=== PATIENT | male | born 1935 | race Caucasian/White ===

== ENCOUNTER → 2016-12-13 | Outpatient (CLI) | payer OTHER, MEDICARE ==
[2016-12-13 16:33] LABS: BASO % 0.6 %; BASO ABS # 0.05 K/uL (0-0.2); COMPLETE YES; EOS % 3.1 %; HEMATOCRIT 41.2 % (42-52); IG% 1.2 %; LYMPH % 23.9 %; LYMPH ABS # 1.85 K/uL (1.2-3.4); MEAN CELL VOLUME 96.3 fL (80-100); MEAN CORPUSCULAR HEMOGLOBIN 33.2 pg (25-34); MEAN CORPUSCULAR HGB CONC 34.5 g/dl (32-36); MONO % 8.7 %; NEUT % 62.5 %; PLATELET COUNT 245 K/uL (130-400); RED BLOOD COUNT 4.28 M/uL (4.7-6.1); WHITE BLOOD COUNT 7.74 K/uL (4.8-10.8)
[2016-12-13 16:46] LABS: ALT/SGPT 31 U/L (12-78); AST/SGOT 19 U/L (15-37); BLOOD UREA NITROGEN 24 mg/dl (7-18); BUN/CREATININE RATIO 14.1 (10-20); CALCIUM 9.1 mg/dl (8.5-10.1); CARBON DIOXIDE 36 mmol/L (21-32); CHLORIDE 101 mmol/L (98-107); GLUCOSE 129 mg/dl (70-99); POTASSIUM 4.8 mmol/L (3.5-5.1); SODIUM 140 mmol/L (136-145)
[2016-12-13 16:56] LABS: ALKALINE PHOSPHATASE 55 U/L (45-117); CHOLESTEROL 168 mg/dl (0-200); CHOLESTEROL/HDL RATIO 5.1; HDL CHOLESTEROL 33 mg/dl; LDL CHOLESTEROL CALCULATED 102 mg/dl; TRIGLYCERIDES 167 mg/dl (0-150); VERY LOW DENSITY LIPOPROT CALC 33 mg/dl
[2016-12-13 17:02] LABS: ESTIMATED AVERAGE GLUCOSE 143 mg/dl; HA1C FLAG Normal (Normal)
== END | disposition home or self-care (01) ==
LOC: C.LABBFT 11:33
PROVIDERS: ATTEND Internal Medicine
DX: J44.0 Chronic obstructive pulmonary disease with (acute) lower respiratory infection (principal); I10 Essential (primary) hypertension; R73.01 Impaired fasting glucose

== ENCOUNTER → 2017-01-28 | Outpatient (CLI) | payer OTHER, MEDICARE ==
--- NOTE | 2017-01-29 14:36 | PULMONARY FUNCTION TEST ---
SPIROMETRY: Very severe obstructive ventilatory disease. No signs of significant reversibility. LUNG VOLUMES: Notable signs of hyperinflation with elevated residual volume. DIFFUSION CAPACITY: Moderately decreased with correction based off alveolar ventilation.
--- NOTE | 2017-01-29 14:42 | PULMONARY FUNCTION TEST ---
This dictation is based off ATS criteria. SPIROMETRY: Very severe obstructive ventilatory disease with no signs of significant reversibility. LUNG VOLUMES: Hyperinflation noted with elevated residual volume. DIFFUSION: Moderately decreased diffusion capacity which corrects to alveolar volume.
== END | disposition home or self-care (01) ==
LOC: C.RC 11:03
PROVIDERS: ATTEND Physician Assistant
DX: J43.9 Emphysema, unspecified (principal); J44.9 Chronic obstructive pulmonary disease, unspecified

== ENCOUNTER → 2017-06-20 | Outpatient (CLI) | payer OTHER, MEDICARE ==
[2017-06-20 17:00] LABS: HEMATOCRIT 39.2 % (42-52); MEAN CELL VOLUME 93.8 fL (80-100); MEAN CORPUSCULAR HEMOGLOBIN 32.3 pg (25-34); MEAN CORPUSCULAR HGB CONC 34.4 g/dl (32-36); MEAN PLATELET VOLUME 10.3 fL (7.4-10.4); PLATELET COUNT 289 K/uL (130-400); RED BLOOD COUNT 4.18 M/uL (4.7-6.1)
[2017-06-20 17:12] LABS: BLOOD UREA NITROGEN 23 mg/dl (7-18); BUN/CREATININE RATIO 13.7 (10-20); CALCIUM 9.1 mg/dl (8.5-10.1); CARBON DIOXIDE 30 mmol/L (21-32); CHLORIDE 101 mmol/L (98-107); GLUCOSE 106 mg/dl (70-99); POTASSIUM 4.1 mmol/L (3.5-5.1); SODIUM 137 mmol/L (136-145)
[2017-06-20 17:19] LABS: ALB/GLOB RATIO 1.1 (0.9-2); ALKALINE PHOSPHATASE 59 U/L (45-117); ALT/SGPT 19 U/L (12-78); AST/SGOT 12 U/L (15-37); CHOLESTEROL 166 mg/dl (0-200); CHOLESTEROL/HDL RATIO 4.9; HDL CHOLESTEROL 34 mg/dl; LDL CHOLESTEROL CALCULATED 111 mg/dl; TRIGLYCERIDES 107 mg/dl (0-150); VERY LOW DENSITY LIPOPROT CALC 21 mg/dl
[2017-06-20 17:55] LABS: RATIO 378.8 mcg/mg (0-30.0)
== END | disposition home or self-care (01) ==
LOC: C.LABBFT 13:49
PROVIDERS: ATTEND Internal Medicine
DX: E11.9 Type 2 diabetes mellitus without complications (principal); J44.9 Chronic obstructive pulmonary disease, unspecified

== ENCOUNTER 2017-12-20 10:06 | Emergency (ER) | payer OTHER, MEDICARE ==
[~2017-12-20] VITALS: Ht 167.6 cm; Wt 89.9 kg
[2017-12-20 10:17] VITALS: TEMP 36.8; Ht 167.6 cm; Wt 89.9 kg
[2017-12-20] MEDS ORDERED: OXYMETAZOLINE HCL 0.05% NA SPR 15 ML BTL ONE (10:26)
[2017-12-20] MEDS ORDERED: OXYMETAZOLINE HCL 0.05% NA SPR 15 ML BTL STA (10:28)
[2017-12-20 11:24] LABS: BASO % 0.5 %; BASO ABS # 0.05 K/uL (0-0.2); EOS % 2.7 %; EOS ABS # 0.28 K/uL (0-0.5); HEMATOCRIT 36.8 % (42-52); HEMOGLOBIN 13.2 g/dL (14.0-18.0); IG# 0.04 K/uL (0.00-0.02); LYMPH % 13.2 %; LYMPH ABS # 1.39 K/uL (1.2-3.4); MEAN CELL VOLUME 94.6 fL (80-100); MEAN CORPUSCULAR HEMOGLOBIN 33.9 pg (25-34); MEAN CORPUSCULAR HGB CONC 35.9 g/dl (32-36); MEAN PLATELET VOLUME 9.7 fL (7.4-10.4); MONO % 6.9 %; MONO ABS # 0.73 K/uL (0.11-0.59); NEUT % 76.3 %; NEUT ABS # 8.04 K/uL (1.4-6.5); PLATELET COUNT 289 K/uL (130-400); RED CELL DISTRIBUTION WIDTH CV 13.4 % (11.5-14.5); RED CELL DISTRIBUTION WIDTH SD 45.9 fL (36.4-46.3); WHITE BLOOD COUNT 10.53 K/uL (4.8-10.8)
[2017-12-20 11:32] LABS: PTT PATIENT 25.4 SECONDS (21.0-31.0)
[2017-12-20 11:42] LABS: CREATININE 1.74 mg/dl (0.60-1.40); POTASSIUM 4.5 mmol/L (3.5-5.1)
--- NOTE | 2017-12-20 12:00 | EMERGENCY ROOM VISIT NOTE ---
ED Visit Note First contact with patient: 10:46 Patient was seen by our PA/METROLOGIST. I was involved in the patient's care and did evaluate the patient myself. I was involved in the care throughout the ER stay. The patient was bleeding from the right side of his nose. The blood could be seen coming from the anterior septum. The patient had a Rhino pack placed without difficulty. This seemed to control the bleeding. Laboratory testing was essentially unremarkable, no change compared to previous values. His blood pressure was nicely controlled. He will be discharged with antibiotics and outpatient follow-up.
[2017-12-20] MEDS ORDERED: AMX500 PO (12:48)
--- NOTE | 2017-12-20 12:48 | EMERGENCY ROOM VISIT NOTE ---
History First contact with patient: 10:46 Chief Complaint: NOSE BLEED (MINOR) Stated Complaint: NOSE BLEED History of Present Illness The patient is a 82 year old male who presents to the Emergency Room via private vehicle accompanied by with complaints of "nosebleed". The patient states that earlier today around 8:30 AM he had a spontaneous right- sided nosebleed. He denies any blood thinners. He denies any trauma or injury. He notes that he cannot get the bleeding to stop therefore prompting his arrival here today. He notes that he does experience nosebleeds frequently but notes that he does utilize 4 L of nasal cannula provided oxygen at night. He denies any pain. He denies any lightheadedness, syncope, or dizziness beyond baseline. Review of Systems A complete 10-point Review of Systems was discussed with the patient, with pertinent positives and negatives listed in the History of Present Illness. All remaining Review of Systems questions can be considered negative unless otherwise specified. Past Medical/Surgical History High blood pressure, pneumonia. Family History Noncontributory. Social History Smoking Status: Never Smoker Patient lives locally with family. Current/Historical Medications Scheduled Amoxicillin (Amoxicillin), 500 MG PO BID Aspirin (Aspirin Ec), 81 MG PO QAM Hydrochlorothiazide (Hctz), 25 MG PO QAM Ipratropium-Albuterol (Duoneb), 1 TREATMENT INH QID Levothyroxine Sodium (Levothyroxine Sodium), 1 TAB PO QAM Lisinopril (Zestril), 20 MG PO QAM Umeclidinium-Vilanterol (Anoro Ellipta 62.5-25 Mcg/INH), 1 PUFF INH QAM Scheduled PRN Albuterol Sulfate (Proair Respiclick), 2 PUFFS INH QID PRN for SOB/Wheezing Physical Exam Vital Signs Date Time Temp Pulse Resp B/P (MAP) Pulse Ox O2 Delivery O2 Flow Rate FiO2 12/20/17 13:19 120 18 97/74 93 Room Air 12/20/17 10:17 36.8 136 20 132/78 93 Room Air Physical Exam VITAL SIGNS - Vital signs and nursing notes were reviewed. Patient is tachycardic, respirating on room air 93% with BP at 132/78. GENERAL -82-year-old male appearing his stated age who is in no acute distress. Communicates well with provider and answers questions appropriately. SKIN - Without rashes. No meningeal petechial rash. There is bleeding from the right nare. HEAD - NC/AT. EYES - PERRL with EOMI bilaterally. Sclera anicteric. No hyphema. EARS - No deformities of external structures noted on gross examination bilaterally. No hemotympanum. NOSE - Midline and without cyanosis. Right-sided epistaxis noted. Examination within the right nare does reveal a pulsatile arterial bleed from the septum about 2 cm into the nare. MOUTH/OROPHARYNX - Without perioral cyanosis. Minimal blood in the posterior pharynx. Medical Decision & Procedures Laboratory Results 12/20/17 11:15 Red Blood Count 3.89, Mean Corpuscular Volume 94.6, Mean Corpuscular Hemoglobin 33.9, Mean Corpuscular Hemoglobin Concent 35.9, Mean Platelet Volume 9.7, Neutrophils (%) (Auto) 76.3, Lymphocytes (%) (Auto) 13.2, Monocytes (%) (Auto) 6.9, Eosinophils (%) (Auto) 2.7, Basophils (%) (Auto) 0.5, Neutrophils # (Auto) 8.04, Lymphocytes # (Auto) 1.39, Monocytes # (Auto) 0.73, Eosinophils # (Auto) 0.28, Basophils # (Auto) 0.05 12/20/17 11:15 Test 12/20/17 11:15 White Blood Count 10.53 K/uL (4.8-10.8) Red Blood Count 3.89 M/uL (4.7-6.1) Hemoglobin 13.2 g/dL (14.0-18.0) Hematocrit 36.8 % (42-52) Mean Corpuscular Volume 94.6 fL (80-100) Mean Corpuscular Hemoglobin 33.9 pg (25-34) Mean Corpuscular Hemoglobin Concent 35.9 g/dl (32-36) Platelet Count 289 K/uL (130-400) Mean Platelet Volume 9.7 fL (7.4-10.4) Neutrophils (%) (Auto) 76.3 % Lymphocytes (%) (Auto) 13.2 % Monocytes (%) (Auto) 6.9 % Eosinophils (%) (Auto) 2.7 % Basophils (%) (Auto) 0.5 % Neutrophils # (Auto) 8.04 K/uL (1.4-6.5) Lymphocytes # (Auto) 1.39 K/uL (1.2-3.4) Monocytes # (Auto) 0.73 K/uL (0.11-0.59) Eosinophils # (Auto) 0.28 K/uL (0-0.5) Basophils # (Auto) 0.05 K/uL (0-0.2) RDW Standard Deviation 45.9 fL (36.4-46.3) RDW Coefficient of Variation 13.4 % (11.5-14.5) Immature Granulocyte % (Auto) 0.4 % Immature Granulocyte # (Auto) 0.04 K/uL (0.00-0.02) Prothrombin Time 10.7 SECONDS (9.0-12.0) Prothromb Time International Ratio 1.0 (0.9-1.1) Activated Partial Thromboplast Time 25.4 SECONDS (21.0-31.0) Partial Thromboplastin Ratio 1.0 Anion Gap 7.0 mmol/L (3-11) Est Creatinine Clear Calc Drug Dose 34.4 ml/min Estimated GFR () 41.4 Estimated GFR (Non- 35.7 BUN/Creatinine Ratio 14.4 (10-20) Calcium Level 9.0 mg/dl (8.5-10.1) Medications Administered Medications (Trade) Dose Ordered Sig/Lora Route Start Time Stop Time Status Last Admin Dose Admin Oxymetazoline HCl (Afrin 0.05% Nasal [place]) 2 sprays NOW STAT NA 12/20/17 10:28 12/20/17 10:30 DC 12/20/17 10:31 2 SPRAYS Medical Decision Patient was seen and evaluated as above in Room D6. He presents to us today with right-sided epistaxis. Review was performed of nursing notes and vital signs. After obtaining a thorough history and physical examination the above work up was performed. He was tachycardic. I did elect to obtain baseline labs to ensure that his hemoglobin was not significantly decreased and coags were normal. I did initially attempt Afrin nasal spray and clamped the anterior nose without. He continued to bleed. I then placed Fibrillar cellulose hemostatic material over this and he continued to bleed. I then advanced a 5.5 cm rapid Rhino into the right nostril. This was after discussing benefit versus risks. He tolerated this well. This was inflated. Care was taken so as to not inflate too much. He continued to bleed. I then discussed the case with the attending physician. He came to bedside. We then inflated this and retracted slightly to provide better coverage overlying the bleeding region. This was with good hemostasis. Patient was observed here for quite some time. No further bleeding. Patient notes some pressure in the nostril therefore I did let out 1mL of air. He notes that it bled a little bit therefore 1 mL was placed back into this. It was checked to ensure necrosis would not develop. He notes that he does not feel lightheaded, and has no symptoms of blood loss. I suspect his initial tachycardia was likely from that of the anxiety/excitement of the event. His re-eval heart rate was slightly up at 120 and blood pressure was found to be lower at 97/74 however he was not symptomatic. I again suspect this is all likely secondary to situation not from blood loss. Given that his hemoglobin here was 13.2, Coags normal and his metabolic panel does reveal does not suggest emergent process I believe he is stable for out patient management. Of further note, Sodium was 130. He is to have this rechecked with the PCP. Chronic kidney disease suspected. He is to return with worsening and in 2-3 days for removal of the rapid rhino and reevaluation. The patient was educated upon management, had questions answered prior to discharge, and was discharged home in good condition. Case was discussed with the attending physician. Blood pressure reviewed and was found to be appropriate. Medication list reviewed. In the evaluation and treatment of this patient the following differential diagnoses were entertained: Anterior epistaxis, posterior epistaxis, acute blood loss, among others. Impression Primary Impression: Anterior epistaxis Additional Impressions: Anemia Hyponatremia Departure Information Dispostion Home / Self-Care Condition GOOD Prescriptions Amoxicillin (Amoxicillin) 500 Mg Cap 500 MG PO BID for 5 Days, #10 TABS Prov: Sandeep Veloz PA-C 12/20/17 Referrals Kt Valerio M.D. (PCP) Brady Aguiar D.O. Patient Instructions ED Hyponatremia, My [facility] Additional Instructions You have been treated in the Emergency Department today for your Nose Bleed ( Epistaxis). Amoxicillin 500 mg every 12 hours for 5 days. Leave the packing in your nose until you return to the Emergency Department to have it removed by a Healthcare Provider. It is dangerous to remove this packing and should NOT be attempted at home. Please return in 2-3 days for removal. Do NOT blow your nose for the next few days. This can result in recurrence of your nosebleed. You should consider using a humidifier to help moisten the air and decrease instances of nosebleeds. You can use [id number] saline nasal sprays to help moisten the nasal mucosa and decrease instances of nosebleeds. As with any trip to the Emergency Department, you should follow-up with your Primary Care Provider from today's visit. Please have your family doctor follow -up with your lab values. Your lab work here revealed your sodium was low. Return to the emergency department if your symptoms persist despite treatment plan outlined above or if the following symptoms occur: uncontrollable nosebleed , dizziness, lightheadedness, pre-syncope, or re-bleed. Problem Qualifiers
[2017-12-20 13:19] VITALS: BP 97/74; PULSE 120; O2SAT 93
[2017-12-22] MEDS ORDERED: UMEC1AER INH (11:00)
[2017-12-22] MEDS ORDERED: ASPI81TA28 PO (11:00)
[2017-12-22] MEDS ORDERED: HYDR25TA4 PO (11:00)
[2017-12-22] MEDS ORDERED: ALBU18002 INH (11:00)
[2017-12-22] MEDS ORDERED: LEVO100T7 PO (11:00)
[2017-12-22] MEDS ORDERED: LISI-725 PO (11:00)
[2017-12-22] MEDS ORDERED: IPRASOL4 INH (11:00)
== END 2017-12-20 13:22 | disposition home or self-care (01) ==
LOC: C.EDB 10:07 → C.EDD 13:22
DX: R04.0 Epistaxis (principal); D64.9 Anemia, unspecified; E87.1 Hypo-osmolality and hyponatremia; I10 Essential (primary) hypertension; Z79.82 Long term (current) use of aspirin

== ENCOUNTER 2017-12-22 15:05 | Emergency (ER) | payer OTHER, MEDICARE ==
[~2017-12-22] VITALS: Ht 167.6 cm; Wt 90.7 kg
[~2017-12-22 15:05] MED LIST: ALBU18002 INH; AMX500 PO; ASPI81TA28 PO; HYDR25TA4 PO; IPRASOL4 INH; LEVO100T7 PO; LISI-725 PO; UMEC1AER INH
[2017-12-22 15:19] VITALS: TEMP 36.8; Ht 167.6 cm; Wt 90.7 kg
--- NOTE | 2017-12-22 15:51 | EMERGENCY ROOM VISIT NOTE ---
History First contact with patient: 15:21 Chief Complaint: NASAL PAIN/INJURY Stated Complaint: NEEDS NOSE PLUG REMOVED History of Present Illness The patient is a 82 year old male who presents to the Emergency Room via private vehicle accompanied by female with complaints of "nose plug with complaints of knees removed". The patient states that he was here 2 days ago and had a rapid Rhino placed in his right nostril. This was secondary to arterial bleed on the right nasal septum. He notes no bleeding since that time. He denies any chest pain, shortness of breath, fevers or chills. He notes that he did let little air out of the apparatus yesterday for comfort reasons. Review of Systems A complete 6-point Review of Systems was discussed with the patient, with pertinent positives and negatives listed in the History of Present Illness. All remaining Review of Systems questions can be considered negative unless otherwise specified. Past Medical/Surgical History Nosebleed. Family History Noncontributory Social History Smoking Status: Never Smoker Patient lives locally with Current/Historical Medications Scheduled Amoxicillin (Amoxicillin), 500 MG PO BID Aspirin (Aspirin Ec), 81 MG PO QAM Hydrochlorothiazide (Hctz), 25 MG PO QAM Levothyroxine Sodium (Levothyroxine Sodium), 100 MCG PO QAM Lisinopril (Zestril), 20 MG PO QAM Umeclidinium-Vilanterol (Anoro Ellipta 62.5-25 Mcg/INH), 1 PUFF INH QAM Scheduled PRN Albuterol Sulfate (Proair Respiclick), 2 PUFFS INH QID PRN for SOB/Wheezing Ipratropium-Albuterol (Duoneb), 1 TREATMENT INH QID PRN for SOB/Wheezing Physical Exam Vital Signs Date Time Temp Pulse Resp B/P (MAP) Pulse Ox O2 Delivery O2 Flow Rate FiO2 12/22/17 16:06 92 20 128/62 94 12/22/17 15:19 36.8 114 20 126/67 92 Room Air Physical Exam VITAL SIGNS - Vital signs and nursing notes were reviewed. Stable. Slightly tachycardic. GENERAL -82-year-old male appearing his stated age who is in no acute distress. Communicates well with provider and answers questions appropriately. SKIN - Without rashes. No meningeal or petechial rash. HEAD - NC/AT. EYES -no hyphema. No subconjunctival hemorrhage. EARS - No deformities of external structures noted on gross examination bilaterally. NOSE -rapid Rhino in place within the right nostril. Post removal inspection reveals septum midline and without cyanosis. No epistaxis or purulent drainage noted. Septum midline without deviation or septal hematoma noted. No necrosis MOUTH/OROPHARYNX - Without perioral cyanosis Medical Decision & Procedures Medical Decision Patient was seen and evaluated as above in room D9. Review was performed of nursing notes and vital signs. After obtaining a thorough history and physical examination the rapid Rhino was removed without difficulty. I personally cared for this patient on a previous visit where the rhino was placed. He has an appointment tomorrow with the ENT doctor, Dr. Patel. There was no bleeding and he was observed here for some time. He was also seen by the attending physician. He was found to be tachycardic however he notes that this is likely secondary to not being on oxygen at this time. He denies any new chest pain or shortness of breath. He notes nothing different from baseline. He was educated to not blow the nose, or bend over or increased nasal pressure. The patient was educated upon management, had questions answered prior to discharge , and was discharged home in good condition. I attest that I have personally reviewed the patient medication list. I attest that I have reviewed the patient's blood pressure and it was found to be normal. Impression Primary Impression: Encounter for removal of nasal packing Departure Information Dispostion Home / Self-Care Condition GOOD Referrals Kt Valerio M.D. (PCP) Patient Instructions My [facility] Additional Instructions You were seen in the emergency department for removal of your rapid Rhino. Please keep your appointment with Dr. Patel tomorrow. Please contact the company that supplies her oxygen and discuss with them either humidified possibilities, or different mask possibilities. Please do not blow your nose. Please do not bend over to tie shoes or anything like that as it can increase the pressure in your nose and cause a bleeding to occur. Please return with any new/concerning symptoms.
[2017-12-22 16:06] VITALS: BP 128/62; PULSE 92; O2SAT 94
--- NOTE | 2017-12-22 16:51 | EMERGENCY ROOM VISIT NOTE ---
ED Visit Note First contact with patient: 15:21 Patient was seen by our PA/[employer]CR[employer]ILM [employer]PLICATING UNIT SUPERVISOR. I was involved in the patient's care and did evaluate the patient myself. I was involved in the care throughout the ER stay. The patient had the packing removed from his nose without difficulty, there was no bleeding. He was discharged home with ENT follow-up.
== END 2017-12-22 16:00 | disposition home or self-care (01) ==
LOC: C.EDB 15:06 → C.EDD 16:00
DX: Z09 Encounter for follow-up examination after completed treatment for conditions other than malignant neoplasm (principal); R04.0 Epistaxis; Z79.82 Long term (current) use of aspirin; Z79.899 Other long term (current) drug therapy

== ENCOUNTER → 2017-12-29 | Outpatient (CLI) | payer OTHER, MEDICARE ==
[~2017-12-29] MED LIST changes: -AMX500 PO
[2017-12-29 16:50] LABS: BASO ABS # 0.08 K/uL (0-0.2); EOS % 3.6 %; EOS ABS # 0.29 K/uL (0-0.5); HEMATOCRIT 31.3 % (42-52); HEMOGLOBIN 11.1 g/dL (14.0-18.0); LYMPH ABS # 2.03 K/uL (1.2-3.4); MEAN CORPUSCULAR HGB CONC 35.5 g/dl (32-36); MEAN PLATELET VOLUME 9.6 fL (7.4-10.4); MONO % 8.1 %; MONO ABS # 0.66 K/uL (0.11-0.59); NEUT % 61.1 %; NEUT ABS # 4.97 K/uL (1.4-6.5); PLATELET COUNT 343 K/uL (130-400); RED CELL DISTRIBUTION WIDTH CV 13.8 % (11.5-14.5); RED CELL DISTRIBUTION WIDTH SD 47.5 fL (36.4-46.3); WHITE BLOOD COUNT 8.13 K/uL (4.8-10.8)
[2017-12-29 17:15] LABS: ALBUMIN 3.6 gm/dl (3.4-5.0); ALT/SGPT 14 U/L (12-78); AST/SGOT 10 U/L (15-37); BLOOD UREA NITROGEN 28 mg/dl (7-18); CALCIUM 9.2 mg/dl (8.5-10.1); CARBON DIOXIDE 30 mmol/L (21-32); CHOLESTEROL 146 mg/dl (0-200); CREATININE 1.75 mg/dl (0.60-1.40); GLUCOSE 104 mg/dl (70-99); POTASSIUM 4.4 mmol/L (3.5-5.1); SODIUM 131 mmol/L (136-145); TOTAL PROTEIN 7.2 gm/dl (6.4-8.2)
[2017-12-29 17:26] LABS: ALKALINE PHOSPHATASE 64 U/L (45-117); LDL CHOLESTEROL CALCULATED 97 mg/dl
== END | disposition home or self-care (01) ==
LOC: C.LABBFT 13:17
PROVIDERS: ATTEND Internal Medicine
DX: E11.9 Type 2 diabetes mellitus without complications (principal)

== ENCOUNTER 2018-01-11 19:42 | Emergency (ER) | payer OTHER, MEDICARE ==
[~2018-01-11] VITALS: Ht 167.6 cm; Wt 90.3 kg
[2018-01-11 19:47] VITALS: TEMP 36.8; Ht 167.6 cm; Wt 90.3 kg
[2018-01-11] MEDS ORDERED: FINA5TAB PO (20:30)
[2018-01-11] MEDS ORDERED: OXYMETAZOLINE HCL 0.05% NA SPR 15 ML BTL STA (20:37)
[2018-01-11 21:23] VITALS: BP 147/96; PULSE 111; O2SAT 91
--- NOTE | 2018-01-12 01:41 | EMERGENCY ROOM VISIT NOTE ---
History Report prepared by Tanner: Elmer Johnson Under the Supervision of: Dr. Vazquez Hendricks M.D. First contact with patient: 20:04 Chief Complaint: NOSE BLEED (MINOR) Stated Complaint: NOSE BLEED History of Present Illness The patient is a 82 year old male who presents to the Emergency Room with complaints of constant, severe nose bleed beginning 3 hours ago. He notes experiencing blood draining down his throat. The patient reports that he had a similar nose bleed cauterized by Dr. Patel 3 weeks ago following having a rapid rhino placed in the [facility] ED. The patient states that Dr. Patel removed the scab 7 days ago and informed him that it had healed well. He denies any lightheadedness, chest pain, weakness, or rectal bleeding. He states he is not on any blood thinners. Source of History: patient Onset: 3 hours ago Position: nose Symptom Intensity: severe Quality: other (bleeding ) Timing: constant Modifying Factors (Worsening): other (none ) Modifying Factors (Relieving): other (none ) Associated Symptoms: No chest pain, No weakness Note: Denies: Lightheadedness or rectal bleeding. Review of Systems See HPI for pertinent positives & negatives. A total of 6 systems reviewed and were otherwise negative. Past Medical & Surgical Medical Problems: (1) Bleeding nose Family History FH: HTN (hypertension) FH: lung disease Heart disease Social History Smoking Status: Former Smoker Drug Use: none Marital Status: Housing Status: lives with significant other Occupation Status: retired Current/Historical Medications Scheduled Aspirin (Aspirin Ec), 81 MG PO QAM Finasteride (Proscar), 5 MG PO QAM Hydrochlorothiazide (Hctz), 25 MG PO QAM Levothyroxine Sodium (Levothyroxine Sodium), 100 MCG PO QAM Lisinopril (Zestril), 20 MG PO QAM Umeclidinium-Vilanterol (Anoro Ellipta 62.5-25 Mcg/INH), 1 PUFF INH QAM Scheduled PRN Albuterol Sulfate (Proair Respiclick), 2 PUFFS INH QID PRN for SOB/Wheezing Ipratropium-Albuterol (Duoneb), 1 TREATMENT INH QID PRN for SOB/Wheezing Allergies Coded Allergies: No Known Allergies (Unverified , 01/11/18) Physical Exam Vital Signs Date Time Temp Pulse Resp B/P (MAP) Pulse Ox O2 Delivery O2 Flow Rate FiO2 01/11/18 21:23 111 18 147/96 91 01/11/18 19:47 36.8 107 18 144/85 91 Room Air Physical Exam Constitutional: Vital signs reviewed. Eyes: Pupils are equal round reactive to light. Conjunctiva are noninjected. ENT: Pharynx is clear without erythema or exudate. Mucous membranes are moist. Neck supple without meningeal signs. Scarring to right nasal septum with active bleeding. Respiratory: Clear to auscultation bilaterally. Breath sounds are equal bilaterally. Cardiovascular: Regular rate and rhythm. No rubs or gallops. Integumentary: No cyanosis. Neurological: The patient is awake and alert. No focal deficits. Psychiatric: Normal affect. Medical Decision & Procedures Medications Administered Medications (Trade) Dose Ordered Sig/Lora Route Start Time Stop Time Status Last Admin Dose Admin Oxymetazoline HCl (Afrin 0.05% Nasal [place]) 2 sprays NOW STAT NA 01/11/18 20:37 01/11/18 20:38 DC 01/11/18 20:00 2 SPRAYS Procedure Anterior Nasal Packing Indication: Epistaxis Verbal consent obtained. Risks and benefits were explained with the usual customary discussion. A time out was taken. The right naris was prepped with Afrin and lidocaine. A 4.5-cm nasal balloon was placed in a standard fashion. The patient tolerated this well. Hemostasis was achieved. No complications. ED Course 2017: The patient was evaluated in room C02. A complete history and physical exam was performed. Rapid Rhino procedure was performed. 2036: Ordered Oxymetazoline HCL 2 sprays NA. 2040: I reevaluated the patient. He is no longer bleeding. I will reevaluate him later. I advised him to follow up with Dr. Patel in 2-3 days for removal of the rapid rhino. 2105: I reevaluated the patient. He is not bleeding. I am paging Dr. Patel for followup. 2106: I discussed the patient's case with Dr. Patel - [facility]. he states that he will see the patient in his office in 3 days. 2129: Upon reevaluation, the patient appeared to have improvement of his symptoms. I discussed tonight's findings with him. He verbalized agreement of the treatment plan. He was discharged home. Medical Decision This is an 82-year-old male presents with epistaxis. I did perform a limited focused review of portions of the patient's old chart on the electronic medical record. The patient was seen in the ED on December 20 for a nosebleed for which he had a rapid rhino placed. He returned to the ED on the to have the rapid rhino removed. I did evaluate the patient as noted above. He does have active epistaxis from the right naris. Afrin was applied and I did achieve hemostasis using a rapid Rhino as described above. He did tolerate the procedure well. We did observe him for sometime in the emergency department and he had no rebleeding. He had no pain with inflation of the balloon. I did discuss case with Dr. Patel of ENT who will see him in the office on Friday. He was discharged in good condition. Medication Reconcilliation Current Medication List: was personally reviewed by me Blood Pressure Screening Patient's blood pressure: Elevated blood pressure Blood pressure disposition: Referred to PCP The patient is hypertensive. Consults Time Called: 2105 Consulting Physician: Dr. Patel - [facility] Returned Call: [phone]: I discussed the patient's case with Dr. Patel - [facility]. he states that he will see the patient in his office in 3 days. Impression Primary Impression: Epistaxis Scribe Attestation The scribe's documentation has been prepared under my direct and personally reviewed by me in its entirety. I confirm that the note above accurately reflects all work, treatment, procedures, and medical decision making performed by me. Departure Information Dispostion Home / Self-Care Referrals Kt Valerio M.D. (PCP) Forms HOME CARE DOCUMENTATION FORM, IMPORTANT VISIT INFORMATION, WORK / SCHOOL INSTRUCTIONS Patient Instructions ED Nosebleed, My [facility] Additional Instructions You have been examined and treated today on an emergency basis only. This is not a substitute for, or an effort to provide, complete comprehensive medical care. It is impossible to recognize and treat all injuries or illnesses in a single emergency department visit. It is therefore important that you follow up closely with Dr. Patel in 2-3 days for packing removal. Call as soon as possible for an appointment. Return for worsening symptoms or if you develop lightheadedness, chest pain, shortness of breath or any other concerning symptoms.
[2018-01-14] MEDS ORDERED: BRIN1SUS OPB (11:00)
[2018-01-14] MEDS ORDERED: BIMA0.01 OPB (11:00)
== END 2018-01-11 21:25 | disposition home or self-care (01) ==
LOC: C.EDB 19:43 → C.EDC 21:25
DX: R04.0 Epistaxis (principal); Z79.899 Other long term (current) drug therapy; Z79.82 Long term (current) use of aspirin; Z87.891 Personal history of nicotine dependence

== ENCOUNTER → 2018-01-15 | Day surgery (SDC) | payer OTHER, MEDICARE ==
[2018-01-14 11:01] VITALS: BMI 32.0
[~2018-01-15] VITALS: Ht 167.6 cm; Wt 89.5 kg
[~2018-01-15] MED LIST changes: -ASPI81TA28 PO; +ATROPINE SULFATE 0.1 MG/ML 5ML SYR IV PRN; +BACITRACIN OINT 15 GM TUBE ONE; +BIMA0.01 OPB; +BRIN1SUS OPB; +EpHEDrine SULFATE INJ 50 MG/ML AMP IV PRN; +EpINEphrine HCL INJ 1 MG/ML 1ML SYRINGE ONE; +FENTANYL CITRATE INJ 50 MCG/1 ML 2 ML VIAL IV PRN; +FENTANYL CITRATE INJ 50 MCG/1 ML 2 ML VIAL ONE; +FINA5TAB PO; +GELATIN SPONGE SZ 100 ONE; +LACTATED RINGER'S 1000ML 1,000 ML IV SCH; +LIDO 2%/EPINEPHRINE 1:100000 20 ML VIAL ONE; +LIDOCAINE HCL 2% 2 ML VIAL (20MG/ML) ONE; +MIDAZOLAM HCL 1 MG/ML 2ML VIAL ONE; +ONDANSETRON INJ 2 MG/ML 2 ML VIAL IV PRN; +PROPOFOL IV EMULSION 10 MG/ML 20 ML VIAL ONE; +SODIUM CHLORIDE 0.9% 1000ML 1,000 ML IV SCH; +TETRACAINE 4% SOLN TOP ONE; +TETRACAINE 4% TOPICAL SOLUTION TOP ONE
[2018-01-15 13:54] VITALS: Ht 167.6 cm; Wt 89.5 kg
--- NOTE | 2018-01-15 14:07 | History and Physical ---
History & Physical Date January 15, 2018. Chief Complaint nose bleeds History of Present Illness The patient is a 82 year old male with complaints of recurrent epistaxis, packed right side in ER Friday, for endo cautery Past Medical/Surgical History Medical Problems: (1) Bleeding nose Additional History Hepatic Disease: No Endocrine Disorder: No Kidney Disease: No Hypertension: Yes Heart Disease: No Bleeding Tendencies: Yes Infectious Diseases: No Allergies Coded Allergies: No Known Allergies (Unverified , 01/15/18) Home Medications Scheduled Bimatoprost (Lumigan), 1 DROPS OPB HS Brinzolamide Oph (Azopt Oph), 1 DROP OPB QAM Finasteride (Proscar), 5 MG PO QAM Hydrochlorothiazide (Hctz), 25 MG PO QAM Levothyroxine Sodium (Levothyroxine Sodium), 100 MCG PO QAM Lisinopril (Zestril), 20 MG PO QAM Umeclidinium-Vilanterol (Anoro Ellipta 62.5-25 Mcg/INH), 1 PUFF INH QAM Scheduled PRN Albuterol Sulfate (Proair Respiclick), 2 PUFFS INH QID PRN for SOB/Wheezing Ipratropium-Albuterol (Duoneb), 1 TREATMENT INH QID PRN for SOB/Wheezing Physical Examination Skin: warm/dry, no rash Eyes: normal inspection, EOMI, sclerae normal ENT: + pertinent finding (septum deviated to left, packing right nostril) Head: normocephalic, atraumatic Neck: supple, no adenopathy, trachea midline Respiratory/Chest: lungs clear, normal breath sounds, no respiratory distress Cardiovascular: regular rate, rhythm, no edema, no murmur Abdomen / GI: normal bowel sounds, non tender Back: normal inspection Extremities: normal inspection, normal range of motion Diagnosis epistaxis ASA Classification: ASA Class II Plan of Treatment endoscopic cautery
[2018-01-15 15:57] VITALS: BP 100/70; PULSE 105; TEMP 36.8; O2SAT 92
--- NOTE | 2018-01-15 15:59 | [facility] Post Operative Brief Note ---
Immediate Operative Summary Operative Date January 15, 2018. Pre-Operative Diagnosis Epistaxis Post-Operative Diagnosis Epistaxis Procedure(s) Performed Endoscopic Cautery and Packing Surgeon Dr. Patel Drive In Waiter/Waitress Surgeon(s) none Estimated Blood Loss 2 cc Findings Consistent with Post-Op Diagnosis Specimens none per surgeon Drains None Anesthesia Type MAC Complication(s) none Disposition Accompanied Pt To Recover: yes Disposition: Recovery Room / PACU
--- NOTE | 2018-01-15 16:01 | Discharge Instructions ---
Discharge Instructions Date of Service January 15, 2018. Admission Reason for Admission: Epistaxis Discharge Discharge Diagnosis / Problem: same Discharge Goals Goal(s): Therapeutic intervention Activity Recommendations Activity Limitations: resume your previous activity . Instructions / Follow-Up Instructions / Follow-Up ACTIVITY RECOMMENDATIONS: * Being up and around is good, but no strenuous activity, heavy lifting or physical exertion for one week. * Keep your head elevated 30 degrees when lying down or sleeping. * Do not blow your nose for 48 hours, sniff back instead. * Avoid hot showers. OVER THE COUNTER MEDICATIONS: * You may use Tylenol * Avoid aspirin or aspirin containing products, e.g. as they may increase bleeding. SPECIAL CARE INSTRUCTIONS: * Begin irrigating your nose with saline solution today, at least six to ten times per day and sniff back to help remove old clots or crust. * Please call with any significant and/or progressive pain, redness, swelling around the eyes, visual changes, fever of 101.5 degrees F, active bleeding or any problems or concerns. * If active bleeding occurs, spray the nose three times at one minute intervals with Afrin spray and call or cell phone: . If unable to reach the doctor, go to the nearest Emergency Department. Special Diet: * Avoid extremely hot fluids. FOLLOW UP VISIT: Follow-up Visit with Dr. Patel If not already scheduled, please call to schedule. Current Hospital Diet Patient's current hospital diet: Discharge Diet Recommended Diet: Regular Diet Procedures Procedures Performed: Endoscopic Cautery and Packing Pending Studies Studies pending at discharge: no Laboratory Results Hemoglobin A1c Test 12/29/17 13:18 Range/Units Estimated Average Glucose 126 mg/dl Hemoglobin A1c 6.0 H 4.5-5.6 % Lipid Panel Test 12/29/17 13:18 Range/Units Triglycerides Level 81 0-150 mg/dl Cholesterol Level 146 0-200 mg/dl HDL Cholesterol 33 mg/dl Cholesterol/HDL Ratio 4.4 LDL Cholesterol, Calculated 97 mg/dl Medical Emergencies . Who to Call and When: Medical Emergencies: If at any time you feel your situation is an emergency, please call 911 immediately. . Non-Emergent Contact Non-Emergency issues call your: Primary Care Provider . "Provider Documentation" section prepared by Vietnamese How Jorge. . [place] Drug Monitoring Program Search Results: no issues identified
--- NOTE | 2018-01-15 16:13 | Anesthesiology Progress Note ---
Anesthesia Post Op Note Date & Time January 15, 2018 at 16:13 Vital Signs Pain Intensity: 0 Vital Signs Past 12 Hours Date Time Temp Pulse Resp B/P (MAP) Pulse Ox O2 Delivery O2 Flow Rate FiO2 01/15/18 15:57 36.8 105 20 100/70 92 Room Air Notes Mental Status: alert / awake / arousable, participated in evaluation Nausea / Vomiting: adequately controlled Pain: adequately controlled Airway Patency, RR, SpO2: stable & adequate BP & HR: stable & adequate Hydration State: stable & adequate Anesthetic Complications: no major complications apparent
--- NOTE | 2018-01-16 07:58 | OPERATIVE REPORT ---
DATE OF OPERATION: 01/15/2018 PREOPERATIVE DIAGNOSIS: Epistaxis. POSTOPERATIVE DIAGNOSIS: Epistaxis. PROCEDURE: Endoscopic cautery. SURGEON: Dr. Patel. ANESTHESIA: Local with sedation. COMPLICATIONS: None. BLOOD LOSS: 2 mL HISTORY: This 82-year-old gentleman who had a cautery at the right side of the mid septum by me 2 weeks ago, again developed bleeding requiring packing in the Emergency Room, Friday. He still has epistat in place and requested definitive treatment. DESCRIPTION OF PROCEDURE: Patient was brought to the operating room and placed in supine position, sedated, prepped and draped in usual sterile manner. The epistat in the right nostril was deflated and removed. The right side of the nose was anesthetized using cottonoids with topical solution of 2% Xylocaine with 1:100,000 strength epinephrine, also injection of 2% Xylocaine with 1:100,000 strength epinephrine was used. The bleeding site was at the [id number] septum opposite the middle turbinate. This was cauterized using the suction cautery with good control and the Gelfoam packing with bacitracin was placed. The patient tolerated the procedure well and was taken to recovery area in satisfactory condition. I attest to the content of the Intraoperative Record and any orders documented therein. Any exception s are noted below.
== END | disposition home or self-care (01) ==
LOC: C.ACU 13:26
PROVIDERS: ATTEND Otolaryngology
DX: R04.0 Epistaxis (principal); J44.9 Chronic obstructive pulmonary disease, unspecified; I12.9 Hypertensive chronic kidney disease with stage 1 through stage 4 chronic kidney disease, or unspecified chronic kidney disease; E78.5 Hyperlipidemia, unspecified; E11.9 Type 2 diabetes mellitus without complications; N18.3 Chronic kidney disease, stage 3 (moderate); N40.0 Benign prostatic hyperplasia without lower urinary tract symptoms; E66.9 Obesity, unspecified; Z79.82 Long term (current) use of aspirin; Z87.891 Personal history of nicotine dependence

== ENCOUNTER 2021-03-01 15:30 | Inpatient (IN) ==
[2021-03-01] MEDS ORDERED: SODIUM CHLORIDE 0.9% 1000ML 1,000 ML IV SCH (16:15)
--- NOTE | 2021-03-01 16:16 | Emergency Department Note ---
Impression & Plan Acute hyponatremia, Weakness, Constipation, Poor appetite ED Provider Note INFORMANT: Patient ED PROVIDER(S): Inder Cuevas MD CHIEF COMPLAINT: Weakness PLAN: Disposition: Admitted Condition: Good Outpatient prescription management: none Referral: None MEDICAL DECISION MAKING: Patient presented because of progressive weakness. He has poor appetite. He underwent a work-up and was found to have hyponatremia on chemistry panel. He had a mild leukocytosis. His BNP and troponin were negative. The patient's ECG showed a sinus tachycardia without ischemia. He was gently hydrated. CT imaging of the head and the abdomen and pelvis did not reveal any evidence of acute pathology. Chest x-ray was negative. Further management in the hospital will be necessary. [facility] Pr[facility]. The patient was evaluated in the ER and admitted. Triage Nursing notes reviewed and agree them. Vital Signs: reviewed and remarkable for hypertension Differential diagnosis: Infection, dehydration, metabolic abnormality, hypo/hyperglycemia, electrolyte disturbance, anemia, hypoxia, cardiac sources, intracerebral event, toxicologic, neurologic, as well as other pathologies. Diagnostics interpreted by me: ECG: Twelve-lead ECG reveals sinus tachycardia with PACs at 101 bpm. Normal axis and QRS. No ST elevation or depression. No PVCs. Cardiac Monitoring: Cardiac monitoring ordered by me: The patient was placed on continuous cardiac monitoring and observed. It revealed a normal sinus rhythm at 88 beats per minute without ectopy or evidence of dysrhythmia. Imaging studies: Chest x-ray. Findings: A chest x-ray was performed and revealed no pneumothorax, effusion, infiltrate, pulmonary edema, free air under the diaphragm, or wide mediastinum. Impression: No acute disease. Head CT: A noncontrast CT scan of the head was performed and was negative for tumor, fracture, intracranial hemorrhage, or other acute pathology. CT scan of the abdomen pelvis is negative for acute pathology. HPI: The patient is a 85 year old male who presents to the Emergency Room with complaints of weakness. This started a few weeks ago and is worsening. The patient also notes the following associated symptoms, two falls, poor appetite, constipation. The patient has found no relieving factors. Current pain is rated as 0/10. 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 The PCP directed to the ER due to weakness. Pt denies LOC, headache, fevers, chills, diaphoresis, visual changes, neck pain, chest pain, breathing difficulties, nausea, vomiting, abdominal pain, new back pain, melena, hematochezia, urinary symptoms, numbness, lymphadenopathy, rash, or other complaints. ROS: See above HPI for pertinent positives & negatives. A total of 10 systems reviewed and were otherwise negative. PAST MEDICAL HISTORY:See Below , CLBP, COPD, HTN PAST SURGICAL HISTORY:See Below, FAMILY HISTORY:See Below SOCIAL HISTORY:See Below, HOME MEDICATIONS:See Below ALLERGIES:See Below VITALS:See Below PHYSICAL EXAMINATION: GENERAL: Awake, tired-appearing, in no distress HENT: Normocephalic, atraumatic. Oropharynx unremarkable. EYES: Normal conjunctiva. Sclera non-icteric. NECK: Inspection normal. Non-tender. Supple. No nuchal rigidity. FROM. No masses. RESPIRATORY: Clear to auscultation. No wheezes. No rales. Increased respiratory effort. CARDIAC: Normal rate. Normal rhythm. No murmurs. No rubs. Extremities warm and well perfused. Pulses equal. No JVD. GI: Soft, non-distended. No tenderness to palpation. No rebound or guarding. No masses. RECTAL: Deferred. MUSCULOSKELETAL: Atraumatic. Chest examination reveals no tenderness. The back is symmetrical on inspection without obvious abnormality. There is no CVA tenderness to palpation. No joint edema. LOWER EXTREMITIES: Calves are equal size bilaterally and non-tender. No edema. No discoloration. NEURO: Normal sensorium. No sensory or motor deficits noted. SKIN: No rash or jaundice noted. Inder Cuevas MD Past Med/Surg History Medical History (Updated 03/01/21 @ 21:02 by Inder Cuevas MD) Chronic respiratory failure with hypoxia 3 L NC O2 continuously Controlled type 2 diabetes mellitus with chronic kidney disease COPD (chronic obstructive pulmonary disease) Diverticulosis Epistaxis Hyperlipidemia Hypertension Hypothyroidism Obstructive sleep apnea of adult Pneumonia Surgical History (Updated 03/01/21 @ 18:58 by Jeff Prado) H/O cataract extraction H/O colonoscopy Family History (Updated 03/01/21 @ 19:06 by Jeff Prado) Father COPD (chronic obstructive pulmonary disease) Mother Hypertension Brother Dementia Daughter Breast cancer Other Heart disease Denies family history of Ovarian cancer Prostate cancer Myocardial infarction Colorectal cancer Social History (Updated 03/01/21 @ 19:04 by Jeff Prado) Smoking Status: Former smoker Age Started Using Tobacco: 16; Age Quit Using Tobacco: 40; packs per day: 1; Years Smoked: 25; Second Hand Exposure: Yes; Hx Alcohol Use: No Hx Substance Use: No Preferred Language: Portuguese Hearing Ability: Normal marital status: Current Living Situation: Spouse Current Living Situation Comment: [employer] current occupational status: retired How many Children do You have: 2 other: [employer] Joyce Feels Safe at Home: Yes Dental Care, Regularly: Yes Physical Activity Frequency: Does not Exercise Seatbelt Use: always Sunscreen Use: No Allergies Allergies Allergy/AdvReac Type Severity Reaction Status Date / Time No Known Allergies Allergy Verified 03/01/21 16:22 Home Meds Previous Rx's Medication Instructions Recorded CPAP Machine #1 ea 06/14/19 miscellaneous medical supply #1 ea 03/28/20 hydrochlorothiazide 25 mg tablet 25 mg PO DAILY #90 tab 07/20/20 diltiazem HCl 120 mg 240 mg PO DAILY #180 cap 07/25/20 capsule,extended release 24 hr lisinopril 20 mg tablet 20 mg PO DAILY #90 tab 10/24/20 finasteride 5 mg tablet 5 mg PO DAILY #90 tab 12/12/20 levothyroxine 100 mcg tablet 100 mcg PO DAILY #90 tab 02/15/21 albuterol sulfate 90 mcg/actuation 2 puff INH QID PRN #18 gm 02/27/21 aerosol inhaler fluticasone fur. 100 mcg-umeclid 1 inh INH DAILY #60 ea 02/27/21 62.5 mcg-vilant 25 mcg inhalat.powder ipratropium 0.5 mg-albuterol 3 mg 3 ml INH QID PRN #120 vial 02/27/21 (2.5 mg base)/3 mL nebulization soln Results & Data (ED) Vital Signs Vital Signs - 24 hr 03/01/21 15:36 03/01/21 16:32 03/01/21 17:10 Temperature 36.6 C Temperature Source Temporal Artery Scan Pulse Rate 94 H 101 H 93 H Pulse Rate [Apical] 93 H Pulse Rate from SpO2 Sensor 96 H Pulse Rhythm Regular Regular Pulse Rhythm [Apical] Regular Pulse Strength Normal Pulse Strength [Apical] Normal Respiratory Rate 18 20 22 Respiratory Effort / Characteristics Non-Labored Spontaneous Non-Labored Spontaneous Respiratory Depth Normal Normal Respiratory Pattern Regular Blood Pressure 159/92 H 155/102 H Blood Pressure [Left Arm] 168/105 H Blood Pressure Mean 114 119 Blood Pressure Mean [Left Arm] 126 Pulse Oximetry 92 97 100 Oxygen Delivery Method Room Air Room Air Sepsis Recent Fever Within 48 Hours No Sepsis New/Unexplained Change in Mental Status No Sepsis Action Taken by Nursing No Action Required 03/01/21 17:30 03/01/21 18:21 Temperature Temperature Source Pulse Rate Pulse Rate [Apical] 94 H 88 Pulse Rate from SpO2 Sensor Pulse Rhythm Pulse Rhythm [Apical] Regular Irregular Pulse Strength Pulse Strength [Apical] Normal Normal Respiratory Rate 22 20 Respiratory Effort / Characteristics Non-Labored Spontaneous Non-Labored Spontaneous Respiratory Depth Normal Normal Respiratory Pattern Blood Pressure Blood Pressure [Left Arm] 192/88 H 169/106 H Blood Pressure Mean Blood Pressure Mean [Left Arm] 122 127 Pulse Oximetry 97 100 Oxygen Delivery Method Room Air Nasal Cannula Sepsis Recent Fever Within 48 Hours Sepsis New/Unexplained Change in Mental Status Sepsis Action Taken by Nursing Laboratory Data Result diagrams: 03/01/21 16:30 03/01/21 16:30 Lab Results 03/01/21 03/01/21 03/01/21 Range/Units 16:27 16:27 16:30 WBC 13.44 H (4.8-10.8) K/uL RBC 4.41 L (4.7-6.1) M/uL Hgb 14.4 (14.0-18.0) g/dL Hct 40.4 L (42-52) % MCV 91.6 (80-100) fL MCH 32.7 (25-34) pg MCHC 35.6 (32-36) g/dL RDW Std Deviation 46.3 (36.4-46.3) fL RDW Coeff of Devi 13.8 (11.5-14.5) % Plt Count 329 (130-400) K/uL MPV 10.1 (7.4-10.4) fL Immature Gran % (Auto) 0.6 % Neut % (Auto) 75.6 % Lymph % (Auto) 11.2 % [place] % (Auto) 11.7 % Eos % (Auto) 0.7 % Baso % (Auto) 0.2 % Neut # (Auto) 10.16 H (1.4-6.5) K/uL Lymph # (Auto) 1.50 (1.2-3.4) K/uL [place] # (Auto) 1.57 H (0.11-0.59) K/uL Eos # (Auto) 0.10 (0-0.5) K/uL Baso # (Auto) 0.03 (0-0.2) K/uL Immature Gran # (Auto) 0.08 H (0.00-0.02) K/uL Sodium (136-145) mmol/L Potassium (3.5-5.1) mmol/L Chloride (98-107) mmol/L Carbon Dioxide (21-32) mmol/L Anion Gap (3-11) BUN (7-18) mg/dl Creatinine (0.6-1.4) mg/dl Est Cr Clr Drug Dosing Est GFR ( Amer) ml/min Est GFR (Non-Af Amer) ml/min BUN/Creatinine Ratio (10-20) Glucose (70-99) mg/dl Osmolality (280-300) mOsm/kg Calcium (8.5-10.1) mg/dl Magnesium (1.8-2.4) mg/dl Iron (35-175) mcg/dl Transferrin (200-360) mg/dl Transferrin % Sat (20-50) % Ferritin (8-388) ng/ml Total Bilirubin (0.2-1) mg/dl AST (15-37) U/L ALT (12-78) U/L Alkaline Phosphatase (45-117) U/L Troponin I (0-0.045) ng/ml NT-Pro-B Natriuret Pep (0-1800) pg/ml Total Protein (6.4-8.2) gm/dl Albumin (3.4-5.0) gm/dl Globulin (2.5-4.0) gm/dl Albumin/Globulin Ratio (0.9-2) TSH (0.300-4.500) uIu/ml Urine Color Urine Appearance (Clear) Urine pH (4.5-7.5) Ur Specific [place] (1.000-1.030) Urine Protein (Negative) Urine Glucose (UA) (Negative) Urine Ketones (Negative) Urine Blood (Negative) Urine Nitrite (Negative) Urine Bilirubin (Negative) Urine Urobilinogen (Negative) Ur Leukocyte Esterase (Negative) Urine WBC (Auto) (0-5) /hpf Urine RBC (Auto) (0-4) /hpf U Hyaline Cast (Auto) (0-5) /lpf U Epithel Cells (Auto) (0-5) /lpf Urine Bacteria (Auto) (Negative) Urine Osmolality (500-800) mOsm/kg Ur Random Sodium mmol/L COVID-19 Eval Order Covid19 at [facility] SARS-CoV-2 (PCR) NEGATIVE (Negative) 03/01/21 03/01/21 03/01/21 Range/Units 16:30 17:30 20:00 WBC (4.8-10.8) K/uL RBC (4.7-6.1) M/uL Hgb (14.0-18.0) g/dL Hct (42-52) % MCV (80-100) fL MCH (25-34) pg MCHC (32-36) g/dL RDW Std Deviation (36.4-46.3) fL RDW Coeff of Devi (11.5-14.5) % Plt Count (130-400) K/uL MPV (7.4-10.4) fL Immature Gran % (Auto) % Neut % (Auto) % Lymph % (Auto) % [place] % (Auto) % Eos % (Auto) % Baso % (Auto) % Neut # (Auto) (1.4-6.5) K/uL Lymph # (Auto) (1.2-3.4) K/uL [place] # (Auto) (0.11-0.59) K/uL Eos # (Auto) (0-0.5) K/uL Baso # (Auto) (0-0.2) K/uL Immature Gran # (Auto) (0.00-0.02) K/uL Sodium 124 L (136-145) mmol/L Potassium 3.8 (3.5-5.1) mmol/L Chloride 84 L (98-107) mmol/L Carbon Dioxide 29 (21-32) mmol/L Anion Gap 11.0 (3-11) BUN 34 H (7-18) mg/dl Creatinine 1.73 H (0.6-1.4) mg/dl Est Cr Clr Drug Dosing Not Reportable Est GFR ( Amer) 40.8 ml/min Est GFR (Non-Af Amer) 35.2 ml/min BUN/Creatinine Ratio 19.6 (10-20) Glucose 110 H (70-99) mg/dl Osmolality (280-300) mOsm/kg Calcium 9.6 (8.5-10.1) mg/dl Magnesium 1.5 L (1.8-2.4) mg/dl Iron (35-175) mcg/dl Transferrin (200-360) mg/dl Transferrin % Sat (20-50) % Ferritin (8-388) ng/ml Total Bilirubin 0.6 (0.2-1) mg/dl AST 19 (15-37) U/L ALT 18 (12-78) U/L Alkaline Phosphatase 83 (45-117) U/L Troponin I < 0.015 (0-0.045) ng/ml NT-Pro-B Natriuret Pep 357 (0-1800) pg/ml Total Protein 7.5 (6.4-8.2) gm/dl Albumin 3.0 L (3.4-5.0) gm/dl Globulin 4.5 H (2.5-4.0) gm/dl Albumin/Globulin Ratio 0.7 L (0.9-2) TSH 2.820 (0.300-4.500) uIu/ml Urine Color Yellow Urine Appearance Clear (Clear) Urine pH 6.5 (4.5-7.5) Ur Specific [place] 1.013 (1.000-1.030) Urine Protein 3+ H (Negative) Urine Glucose (UA) Negative (Negative) Urine Ketones Negative (Negative) Urine Blood Trace H (Negative) Urine Nitrite Negative (Negative) Urine Bilirubin Negative (Negative) Urine Urobilinogen Negative (Negative) Ur Leukocyte Esterase Negative (Negative) Urine WBC (Auto) 1-5 (0-5) /hpf Urine RBC (Auto) 0-4 (0-4) /hpf U Hyaline Cast (Auto) 1-5 (0-5) /lpf U Epithel Cells (Auto) 10-20 H (0-5) /lpf Urine Bacteria (Auto) Negative (Negative) Urine Osmolality 265 L (500-800) mOsm/kg Ur Random Sodium mmol/L COVID-19 Eval Order SARS-CoV-2 (PCR) (Negative) 03/01/21 03/01/21 03/01/21 Range/Units 20:00 20:11 20:11 WBC (4.8-10.8) K/uL RBC (4.7-6.1) M/uL Hgb (14.0-18.0) g/dL Hct (42-52) % MCV (80-100) fL MCH (25-34) pg MCHC (32-36) g/dL RDW Std Deviation (36.4-46.3) fL RDW Coeff of Devi (11.5-14.5) % Plt Count (130-400) K/uL MPV (7.4-10.4) fL Immature Gran % (Auto) % Neut % (Auto) % Lymph % (Auto) % [place] % (Auto) % Eos % (Auto) % Baso % (Auto) % Neut # (Auto) (1.4-6.5) K/uL Lymph # (Auto) (1.2-3.4) K/uL [place] # (Auto) (0.11-0.59) K/uL Eos # (Auto) (0-0.5) K/uL Baso # (Auto) (0-0.2) K/uL Immature Gran # (Auto) (0.00-0.02) K/uL Sodium (136-145) mmol/L Potassium (3.5-5.1) mmol/L Chloride (98-107) mmol/L Carbon Dioxide (21-32) mmol/L Anion Gap (3-11) BUN (7-18) mg/dl Creatinine (0.6-1.4) mg/dl Est Cr Clr Drug Dosing Est GFR ( Amer) ml/min Est GFR (Non-Af Amer) ml/min BUN/Creatinine Ratio (10-20) Glucose (70-99) mg/dl Osmolality 271 L (280-300) mOsm/kg Calcium (8.5-10.1) mg/dl Magnesium (1.8-2.4) mg/dl Iron 29 L (35-175) mcg/dl Transferrin 208 (200-360) mg/dl Transferrin % Sat 10 L (20-50) % Ferritin (8-388) ng/ml Total Bilirubin (0.2-1) mg/dl AST (15-37) U/L ALT (12-78) U/L Alkaline Phosphatase (45-117) U/L Troponin I (0-0.045) ng/ml NT-Pro-B Natriuret Pep (0-1800) pg/ml Total Protein (6.4-8.2) gm/dl Albumin (3.4-5.0) gm/dl Globulin (2.5-4.0) gm/dl Albumin/Globulin Ratio (0.9-2) TSH (0.300-4.500) uIu/ml Urine Color Urine Appearance (Clear) Urine pH (4.5-7.5) Ur Specific [place] (1.000-1.030) Urine Protein (Negative) Urine Glucose (UA) (Negative) Urine Ketones (Negative) Urine Blood (Negative) Urine Nitrite (Negative) Urine Bilirubin (Negative) Urine Urobilinogen (Negative) Ur Leukocyte Esterase (Negative) Urine WBC (Auto) (0-5) /hpf Urine RBC (Auto) (0-4) /hpf U Hyaline Cast (Auto) (0-5) /lpf U Epithel Cells (Auto) (0-5) /lpf Urine Bacteria (Auto) (Negative) Urine Osmolality (500-800) mOsm/kg Ur Random Sodium 41 mmol/L COVID-19 Eval Order SARS-CoV-2 (PCR) (Negative) 03/01/21 Range/Units 20:11 WBC (4.8-10.8) K/uL RBC (4.7-6.1) M/uL Hgb (14.0-18.0) g/dL Hct (42-52) % MCV (80-100) fL MCH (25-34) pg MCHC (32-36) g/dL RDW Std Deviation (36.4-46.3) fL RDW Coeff of Devi (11.5-14.5) % Plt Count (130-400) K/uL MPV (7.4-10.4) fL Immature Gran % (Auto) % Neut % (Auto) % Lymph % (Auto) % [place] % (Auto) % Eos % (Auto) % Baso % (Auto) % Neut # (Auto) (1.4-6.5) K/uL Lymph # (Auto) (1.2-3.4) K/uL [place] # (Auto) (0.11-0.59) K/uL Eos # (Auto) (0-0.5) K/uL Baso # (Auto) (0-0.2) K/uL Immature Gran # (Auto) (0.00-0.02) K/uL Sodium (136-145) mmol/L Potassium (3.5-5.1) mmol/L Chloride (98-107) mmol/L Carbon Dioxide (21-32) mmol/L Anion Gap (3-11) BUN (7-18) mg/dl Creatinine (0.6-1.4) mg/dl Est Cr Clr Drug Dosing Est GFR ( Amer) ml/min Est GFR (Non-Af Amer) ml/min BUN/Creatinine Ratio (10-20) Glucose (70-99) mg/dl Osmolality (280-300) mOsm/kg Calcium (8.5-10.1) mg/dl Magnesium (1.8-2.4) mg/dl Iron (35-175) mcg/dl Transferrin (200-360) mg/dl Transferrin % Sat (20-50) % Ferritin 199.2 (8-388) ng/ml Total Bilirubin (0.2-1) mg/dl AST (15-37) U/L ALT (12-78) U/L Alkaline Phosphatase (45-117) U/L Troponin I (0-0.045) ng/ml NT-Pro-B Natriuret Pep (0-1800) pg/ml Total Protein (6.4-8.2) gm/dl Albumin (3.4-5.0) gm/dl Globulin (2.5-4.0) gm/dl Albumin/Globulin Ratio (0.9-2) TSH (0.300-4.500) uIu/ml Urine Color Urine Appearance (Clear) Urine pH (4.5-7.5) Ur Specific [place] (1.000-1.030) Urine Protein (Negative) Urine Glucose (UA) (Negative) Urine Ketones (Negative) Urine Blood (Negative) Urine Nitrite (Negative) Urine Bilirubin (Negative) Urine Urobilinogen (Negative) Ur Leukocyte Esterase (Negative) Urine WBC (Auto) (0-5) /hpf Urine RBC (Auto) (0-4) /hpf U Hyaline Cast (Auto) (0-5) /lpf U Epithel Cells (Auto) (0-5) /lpf Urine Bacteria (Auto) (Negative) Urine Osmolality (500-800) mOsm/kg Ur Random Sodium mmol/L COVID-19 Eval Order SARS-CoV-2 (PCR) (Negative) Administered Medications Sodium Chloride (Nss 1000ml) 1,000 mls @ 125 mls/hr IV .Q8H STA Stop: 03/02/21 01:18 Last Admin: 03/01/21 17:27 Dose: Not Given Documented by: [id number] Discontinued Medications Sodium Chloride (Nss 1000ml) 1,000 mls @ 125 mls/hr IV .Q8H MARY Stop: 03/02/21 00:14 Last Admin: 03/01/21 17:18 Dose: 125 mls/hr Documented by: [id number] Magnesium Sulfate/Dextrose (Magnesium Sulfate / D5w) 1 gm in 100 mls @ 100 mls/hr IV Q1H MARY Stop: 03/01/21 20:59 Last Admin: 03/01/21 19:35 Dose: 100 mls/hr Documented by: [id number] Imaging Data Radiologist's Impression: Chest X-Ray 03/01/21 16:07 XR chest 1V portable CLINICAL HISTORY: Weakness COMPARISON STUDY: 09/01/2020 FINDINGS: The heart is mildly enlarged. There is aortic tortuosity/ectasia. The patient is mildly hyperinflated. There is no overt failure. There is no lobar consolidation. There are mild basilar atelectatic changes.[ IMPRESSION: Stable findings. Mild hyperinflation. No acute findings. ACT 112: Negative or not required by law. Electronically signed by: Toby Gordillo M.D. 03/01/2021 5:41 PM Abdomen/Pelvis CT 03/01/21 16:16 CT SCAN OF THE ABDOMEN AND PELVIS WITHOUT IV CONTRAST CLINICAL HISTORY: Fall. Constipation. Generalized weakness. COMPARISON STUDY: No priors. TECHNIQUE: CT scan of the abdomen and pelvis is performed from the lung bases to the proximal femora. Images are reviewed in the axial, sagittal, and coronal planes. IV contrast was not administered for this examination. Note that the examination was performed in significant suboptimal fashion without oral and IV contrast. A dose lowering technique was utilized adhering to the principles of ALARA. CT DOSE: 569.69 mGy.cm FINDINGS: Lung bases: The heart is normal in size and without pericardial effusion. The coronary arteries are densely calcified. There is trace left pleural effusion. Emphysematous change is noted at the lung bases. There is bibasilar scarring/atelectasis. Peribronchial thickening is noted in the lower lobes. There are scattered calcified granulomas. Liver: The unenhanced liver is normal in size, contour, and attenuation. There is no intrahepatic biliary ductal dilatation. Gallbladder: Unremarkable. Spleen: Normal in size and attenuation. Pancreas: The unenhanced pancreas is atrophic and grossly unremarkable. Adrenal glands: Unremarkable. Kidneys: The unenhanced kidneys demonstrate cortical atrophy and are without hydronephrosis. There are no renal calculi identified. There is no evidence of contour deforming renal mass lesion. Abdominal vasculature: There is advanced atherosclerotic calcification and mild ectasia of the abdominal aorta and iliac arteries. Bowel: There is mild to moderate colonic fecal retention. No bowel obstruction is seen. There is colonic diverticulosis without CT evidence of acute diverticulitis. The appendix is well-visualized and normal. Peritoneum: There is no intraperitoneal free air or abdominal ascites. There is a small fat-containing umbilical hernia. Lymphadenopathy: None. Pelvic viscera: The prostate gland is enlarged and heterogeneous, measuring 5.4 cm in transverse diameter. There is median lobe hypertrophy. The bladder wall appears thickened and trabeculated indicating chronic outlet obstruction. Skeletal structures: The skeletal structures are osteopenic. There is [id number] lumbosacral spondylosis. No lytic or blastic lesions are seen. IMPRESSION: 1. Suboptimal examination without oral and IV contrast. 2. There are no acute infectious or inflammatory findings in the abdomen or pelvis. 3. Emphysema and trace left pleural effusion. 4. Diffuse peribronchial thickening suggests bronchitis/reactive airway disease. Clinical correlation will be required. 5. Colonic diverticulosis without CT evidence of acute diverticulitis. 6. Mild to moderate colonic fecal retention. 7. Additional findings as above. ACT 112: Negative or not required by law. Electronically signed by: Red Matamoros M.D. 03/01/2021 5:[address] 03/01/21 16:16 CT SCAN OF THE BRAIN WITHOUT IV CONTRAST CLINICAL HISTORY: Falls. Generalized weakness. COMPARISON STUDY: No priors. TECHNIQUE: Unenhanced axial CT scan of the brain is performed from the vertex to the skull base. A dose lowering technique was utilized adhering to the principles of ALARA. The skull base was scanned twice due to motion artifact. CT DOSE: 945.80 mGy.cm FINDINGS: Brain parenchyma: There are age-related involutional changes noting moderate subcortical and periventricular microangiopathic change. There is no hemorrhage, mass effect, or evidence of acute territorial ischemia by CT criteria. Hannah- white matter differentiation is preserved. No extra-axial fluid collection is seen. A small chronic lacunar infarct is noted in the right cerebellar hemisphere. Ventricles, sulci, cisterns: Prominent secondary to involutional change. Intracranial vasculature: There is atherosclerotic calcification of the cavernous carotid and vertebral arteries. Calvarium: Unremarkable. Sinuses and mastoids: The visualized paranasal sinuses are clear. The mastoid air cells are well pneumatized. Orbits: The bony orbits are grossly intact. There are bilateral ocular lens implants. IMPRESSION: There is no hemorrhage, mass effect, or evidence of acute territorial ischemia by CT criteria. ACT 112: Negative or not required by law. Electronically signed by: Red Matamoros M.D. 03/01/2021 5:23 PM Discharge Plan Visit Data Chief Complaint: Illness Stated Complaint: NOT EATING/WEAK/SOB ED Provider: Inder Cuevas Discharge Problem: Acute hyponatremia, Weakness, Constipation, Poor appetite Forms Stand Alone Forms: My [facility] [place] [facility]It[facility] Prescriptions Prescriptions: No Action (DME) CPAP Supplies Misc See Rx Instructions .ROUTE .MEDSUPPLY Qty: 1 RF: 0 hydrochlorothiazide 25 mg tablet 25 mg PO DAILY Qty: 90 RF: 3 diltiazem HCl 120 mg capsule,extended release 24hr 240 mg PO DAILY Qty: 180 RF: 3 lisinopril 20 mg tablet 20 mg PO DAILY Qty: 90 RF: 3 finasteride 5 mg tablet 5 mg PO DAILY Qty: 90 RF: 3 levothyroxine 100 mcg tablet 100 mcg PO DAILY Qty: 90 RF: 3 (DME) CPAP Machine Misc See Dose Instructions .ROUTE .MEDSUPPLY Qty: 1 RF: 0 Trelegy Ellipta 100-62.5-25 mcg blister with device 1 inh INH DAILY Qty: 60 RF: 6 ipratropium-albuterol 0.5 mg-3 mg(2.5 mg base)/3 mL solution for nebulization 3 ml INH QID PRN (Reason: shortness of breath or wheezing) Qty: 120 RF: 2 albuterol sulfate [ProAir HFA] 90 mcg/actuation HFA aerosol inhaler 2 puff INH QID PRN (Reason: shortness of breath or wheezing) Qty: 18 RF: 3
[2021-03-01 16:44] LABS: Basophils # (auto) 0.03 K/uL (0-0.2); Basophils % (auto) 0.2 %; Eosinophils % (auto) 0.7 %; Hematocrit (blood only) 40.4 % (42-52); Hemoglobin 14.4 g/dL (14.0-18.0); Immature Granulocytes # (auto) 0.08 K/uL (0.00-0.02); Immature Granulocytes % (auto) 0.6 %; Lymphocytes % (auto) 11.2 %; Mean Corpuscular Hemoglobin 32.7 pg (25-34); Mean Corpuscular Hgb Conc 35.6 g/dL (32-36); Mean Corpuscular Volume 91.6 fL (80-100); Mean Platelet Volume 10.1 fL (7.4-10.4); Monocytes # (auto) 1.57 K/uL (0.11-0.59); Monocytes % (auto) 11.7 %; Neutrophils # (auto) 10.16 K/uL (1.4-6.5); Neutrophils % (auto) 75.6 %; Platelet Count 329 K/uL (130-400); RDW Coefficient of Variation 13.8 % (11.5-14.5); RDW Standard Deviation 46.3 fL (36.4-46.3); Red Blood Count 4.41 M/uL (4.7-6.1); White Blood Count 13.44 K/uL (4.8-10.8)
[2021-03-01 17:02] LABS: Alanine Aminotransferase 18 U/L (12-78); Aspartate Aminotransferase 19 U/L (15-37); BUN Creatinine Ratio 19.6 (10-20); Blood Urea Nitrogen 34 mg/dl (7-18); Calcium 9.6 mg/dl (8.5-10.1); Carbon Dioxide 29 mmol/L (21-32); Chloride 84 mmol/L (98-107); Est GFR (African American) 40.8 ml/min; Est GFR (Non-African American) 35.2 ml/min; Glucose 110 mg/dl (70-99); Magnesium 1.5 mg/dl (1.8-2.4); Potassium 3.8 mmol/L (3.5-5.1); Sodium 124 mmol/L (136-145)
[2021-03-01 17:13] LABS: Albumin Globulin Ratio 0.7 (0.9-2); Alkaline Phosphatase 83 U/L (45-117); Bilirubin,Total 0.6 mg/dl (0.2-1); Globulin 4.5 gm/dl (2.5-4.0); NT Pro B Type Natriuretic Pept 357 pg/ml (0-1800); Total Protein 7.5 gm/dl (6.4-8.2); Troponin I < 0.015 ng/ml (0-0.045)
[2021-03-01] MEDS ORDERED: SODIUM CHLORIDE 0.9% 1000ML 1,000 ML IV STA (17:19)
--- NOTE | 2021-03-01 17:24 | CT Scan Report ---
CT SCAN OF THE BRAIN WITHOUT IV CONTRAST CLINICAL HISTORY: Falls. Generalized weakness. COMPARISON STUDY: No priors. TECHNIQUE: Unenhanced axial CT scan of the brain is performed from the vertex to the skull base. A do se lowering technique was utilized adhering to the principles of ALARA. The skull base was scanned tw ice due to motion artifact. CT DOSE: 945.80 mGy.cm FINDINGS: Brain parenchyma: There are age-related involutional changes noting moderate subcortical and periven tricular microangiopathic change. There is no hemorrhage, mass effect, or evidence of acute territori al ischemia by CT criteria. Hannah-white matter differentiation is preserved. No extra-axial fluid zuri ection is seen. A small chronic lacunar infarct is noted in the right cerebellar hemisphere. Ventricles, sulci, cisterns: Prominent secondary to involutional change. Intracranial vasculature: There is atherosclerotic calcification of the cavernous carotid and vertebr al arteries. Calvarium: Unremarkable. Sinuses and mastoids: The visualized paranasal sinuses are clear. The mastoid air cells are well pneu matized. Orbits: The bony orbits are grossly intact. There are bilateral ocular lens implants. IMPRESSION: There is no hemorrhage, mass effect, or evidence of acute territorial ischemia by CT sanjeevt petron[place]. ACT 112: Negative or not required by law. Electronically signed by: Red Matamoros M.D. 03/01/2021 5:23 PM
--- NOTE | 2021-03-01 17:41 | CT Scan Report ---
CT SCAN OF THE ABDOMEN AND PELVIS WITHOUT IV CONTRAST CLINICAL HISTORY: Fall. Constipation. Generalized weakness. COMPARISON STUDY: No priors. TECHNIQUE: CT scan of the abdomen and pelvis is performed from the lung bases to the proximal femora. Images are reviewed in the axial, sagittal, and coronal planes. IV contrast was not administered for this examination. Note that the examination was performed in significant suboptimal fashion without oral and IV contrast. A dose lowering technique was utilized adhering to the principles of ALARA. CT DOSE: 569.69 mGy.cm FINDINGS: Lung bases: The heart is normal in size and without pericardial effusion. The coronary arteries are d ensely calcified. There is trace left pleural effusion. Emphysematous change is noted at the lung bas es. There is bibasilar scarring/atelectasis. Peribronchial thickening is noted in the lower lobes. Th ere are scattered calcified granulomas. Liver: The unenhanced liver is normal in size, contour, and attenuation. There is no intrahepatic rashawn iary ductal dilatation. Gallbladder: Unremarkable. Spleen: Normal in size and attenuation. Pancreas: The unenhanced pancreas is atrophic and grossly unremarkable. Adrenal glands: Unremarkable. Kidneys: The unenhanced kidneys demonstrate cortical atrophy and are without hydronephrosis. There ar e no renal calculi identified. There is no evidence of contour deforming renal mass lesion. Abdominal vasculature: There is advanced atherosclerotic calcification and mild ectasia of the abdomi nal aorta and iliac arteries. Bowel: There is mild to moderate colonic fecal retention. No bowel obstruction is seen. There is colo jurgen diverticulosis without CT evidence of acute diverticulitis. The appendix is well-visualized and normal. Peritoneum: There is no intraperitoneal free air or abdominal ascites. There is a small fat-containin g umbilical hernia. Lymphadenopathy: None. Pelvic viscera: The prostate gland is enlarged and heterogeneous, measuring 5.4 cm in transverse diam eter. There is median lobe hypertrophy. The bladder wall appears thickened and trabeculated indicatin g chronic outlet obstruction. Skeletal structures: The skeletal structures are osteopenic. There is mxke-lj-erdhdibr lumbosacral sp ondylosis. No lytic or blastic lesions are seen. IMPRESSION: 1. Suboptimal examination without oral and IV contrast. 2. There are no acute infectious or inflammatory findings in the abdomen or pelvis. 3. Emphysema and trace left pleural effusion. 4. Diffuse peribronchial thickening suggests bronchitis/reactive airway disease. Clinical correlation will be required. 5. Colonic diverticulosis without CT evidence of acute diverticulitis. 6. Mild to moderate colonic fecal retention. 7. Additional findings as above. ACT 112: Negative or not required by law. Electronically signed by: Red Matamoros M.D. 03/01/2021 5:39 PM
--- NOTE | 2021-03-01 17:43 | XRay Report ---
XR chest 1V portable CLINICAL HISTORY: Weakness COMPARISON STUDY: 09/01/2020 FINDINGS: The heart is mildly enlarged. There is aortic tortuosity/ectasia. The patient is mildly hyp erinflated. There is no overt failure. There is no lobar consolidation. There are mild basilar atelec tatic changes.[ IMPRESSION: Stable findings. Mild hyperinflation. No acute findings. ACT 112: Negative or not required by law. Electronically signed by: Toby Gordillo M.D. 03/01/2021 5:41 PM
[2021-03-01 18:04] LABS: Appearance Urine Clear (Clear); Bacteria Urine Automated Negative (Negative); Bilirubin Urine Negative (Negative); Blood Urine Trace (Negative); Color Urine Yellow; Glucose Urine UA Negative (Negative); Ketones Urine Negative (Negative); Leukocyte Esterase Urine Negative (Negative); Nitrite Urine Negative (Negative); Protein Urine 3+ (Negative); RBC Urine Automated 0-4 /hpf (0-4); Specific Gravity Urine 1.013 (1.000-1.030); Urobilinogen Urine Negative (Negative); pH Urine 6.5 (4.5-7.5)
--- NOTE | 2021-03-01 18:30 | History & Physical Report ---
Date of Service March 01, 2021 Assessment & Plan (1) Acute hyponatremia: Patient appears volume contracted. Poor oral intake for 2-3 weeks. Checked urine Na and urine Osm along with serum Osm - studies not c/w SIADH. Gentle hydration with serial BMPs. Use isotonic saline at 80cc/hr. Certainly his HCTZ use at home also contributed to hyponatremia. Hold the HCTZ. (2) Weakness: Likely multifactorial - hyponatremia, hypomagnesemia, and suspected other occult process. His heme+ stool, change in bowel habits, back pain, etc are all worrisome perhaps for malignancy. Correct low Na and low mag. Check iron studies and B12 level. MRI lumbar spine - rule out metastatic disease, rule out signs of multiple myeloma, etc. No obvious infectious etiology today. COVID negative. TSH wnl. (3) Constipation: Last colonoscopy was 15+ years ago - no polyps. CT abd/pelvis without colonic pathology. [id number] the change in bowel habits and heme+ stool are quite concerning. For constipation - miralax BID + senna 2 tabs daily. Heme+ stool -> see below. (4) Heme positive stool: see "constipation" above. check Fe studies. poor endoscopic evaluation candidate due to O2-dependent COPD. H/H are acceptable today. If iron is low consider IV venofer. (5) Lumbar back pain: MRI lumbar spine - r/o occult malignancy, multiple myeloma, etc. For pain - tylenol 1gm TID. Voltaren gel qid. (6) Hypothyroidism: TSH 2.8 today. Cont synthroid. (7) BPH (benign prostatic hyperplasia): Despite finasteride usage he has LUTS with considerable enlargement on exam today. Start alpha mirta. U/a not suggestive of UTI. No prostatitis on exam. (8) COPD (chronic obstructive pulmonary disease): severe, on home O2. continue home inhalers. no exacerbation at this time. (9) Obstructive sleep apnea of adult: CPAP 8cm H20. (10) Hypertension: uncontrolled. due to lumbar back pain? cont diltiazem. cont lisinopril. poor beta mirta candidate due to COPD. hold HCTZ due to low Na. adding alpha mirta for BPH which will help BP as well. (11) Chronic respiratory failure with hypoxia: on NC O2 continuously, 3 liters. stable. 2nd COPD. (12) Hypomagnesemia: replace with 2 grams mag sulfate. repeat mag level am. (13) Controlled type 2 diabetes mellitus with chronic kidney disease: last a1c was 6.2% in 12/13/20. c/w diet-controlled T2DM. BSGs ac/hs and DM diet. likely won't need any Rx. (14) Proteinuria: 3+ on u/a today. HTN nephrosclerosis? other? (15) DVT prophylaxis: SCDs for now if H/H remain stable then introduce chemical DVT proph will need PT, OT due to severe weakness extensively updated at bedside History of Present Illness Chief Complaint: poor eating, not feeling well Primary Care Provider: Kt Valerio MD 85yo male with history of COPD with o2 dependency, 3 L NC continuously, BPH, and HTN presents with weakness for about 1-2 weeks, constipation troubles for 2-3 weeks (has had constipation for many years but much worse recently), anorexia for 2 weeks, fall yesterday at home due to weakness (no injury, no loss of consciousness), and low back pain. Denies any fevers, chills, nightsweats, or weight loss. Eyes have been irritated for a few weeks but was recently started on eye drops b/l for glaucoma. Denies sore throat. Denies loss of taste or smell. No vomiting. No dysuria. No rash. No obvious tick bites. No travel. No sick contacts. C/o lumbar back pain starting about 3 weeks ago. Denies leg paresthesias. C/o difficulty rising from a chair. He is not someone to have back pain. The pain is nearly constant and nagging. Allergies Allergy/AdvReac Type Severity Reaction Status Date / Time No Known Allergies Allergy Verified 03/01/21 16:22 Home Medications Medication Instructions Recorded Confirmed Type CPAP Machine #1 ea 06/14/19 03/01/21 Rx miscellaneous medical supply #1 ea 03/28/20 03/01/21 Rx hydrochlorothiazide 25 mg tablet 25 mg PO DAILY #90 tab 07/20/20 03/01/21 Rx diltiazem HCl 120 mg 240 mg PO DAILY #180 cap 07/25/20 03/01/21 Rx capsule,extended release 24 hr lisinopril 20 mg tablet 20 mg PO DAILY #90 tab 10/24/20 03/01/21 Rx finasteride 5 mg tablet 5 mg PO DAILY #90 tab 12/12/20 03/01/21 Rx levothyroxine 100 mcg tablet 100 mcg PO DAILY #90 tab 02/15/21 03/01/21 Rx albuterol sulfate 90 mcg/actuation 2 puff INH QID PRN #18 gm 02/27/21 03/01/21 Rx aerosol inhaler fluticasone fur. 100 mcg-umeclid 1 inh INH DAILY #60 ea 02/27/21 03/01/21 Rx 62.5 mcg-vilant 25 mcg inhalat.powder ipratropium 0.5 mg-albuterol 3 mg 3 ml INH QID PRN #120 vial 02/27/21 03/01/21 Rx (2.5 mg base)/3 mL nebulization soln Past Med/Surg History Medical History (Updated 03/01/21 @ 23:30 by Jeff Prado) Chronic respiratory failure with hypoxia 3 L NC O2 continuously Controlled type 2 diabetes mellitus with chronic kidney disease COPD (chronic obstructive pulmonary disease) Diverticulosis Epistaxis Hyperlipidemia Hypertension Hypothyroidism Obstructive sleep apnea of adult Pneumonia Surgical History (Updated 03/01/21 @ 18:58 by Jeff Prado) H/O cataract extraction H/O colonoscopy Family History (Updated 03/01/21 @ 19:06 by Jeff Prado) Father COPD (chronic obstructive pulmonary disease) Mother Hypertension Brother Dementia Daughter Breast cancer Other Heart disease Denies family history of Ovarian cancer Prostate cancer Myocardial infarction Colorectal cancer Social History (Updated 03/01/21 @ 19:04 by Jeff Prado) Smoking Status: Former smoker Age Started Using Tobacco: 16; Age Quit Using Tobacco: 40; packs per day: 1; Years Smoked: 25; Second Hand Exposure: Yes; Do You Dip or Chew Tobacco: No; Hx Alcohol Use: No Hx Substance Use: No Preferred Language: Italian Communication Ability: Effective Hearing Ability: Normal Shop Supervisor Required: No Beliefs That Will Affect Care: None marital status: Current Living Situation: Spouse Current Living Situation Comment: [employer] current occupational status: retired How many Children do You have: 2 Other Information That Helps Us Care for You: No other: Partly Joyce Feels Safe at Home: Yes Safety Concerns: Feels Safe At This Time Dental Care, Regularly: Yes Physical Activity Frequency: Does not Exercise Seatbelt Use: always Sunscreen Use: No Assistive Devices: Denture - Upper and Denture - Lower Assistive Devices Comment: Partial dentures Review of Systems Constitutional: + fatigue, + weakness and + anorexia; no fever, no chills, no sweats, no body aches and no weight loss Eyes: as per Subjective / HPI Ear, Nose, Mouth, Throat: no sore throat and no dysphagia Respiratory: + dyspnea on exertion and + wheezing; no cough Cardiovascular: + dyspnea on exertion and + edema; no chest pain and no orthopnea Gastrointestinal: + bloating, + early satiety and + constipation; no abdominal pain, no vomiting, no blood in stools and no melena Genitourinary: + nocturia (q2-q3h); no dysuria Musculoskeletal: + back pain and + muscle weakness Integumentary: no rash Neurologic: + generalized weakness; no localized weakness and no paresthesia Psychiatric: + abnormal sleep pattern; no depression Endocrine: + fatigue and + polyuria Hematologic / Lymphatic: no easy bruising Physical Exam Constitutional: + acute distress (with any movement in the bed he develops audible wheezing w/ tachypnea ), + ill appearing and + frail appearing; no altered mental status Eyes: + conjunctival abnormality (erythema, irritation ) and PERRL ENMT: external ear and nose normal, oropharynx normal Neck: trachea midline, no thyromegaly Respiratory: + tachypneic (intermittent ) Auscultation: + wheezes (diffuse b/l ) Cardiovascular: Rate/Rhythm: regular rhythm (with extra beats) and + tachycardic Heart Sounds: normal S1 and normal S2; no murmur Vessels: posterior tibial pulses present and dorsalis pedis pulses present; no JVD Extremities: + edema (1+ b/l, and RLE is larger than LLE) Gastrointestinal (Abdomen): Inspection/Auscultation: + abdomen distended and normal bowel sounds Percussion/Palpation: abdomen nontender, no guarding and no hepatosplenomegaly Rectal Exam: + heme positive stool (entire card ); no rectal mass and no fecal impaction prostate - enlarged, not boggy, not tender. Firmness left upper lobe (possible nodule). Musculoskeletal: Spine: + paraspinal tenderness (lumbar region ); no thoracic spinal tenderness and no lumbar spinal tenderness Extremities: strength 5/5 throughout and + clubbing Skin: no rashes, warm and dry Neurologic: deep tendon reflexes 2+ bilaterally and moves all extremities Psychiatric: Orientation: alert and oriented x 3 Affect: + flat affect Lymphatic: no cervical lymphadenopathy Results & Data Results & Data ([facility]) Vital Signs (Past 12 Hours) Vital Signs Temp Pulse Pulse Resp BP BP Pulse Ox 03/01/21 18:21 88 20 169/106 H 100 03/01/21 17:30 94 H 22 192/88 H 97 03/01/21 17:10 93 H 93 H 22 168/105 H 100 03/01/21 16:32 101 H 20 155/102 H 97 03/01/21 15:36 36.6 C 94 H 18 159/92 H 92 Laboratory Results Labs 03/01/21 03/01/21 03/01/21 16:27 16:27 16:30 WBC 13.44 H RBC 4.41 L Hgb 14.4 Hct 40.4 L MCV 91.6 MCH 32.7 MCHC 35.6 RDW Std Deviation 46.3 RDW Coeff of Devi 13.8 Plt Count 329 MPV 10.1 Immature Gran % (Auto) 0.6 Neut % (Auto) 75.6 Lymph % (Auto) 11.2 Shannon % (Auto) 11.7 Eos % (Auto) 0.7 Baso % (Auto) 0.2 Neut # (Auto) 10.16 H Lymph # (Auto) 1.50 Shannon # (Auto) 1.57 H Eos # (Auto) 0.10 Baso # (Auto) 0.03 Immature Gran # (Auto) 0.08 H Sodium Potassium Chloride Carbon Dioxide Anion Gap BUN Creatinine Est Cr Clr Drug Dosing Est GFR ( Amer) Est GFR (Non-Af Amer) BUN/Creatinine Ratio Glucose Osmolality Calcium Magnesium Iron Transferrin Transferrin % Sat Ferritin Total Bilirubin AST ALT Alkaline Phosphatase Troponin I NT-Pro-B Natriuret Pep Total Protein Albumin Globulin Albumin/Globulin Ratio Vitamin B12 TSH Urine Color Urine Appearance Urine pH Ur Specific [place] Urine Protein Urine Glucose (UA) Urine Ketones Urine Blood Urine Nitrite Urine Bilirubin Urine Urobilinogen Ur Leukocyte Esterase Urine WBC (Auto) Urine RBC (Auto) U Hyaline Cast (Auto) U Epithel Cells (Auto) Urine Bacteria (Auto) Urine Osmolality Ur Random Sodium COVID-19 Eval Order Covid19 at [facility] SARS-CoV-2 (PCR) NEGATIVE 03/01/21 03/01/21 03/01/21 16:30 17:30 20:00 WBC RBC Hgb Hct MCV MCH MCHC RDW Std Deviation RDW Coeff of Devi Plt Count MPV Immature Gran % (Auto) Neut % (Auto) Lymph % (Auto) Shannon % (Auto) Eos % (Auto) Baso % (Auto) Neut # (Auto) Lymph # (Auto) Shannon # (Auto) Eos # (Auto) Baso # (Auto) Immature Gran # (Auto) Sodium 124 L Potassium 3.8 Chloride 84 L Carbon Dioxide 29 Anion Gap 11.0 BUN 34 H Creatinine 1.73 H Est Cr Clr Drug Dosing Not Reportable Est GFR ( Amer) 40.8 Est GFR (Non-Af Amer) 35.2 BUN/Creatinine Ratio 19.6 Glucose 110 H Osmolality Calcium 9.6 Magnesium 1.5 L Iron Transferrin Transferrin % Sat Ferritin Total Bilirubin 0.6 AST 19 ALT 18 Alkaline Phosphatase 83 Troponin I < 0.015 NT-Pro-B Natriuret Pep 357 Total Protein 7.5 Albumin 3.0 L Globulin 4.5 H Albumin/Globulin Ratio 0.7 L Vitamin B12 TSH 2.820 Urine Color Yellow Urine Appearance Clear Urine pH 6.5 Ur Specific [place] 1.013 Urine Protein 3+ H Urine Glucose (UA) Negative Urine Ketones Negative Urine Blood Trace H Urine Nitrite Negative Urine Bilirubin Negative Urine Urobilinogen Negative Ur Leukocyte Esterase Negative Urine WBC (Auto) 1-5 Urine RBC (Auto) 0-4 U Hyaline Cast (Auto) 1-5 U Epithel Cells (Auto) 10-20 H Urine Bacteria (Auto) Negative Urine Osmolality 265 L Ur Random Sodium COVID-19 Eval Order SARS-CoV-2 (PCR) 03/01/21 03/01/21 03/01/21 20:00 20:11 20:11 WBC RBC Hgb Hct MCV MCH MCHC RDW Std Deviation RDW Coeff of Devi Plt Count MPV Immature Gran % (Auto) Neut % (Auto) Lymph % (Auto) Shannon % (Auto) Eos % (Auto) Baso % (Auto) Neut # (Auto) Lymph # (Auto) Shannon # (Auto) Eos # (Auto) Baso # (Auto) Immature Gran # (Auto) Sodium Potassium Chloride Carbon Dioxide Anion Gap BUN Creatinine Est Cr Clr Drug Dosing Est GFR ( Amer) Est GFR (Non-Af Amer) BUN/Creatinine Ratio Glucose Osmolality Calcium Magnesium Iron 29 L Transferrin 208 Transferrin % Sat 10 L Ferritin Total Bilirubin AST ALT Alkaline Phosphatase Troponin I NT-Pro-B Natriuret Pep Total Protein Albumin Globulin Albumin/Globulin Ratio Vitamin B12 274 TSH Urine Color Urine Appearance Urine pH Ur Specific [place] Urine Protein Urine Glucose (UA) Urine Ketones Urine Blood Urine Nitrite Urine Bilirubin Urine Urobilinogen Ur Leukocyte Esterase Urine WBC (Auto) Urine RBC (Auto) U Hyaline Cast (Auto) U Epithel Cells (Auto) Urine Bacteria (Auto) Urine Osmolality Ur Random Sodium 41 COVID-19 Eval Order SARS-CoV-2 (PCR) 03/01/21 03/01/21 20:11 20:11 WBC RBC Hgb Hct MCV MCH MCHC RDW Std Deviation RDW Coeff of Devi Plt Count MPV Immature Gran % (Auto) Neut % (Auto) Lymph % (Auto) Shannon % (Auto) Eos % (Auto) Baso % (Auto) Neut # (Auto) Lymph # (Auto) Shannon # (Auto) Eos # (Auto) Baso # (Auto) Immature Gran # (Auto) Sodium Potassium Chloride Carbon Dioxide Anion Gap BUN Creatinine Est Cr Clr Drug Dosing Est GFR ( Amer) Est GFR (Non-Af Amer) BUN/Creatinine Ratio Glucose Osmolality 271 L Calcium Magnesium Iron Transferrin Transferrin % Sat Ferritin 199.2 Total Bilirubin AST ALT Alkaline Phosphatase Troponin I NT-Pro-B Natriuret Pep Total Protein Albumin Globulin Albumin/Globulin Ratio Vitamin B12 TSH Urine Color Urine Appearance Urine pH Ur Specific [place] Urine Protein Urine Glucose (UA) Urine Ketones Urine Blood Urine Nitrite Urine Bilirubin Urine Urobilinogen Ur Leukocyte Esterase Urine WBC (Auto) Urine RBC (Auto) U Hyaline Cast (Auto) U Epithel Cells (Auto) Urine Bacteria (Auto) Urine Osmolality Ur Random Sodium COVID-19 Eval Order SARS-CoV-2 (PCR) Diagnostic Findings Chest X-Ray 03/01/21 16:07 XR chest 1V portable CLINICAL HISTORY: Weakness COMPARISON STUDY: 09/01/2020 FINDINGS: The heart is mildly enlarged. There is aortic tortuosity/ectasia. The patient is mildly hyperinflated. There is no overt failure. There is no lobar consolidation. There are mild basilar atelectatic changes.[ IMPRESSION: Stable findings. Mild hyperinflation. No acute findings. ACT 112: Negative or not required by law. Electronically signed by: Toby Gordillo M.D. 03/01/2021 5:41 PM Abdomen/Pelvis CT 03/01/21 16:16 CT SCAN OF THE ABDOMEN AND PELVIS WITHOUT IV CONTRAST CLINICAL HISTORY: Fall. Constipation. Generalized weakness. COMPARISON STUDY: No priors. TECHNIQUE: CT scan of the abdomen and pelvis is performed from the lung bases to the proximal femora. Images are reviewed in the axial, sagittal, and coronal planes. IV contrast was not administered for this examination. Note that the examination was performed in significant suboptimal fashion without oral and IV contrast. A dose lowering technique was utilized adhering to the principles of ALARA. CT DOSE: 569.69 mGy.cm FINDINGS: Lung bases: The heart is normal in size and without pericardial effusion. The coronary arteries are densely calcified. There is trace left pleural effusion. Emphysematous change is noted at the lung bases. There is bibasilar scarring/atelectasis. Peribronchial thickening is noted in the lower lobes. There are scattered calcified granulomas. Liver: The unenhanced liver is normal in size, contour, and attenuation. There is no intrahepatic biliary ductal dilatation. Gallbladder: Unremarkable. Spleen: Normal in size and attenuation. Pancreas: The unenhanced pancreas is atrophic and grossly unremarkable. Adrenal glands: Unremarkable. Kidneys: The unenhanced kidneys demonstrate cortical atrophy and are without hydronephrosis. There are no renal calculi identified. There is no evidence of contour deforming renal mass lesion. Abdominal vasculature: There is advanced atherosclerotic calcification and mild ectasia of the abdominal aorta and iliac arteries. Bowel: There is mild to moderate colonic fecal retention. No bowel obstruction is seen. There is colonic diverticulosis without CT evidence of acute diverticulitis. The appendix is well-visualized and normal. Peritoneum: There is no intraperitoneal free air or abdominal ascites. There is a small fat-containing umbilical hernia. Lymphadenopathy: None. Pelvic viscera: The prostate gland is enlarged and heterogeneous, measuring 5.4 cm in transverse diameter. There is median lobe hypertrophy. The bladder wall appears thickened and trabeculated indicating chronic outlet obstruction. Skeletal structures: The skeletal structures are osteopenic. There is [id number] lumbosacral spondylosis. No lytic or blastic lesions are seen. IMPRESSION: 1. Suboptimal examination without oral and IV contrast. 2. There are no acute infectious or inflammatory findings in the abdomen or pelvis. 3. Emphysema and trace left pleural effusion. 4. Diffuse peribronchial thickening suggests bronchitis/reactive airway disease. Clinical correlation will be required. 5. Colonic diverticulosis without CT evidence of acute diverticulitis. 6. Mild to moderate colonic fecal retention. 7. Additional findings as above. ACT 112: Negative or not required by law. Electronically signed by: Red Matamoros M.D. 03/01/2021 5:[address] 03/01/21 16:16 CT SCAN OF THE BRAIN WITHOUT IV CONTRAST CLINICAL HISTORY: Falls. Generalized weakness. COMPARISON STUDY: No priors. TECHNIQUE: Unenhanced axial CT scan of the brain is performed from the vertex to the skull base. A dose lowering technique was utilized adhering to the principles of ALARA. The skull base was scanned twice due to motion artifact. CT DOSE: 945.80 mGy.cm FINDINGS: Brain parenchyma: There are age-related involutional changes noting moderate subcortical and periventricular microangiopathic change. There is no hemorrhage, mass effect, or evidence of acute territorial ischemia by CT criteria. Hannah- white matter differentiation is preserved. No extra-axial fluid collection is seen. A small chronic lacunar infarct is noted in the right cerebellar hemisphere. Ventricles, sulci, cisterns: Prominent secondary to involutional change. Intracranial vasculature: There is atherosclerotic calcification of the cavernous carotid and vertebral arteries. Calvarium: Unremarkable. Sinuses and mastoids: The visualized paranasal sinuses are clear. The mastoid air cells are well pneumatized. Orbits: The bony orbits are grossly intact. There are bilateral ocular lens implants. IMPRESSION: There is no hemorrhage, mass effect, or evidence of acute ra torial ischemia by CT criteria. ACT 112: Negative or not required by law. Electronically signed by: Red Matamoros M.D. 03/01/2021 5:23 PM Venous Doppler Study 03/01/21 19:45 US venous doppler LE RT CLINICAL HISTORY: right leg larger than left leg; eval DVT COMPARISON STUDY: No previous studies for comparison. FINDINGS: Real-time and color flow Doppler imaging were performed. Flow was seen within the femoral, popliteal and calf veins with no intraluminal thrombus demonstrated. The saphenous vein is patent. IMPRESSION: No evidence of deep venous thrombosis. ACT 112: Negative or not required by law. The above report was generated using voice recognition software. It may contain grammatical, syntax or spelling errors. Electronically signed by: Iva Jin DO 03/01/2021 9:27 PM EKG - my reading - sinus tach, PACs, early repol/minor j-point elevation III, AVF; no ST changes otherwise Code Status & VTE Plan Code Status full VTE Prophylaxis Plan VTE Prophylaxis will be ordered: Yes PG Care Time/CCT Total # of Minutes Spent Total Time Spent with Patient: Total time spent is greater than 50% in coordination of care (as documented) at patient's floor/unit and/or counseling patient: Coding Level of Care Code 57738 Initial Inpt Care Lvl 3 Diagnoses Acute hyponatremia E87.1 Weakness R53.1 Constipation K59.00 Heme positive stool R19.5 Lumbar back pain M54.5 Hypothyroidism E03.9 BPH (benign prostatic hyperplasia) N40.0 COPD (chronic obstructive pulmonary disease) J44.9 Obstructive sleep apnea of adult G47.33 Hypertension I10 Chronic respiratory failure with hypoxia J96.11 Hypomagnesemia E83.42 Controlled type 2 diabetes mellitus with chronic kidney disease E11.22 Proteinuria R80.9 DVT prophylaxis Z29.9
[2021-03-01] MEDS: MAGNESIUM SULFATE / D5W 1 GM/100 ML BAG IV SCH (19:35)
[2021-03-01 20:43] LABS: Iron 29 mcg/dl (35-175); Transferrin 208 mg/dl (200-360); Transferrin (FE) Percent Satur 10 % (20-50)
--- NOTE | 2021-03-01 21:28 | Ultrasound Report ---
US venous doppler LE RT CLINICAL HISTORY: right leg larger than left leg; eval DVT COMPARISON STUDY: No previous studies for comparison. FINDINGS: Real-time and color flow Doppler imaging were performed. Flow was seen within the femoral, popliteal and calf veins with no intraluminal thrombus demonstrated. The saphenous vein is patent. IMPRESSION: No evidence of deep venous thrombosis. ACT 112: Negative or not required by law. The above report was generated using voice recognition software. It may contain grammatical, syntax o r spelling errors. Electronically signed by: Iva Jin DO 03/01/2021 9:27 PM
[2021-03-01] MEDS ORDERED: NITROGLYCERIN SL 0.4 MG/TAB TAB SL PRN (22:34)
[2021-03-01] MEDS ORDERED: ONDANSETRON INJ 2 MG/ML 2 ML VIAL IV PRN (22:34)
[2021-03-01] MEDS ORDERED: ALBUT/IPRATROP 3MG/0.5MG NEB 3 ML VIAL INH PRN (22:34)
[2021-03-01] MEDS ORDERED: ALBUTEROL HFA 8 GM INHALER INH PRN (22:34)
[2021-03-01] MEDS: SODIUM CHLORIDE 0.9% 1000ML 1,000 ML IV SCH (23:22)
[2021-03-01] MEDS: ACETAMINOPHEN 500 MG TAB PO SCH (23:22)
[2021-03-01] MEDS: POLYETHYLENE (MIRALAX) 17 GM PACK PO SCH (23:23)
[2021-03-01] MEDS: DICLOFENAC SOD 1% GEL 100 GM TUBE EXT SCH (23:54)
[2021-03-01] MEDS: DOXAZosin MESYLATE TAB 2 MG TAB PO SCH (23:55)
[2021-03-02] MEDS ORDERED: traMADol HCL 50 MG TABLET PO STA (03:40)
[2021-03-02] MEDS: MAGNESIUM SULFATE / D5W 1 GM/100 ML BAG IV SCH (04:04)
[2021-03-02] MEDS ORDERED: METOPROLOL TARTRATE 1 MG/ML VIAL IV STA (04:22)
[2021-03-02] MEDS: LEVOTHYROXINE SODIUM 100 MCG TABLET PO SCH (06:06)
[2021-03-02 07:18] LABS: Hematocrit (blood only) 34.1 % (42-52); Hemoglobin 12.3 g/dL (14.0-18.0)
[2021-03-02 07:35] LABS: BUN Creatinine Ratio 20.8 (10-20); Calcium 8.8 mg/dl (8.5-10.1); Creatinine Clr Calc Pharmacy 39.1 ml/min; Est GFR (African American) 53.2 ml/min; Est GFR (Non-African American) 45.9 ml/min; Magnesium 2.1 mg/dl (1.8-2.4); Potassium 3.3 mmol/L (3.5-5.1)
[2021-03-02] MEDS: dilTIAZem HCL 240 MG CAPCR PO SCH (08:04)
[2021-03-02] MEDS: CEROVITE ADV FORMULA TAB PO SCH (08:05)
[2021-03-02] MEDS: POLYETHYLENE (MIRALAX) 17 GM PACK PO SCH ×2 (08:05→19:37)
[2021-03-02] MEDS: FLUTICASONE FUROATE 100MCG 14 PUFFS/INHALER INH SCH (08:05)
[2021-03-02] MEDS: lisinopril 20 MG TAB PO SCH (08:05)
[2021-03-02] MEDS: CYANOCOBALAMIN 500 MCG TABLET (VITAMIN B-12) PO SCH (08:05)
[2021-03-02] MEDS: FINASTERIDE 5 MG TAB PO SCH (08:05)
[2021-03-02] MEDS: SENNA 8.6 MG TAB PO SCH (08:05)
[2021-03-02] MEDS: UMECLIDINIUM/VILANTEROL 62.5/25MCG 7 PUFFS/INHALER INH SCH (08:06)
[2021-03-02] MEDS: DICLOFENAC SOD 1% GEL 100 GM TUBE EXT SCH ×5 (08:06→19:38)
[2021-03-02] MEDS: ACETAMINOPHEN 500 MG TAB PO SCH ×3 (08:07→19:37)
--- NOTE | 2021-03-02 08:53 | Magnetic Resonance Report ---
MRI OF THE LUMBAR SPINE WITHOUT CONTRAST CLINICAL HISTORY: back pain; eval for spinal mets, etc COMPARISON STUDY: Lumbar spine radiographs February 22, 2021. TECHNIQUE: Utilizing a 1.5 Prema magnet and dedicated coil, multiplanar, multiecho imaging of the [facility] spine was performed without IV contrast. FINDINGS: For purposes of numbering on this exam, the L5-S1 disc space is assigned to axial image 27 of 30. Ali gnment of the lumbar spine is anatomic. Vertebral body heights are maintained. There is no fracture. Discogenic changes at the L4-L5 level are noted. There is no intracanalicular mass or fluid collectio n. The conus terminates at the lower L1 level. Paravertebral soft tissues are unremarkable. There is no suspicious marrow replacement. L1-2: The central canal and neural foramen are patent. L2-3: There is mild disc space narrowing with minimal disc bulge and facet arthrosis. Central canal i s patent. Neural foramen are patent. L3-4: There is mild disc space narrowing. There is facet arthrosis. Central canal is patent. There is mild bilateral neural foraminal stenosis. L4-5: Moderate disc space narrowing is noted with disc bulge and facet arthrosis. There is mild narro wing of the central canal and lateral recesses with mild to moderate bilateral neural foraminal steno sis. L5-S1: Facet arthrosis is present. There is mild disc bulge. Central canal is patent. Mild to moderat e bilateral neural foraminal stenosis is present. IMPRESSION: 1. No acute process within the lumbar spine. No fracture. No suspicious marrow replacement. 2. Multilevel degenerative disc disease and facet arthrosis within the lumbar spine. No severe centra l canal stenosis. Mild central canal narrowing at L4-L5. Mild to moderate multilevel neural foraminal narrowing as detailed above. ACT 112: Negative or not required by law. Electronically signed by: Matias Natarajan M.D. 03/02/2021 8:52 AM
[2021-03-02] MEDS ORDERED: NON-FORMULARY MEDICATION (Fluticasone-Umeclidin-Vilanter [Trelegy Ellipta] 100-62.5-25 mcg INH SCH ×2 (09:00→16:00)
[2021-03-02] MEDS: SODIUM CHLORIDE 0.9% 1000ML 1,000 ML IV SCH (10:08)
--- NOTE | 2021-03-02 11:27 | Nephrology Consultation ---
Date of Consultation March 02, 2021 Assessment & Plan (1) Acute hyponatremia: 85 yom with underlying stage IIIB CKD, admitted with generalized electrolyte abnormality, weakness, anorexia going on for weeks to months. Sodium was 124, stayed relatively stable after 3 L of IV normal saline, urine osmolality appropriately low. Hyponatremia probably multifactorial including poor solute intake, pain, NSAIDs and hydrochlorothiazide. Workup so far nonrevealing. Sodium did not improve with normal saline. --discontinue IV fluid, encourage increase protein intake, replace potassium and repeat sodium in the afternoon --check SPEP, UPEP, PSA --avoid hydrochlorothiazide in future, currently blood pressure well controlled, no sign of volume overload. If diuretics needed, could consider loop diuretics. Avoid NSAIDs. Continue lisinopril Will follow Thank you for allowing me to participate in your patient's care. It was a pleasure to see Mr. Wiggins (2) Weakness: (3) Hypomagnesemia: (4) Proteinuria: (5) Hypokalemia: History of Present Illness Reason for Consultation: Hyponatremia, CKD Attending Physician: Neeraj Blackwood History of Present Illness Mr. Jose Alejandro Wiggins is a 85yoM with PMH of Stage 3b CKD, COPD on 4 L NC O2 at home, BPH, and HTN admitted with generalized weakness and hyponatremia. Nephrology consult was requested to manage hyponatremia and other electrolyte abnormality. EMR records are reviewed in detail during patient's visit. Mr. Blount reports progressive decline in his health over last 2 years, which worsened further over last 2-3 weeks with generalized weakness, anorexia, fall at home. He was admitted to the hospital after outpatient lab showed sodium 124. Was also found to have hypomagnesemia ( 1.5) and hypokalemia, currently getting replaced. Has history of chronic hyponatremia, serum sodium lowest previously was at 130 in 2018. Has been on hydrochlorothiazide 25 mg at home. He received 2 L of IV normal saline and currently normal saline at 100 mL/hour however her sodium stayed relatively stable at 125 this morning. Urine osmolality appropriately low at 265. Workup including chest x-ray, CT abdomen pelvis was unremarkable. CT head was negative. Had MRI of lumbar spine showing no significant abnormality. TSH was normal. He reports having poor p.o. intake and anorexia for weeks to even months however weight has been relatively stable. He also has been having low back pain and has been taking ibuprofen regularly. No nausea, vomiting, abdominal pain or diarrhea. In fact has been having constipation at home. History of smoking for almost 25 years, quit more than 40 years ago. Has been retired for last 2 years. , lives with his spouse. No family history of CKD, ESRD. Stage III B CKD possibly secondary to microvascular disease with history of hypertension and smoking, baseline creatinine has been around 1.6-1.7. On admission creatinine 1.4. Urinalysis showed 3+ proteinuria and microscopic hematuria. CT showed otherwise normal kidney with no hydronephrosis. He continues to feel weak in his legs and have back pain. Appetite slightly better this morning and he had breakfast. Allergies Allergy/AdvReac Type Severity Reaction Status Date / Time No Known Allergies Allergy Verified 03/01/21 16:22 Home Medications Medication Instructions Recorded Confirmed Type CPAP Machine #1 ea 06/14/19 03/01/21 Rx miscellaneous medical supply #1 ea 03/28/20 03/01/21 Rx hydrochlorothiazide 25 mg tablet 25 mg PO DAILY #90 tab 07/20/20 03/01/21 Rx diltiazem HCl 120 mg 240 mg PO DAILY #180 cap 07/25/20 03/01/21 Rx capsule,extended release 24 hr lisinopril 20 mg tablet 20 mg PO DAILY #90 tab 10/24/20 03/01/21 Rx finasteride 5 mg tablet 5 mg PO DAILY #90 tab 12/12/20 03/01/21 Rx levothyroxine 100 mcg tablet 100 mcg PO DAILY #90 tab 02/15/21 03/01/21 Rx albuterol sulfate 90 mcg/actuation 2 puff INH QID PRN #18 gm 02/27/21 03/01/21 Rx aerosol inhaler fluticasone fur. 100 mcg-umeclid 1 inh INH DAILY #60 ea 02/27/21 03/01/21 Rx 62.5 mcg-vilant 25 mcg inhalat.powder ipratropium 0.5 mg-albuterol 3 mg 3 ml INH QID PRN #120 vial 02/27/21 03/01/21 Rx (2.5 mg base)/3 mL nebulization soln Patient History Medical History (Updated 03/02/21 @ 11:27 by Kathya Capone MD) Chronic respiratory failure with hypoxia 3 L NC O2 continuously Controlled type 2 diabetes mellitus with chronic kidney disease COPD (chronic obstructive pulmonary disease) Diverticulosis Epistaxis Hyperlipidemia Hypertension Hypokalemia Hypothyroidism Obstructive sleep apnea of adult Pneumonia Surgical History (Updated 03/01/21 @ 18:58 by Jeff Prado) H/O cataract extraction H/O colonoscopy Family History (Updated 03/01/21 @ 19:06 by Jeff Prado) Father COPD (chronic obstructive pulmonary disease) Mother Hypertension Brother Dementia Daughter Breast cancer Other Heart disease Denies family history of Ovarian cancer Prostate cancer Myocardial infarction Colorectal cancer Social History (Updated 03/01/21 @ 19:04 by Jeff Prado) Smoking Status: Former smoker Age Started Using Tobacco: 16; Age Quit Using Tobacco: 40; packs per day: 1; Years Smoked: 25; Second Hand Exposure: Yes; Do You Dip or Chew Tobacco: No; Hx Alcohol Use: No Hx Substance Use: No Preferred Language: Turkish Communication Ability: Effective Hearing Ability: Normal Neuropsychologist Required: No Beliefs That Will Affect Care: None marital status: Current Living Situation: Spouse Current Living Situation Comment: [place] current occupational status: retired How many Children do You have: 2 Other Information That Helps Us Care for You: No other: [employer] Joyce Feels Safe at Home: Yes Safety Concerns: Feels Safe At This Time Dental Care, Regularly: Yes Physical Activity Frequency: Does not Exercise Seatbelt Use: always Sunscreen Use: No Assistive Devices: None Assistive Devices Comment: Partial dentures Review of Systems Review of Systems: All systems reviewed & are unremarkable except as noted in Subjective Physical Exam Constitutional: WD/WN, vitals as above no acute distress Eyes: + anicteric sclerae ENMT: Ears: no hearing impairment Neck: normal visual inspection and trachea midline Respiratory: normal respiratory effort; no respiratory distress and no cough Auscultation: no crackles, no rales and no wheezes Cardiovascular: RRR, no murmur, no edema Gastrointestinal (Abdomen): normal bowel sounds, soft, nontender, no hepatosplenomegaly Percussion/Palpation: abdomen nontender, no guarding and abdomen not rigid Musculoskeletal: Extremities: extremities normal to inspection Gait: normal gait Skin: no rashes, warm and dry Neurologic: moves all extremities and awake; no focal motor deficits and not confused Psychiatric: A+Ox3, euthymic affect Results & Data ([facility]) Vital Signs (Past 12 Hours) Vital Signs Temp Pulse Pulse Resp BP BP Pulse Ox 03/02/21 11:01 36.5 C 87 18 118/63 95 03/02/21 07:14 36.4 C L 81 19 133/76 95 03/02/21 04:43 122 H 136/88 03/02/21 04:25 36.7 C 122 H 18 136/88 95 03/02/21 01:51 109 H 03/01/21 23:47 36.8 C 128 H 21 155/97 H 96 PG Care Time/CCT Total # of Minutes Spent Total Time Spent with Patient: Total time spent is greater than 50% in coordination of care (as documented) at patient's floor/unit and/or counseling patient: Coding Level of Care Code 74378 Initial Inpt Care Lvl 3 Diagnoses Acute hyponatremia E87.1 Weakness R53.1 Hypomagnesemia E83.42 Proteinuria R80.9 Hypokalemia E87.6
[2021-03-02] MEDS ORDERED: POTASSIUM CHLORIDE CRTAB 20 MEQ TABCR PO STA (11:35)
[2021-03-02 11:57] LABS: Albumin Level 2.4 gm/dl (3.4-5.0); BUN Creatinine Ratio 21.8 (10-20); Calcium 8.7 mg/dl (8.5-10.1); Creatinine Clr Calc Pharmacy 39.4 ml/min; Est GFR (African American) 53.6 ml/min; Est GFR (Non-African American) 46.3 ml/min; Phosphorus 2.8 mg/dl (2.5-4.9); Potassium 3.4 mmol/L (3.5-5.1)
[2021-03-02 15:04] LABS: Prostate Specific Antigen 0.543 ng/ml (0-4)
--- NOTE | 2021-03-02 16:51 | Electrocardiogram Report ---
Test Reason : Blood Pressure : / mmHG Vent. Rate : 101 BPM Atrial Rate : 101 BPM P-R Int : 156 ms QRS Dur : 092 ms QT Int : 350 ms P-R-T Axes : 061 054 070 degrees QTc Int : 453 ms Sinus tachycardia with Premature atrial complexes Otherwise normal ECG No previous ECGs available Confirmed by Sanjay Waldron ([id number]) on 03/02/2021 4:51:17 PM Referred By: REFERRED SELF Confirmed By:Rex Waldron
[2021-03-02] MEDS: DOXAZosin MESYLATE TAB 2 MG TAB PO SCH (19:38)
--- NOTE | 2021-03-02 22:06 | Hospitalist Progress Note ---
Date of Service March 02, 2021 Assessment & Plan (1) Acute hyponatremia: Patient appears volume contracted. Poor oral intake for 2-3 weeks. Checked urine Na and urine Osm along with serum Osm - studies not c/w SIADH. Gentle hydration with serial BMPs. Use isotonic saline at 80cc/hr. Certainly his HCTZ use at home also contributed to hyponatremia. Hold the HCTZ. [facility] (2) Weakness: Likely multifactorial - hyponatremia, hypomagnesemia, and suspected other occult process. His heme+ stool, change in bowel habits, back pain, etc are all worrisome perhaps for malignancy. Correct low Na and low mag. Check iron studies and B12 level. MRI lumbar spine - rule out metastatic disease, rule out signs of multiple myeloma, etc. No obvious infectious etiology today. COVID negative. TSH wnl. (3) Constipation: Last colonoscopy was 15+ years ago - no polyps. CT abd/pelvis without colonic pathology. Arhgs-zws-npym the change in bowel habits and heme+ stool are quite concerning. For constipation - miralax BID + senna 2 tabs daily. Heme+ stool -> see below. (4) Heme positive stool: see "constipation" above. check Fe studies. poor endoscopic evaluation candidate due to O2-dependent COPD. H/H are acceptable today. If iron is low consider IV venofer. (5) Lumbar back pain: MRI lumbar spine - r/o occult malignancy, multiple myeloma, etc. For pain - tylenol 1gm TID. Voltaren gel qid. (6) Hypothyroidism: TSH 2.8 today. Cont synthroid. (7) BPH (benign prostatic hyperplasia): Despite finasteride usage he has LUTS with considerable enlargement on exam today. Start alpha mirta. U/a not suggestive of UTI. No prostatitis on exam. (8) COPD (chronic obstructive pulmonary disease): severe, on home O2. continue home inhalers. no exacerbation at this time. (9) Obstructive sleep apnea of adult: CPAP 8cm H20. (10) Hypertension: uncontrolled. due to lumbar back pain? cont diltiazem. cont lisinopril. poor beta mirta candidate due to COPD. hold HCTZ due to low Na. adding alpha mirta for BPH which will help BP as well. (11) Chronic respiratory failure with hypoxia: on NC O2 continuously, 3 liters. stable. 2nd COPD. (12) Hypomagnesemia: replace with 2 grams mag sulfate. repeat mag level am. (13) Controlled type 2 diabetes mellitus with chronic kidney disease: last a1c was 6.2% in 12/13/20. c/w diet-controlled T2DM. BSGs ac/hs and DM diet. likely won't need any Rx. (14) Proteinuria: 3+ on u/a today. HTN nephrosclerosis? other? (15) DVT prophylaxis: SCDs for now Admission and Anticipated Discharge Date Admission Date: March 01, 2021 Subjective Patient reports doing well. He has no new complaints. Review of Systems Review of Systems: All systems reviewed & are unremarkable except as noted in HPI & below Physical Exam Physical Exam: Constitutional: in no acute distress, no altered mental status Eyes: + conjunctival abnormality (erythema, irritation ) and PERRL ENMT: external ear and nose normal, oropharynx normal Neck: trachea midline, no thyromegaly Respiratory: + tachypneic (intermittent ) Auscultation: + wheezes (diffuse b/l ) Cardiovascular: Rate/Rhythm: regular rhythm (with extra beats) and + t achycardic Heart Sounds: normal S1 and normal S2; no murmur Vessels: posterior tibial pulses present and dorsalis pedis pulses present; no JVD Extremities: + edema (1+ b/l, and RLE is larger than LLE) Gastrointestinal (Abdomen): Inspection/Auscultation: + abdomen distended and normal bowel sounds Percussion/Palpation: abdomen nontender, no guarding and no hepatosplenomegaly no rectal mass and no fecal impaction prostate - enlarged, not boggy, not tender. Firmness left upper lobe (possible nodule). Musculoskeletal: Spine: + paraspinal tenderness (lumbar region ); no thoracic spinal tenderness and no lumbar spinal tenderness Extremities: strength 5/5 throughout and + clubbing Skin: no rashes, warm and dry Neurologic: deep tendon reflexes 2+ bilaterally and moves all extremities Psychiatric: Orientation: alert and oriented x 3 Affect: + flat affect Lymphatic: no cervical lymphadenopathy Results & Data Results & Data ([facility]) Vital Signs (Past 12 Hours) Vital Signs Temp Pulse Pulse Resp BP Pulse Ox 03/02/21 16:00 81 03/02/21 15:34 36.6 C 79 19 127/73 96 03/02/21 11:24 94 03/02/21 11:01 36.5 C 87 18 118/63 95 PG Care Time/CCT Total # of Minutes Spent Total Time Spent with Patient: Total time spent is greater than 50% in coordination of care (as documented) at patient's floor/unit and/or counseling patient: Coding Level of Care Code 66937 Subseq Hosp Care Lvl 2 Diagnoses Acute hyponatremia E87.1 Weakness R53.1 Constipation K59.00 Heme positive stool R19.5 Lumbar back pain M54.5 Hypothyroidism E03.9 BPH (benign prostatic hyperplasia) N40.0 COPD (chronic obstructive pulmonary disease) J44.9 Obstructive sleep apnea of adult G47.33 Hypertension I10 Chronic respiratory failure with hypoxia J96.11 Hypomagnesemia E83.42 Controlled type 2 diabetes mellitus with chronic kidney disease E11.22 Proteinuria R80.9 DVT prophylaxis Z29.9 Time Spent (min) 25
[2021-03-03] MEDS: LEVOTHYROXINE SODIUM 100 MCG TABLET PO SCH (05:44)
[2021-03-03] MEDS: CYANOCOBALAMIN 500 MCG TABLET (VITAMIN B-12) PO SCH (07:05)
[2021-03-03] MEDS: dilTIAZem HCL 240 MG CAPCR PO SCH (07:06)
[2021-03-03] MEDS: FINASTERIDE 5 MG TAB PO SCH (07:07)
[2021-03-03] MEDS: CEROVITE ADV FORMULA TAB PO SCH (07:07)
[2021-03-03] MEDS: lisinopril 20 MG TAB PO SCH (07:07)
[2021-03-03] MEDS: SENNA 8.6 MG TAB PO SCH (07:08)
[2021-03-03] MEDS: UMECLIDINIUM/VILANTEROL 62.5/25MCG 7 PUFFS/INHALER INH SCH (07:09)
[2021-03-03] MEDS: POLYETHYLENE (MIRALAX) 17 GM PACK PO SCH ×2 (07:09→19:54)
[2021-03-03] MEDS: FLUTICASONE FUROATE 100MCG 14 PUFFS/INHALER INH SCH (07:10)
[2021-03-03] MEDS: ACETAMINOPHEN 500 MG TAB PO SCH ×3 (07:11→19:51)
[2021-03-03] MEDS: DICLOFENAC SOD 1% GEL 100 GM TUBE EXT SCH ×4 (07:11→19:51)
[2021-03-03 07:49] LABS: Albumin Level 2.6 gm/dl (3.4-5.0); BUN Creatinine Ratio 23.8 (10-20); Calcium 9.2 mg/dl (8.5-10.1); Creatinine Clr Calc Pharmacy 36.5 ml/min; Est GFR (African American) 48.9 ml/min; Est GFR (Non-African American) 42.2 ml/min; Potassium 3.6 mmol/L (3.5-5.1)
[2021-03-03 07:50] LABS: Phosphorus 2.8 mg/dl (2.5-4.9)
--- NOTE | 2021-03-03 12:09 | Nephrology Progress Note ---
Date of Service March 03, 2021 Assessment & Plan (1) Acute hyponatremia: Improving with management. Multifactorial related to poor solute intake, pain, NSAIDS, and HCTZ. Continue to encourage solute intake. Additional 20 mEq KCl provided today. HCTZ discontinued. BP and volume status acceptable. Document I/O's and monitor metabolic profile twice daily. (2) Hypomagnesemia: Repeat tomorrow AM. Evaluation for possible monoclonal process/prox tubule dysfunction pending. (3) Proteinuria: SPEP/IF pending. (4) Hypokalemia: (5) CKD (chronic kidney disease) stage 3, GFR 30-59 ml/min: Creatinine stable at baseline ~1.4 mg/dL. Outpatient follow up to be arranged at discharge. Medications appropriate for kidney dysfunction. Admission and Anticipated Discharge Date Admission Date: March 01, 2021 Subjective No acute events overnight. Expressed concerns regarding chronic constipation. Appetite good. Denies nausea. No diarrhea. No fluid retention. Review of Systems Review of Systems: All systems reviewed & are unremarkable except as noted in HPI & below Gastrointestinal: + constipation Physical Exam Constitutional: well developed; no acute distress Eyes: no scleral abnormality and no corneal abnormality ENMT: Mouth: no oral mucosal abnormality and oral mucous membranes not dry Neck: normal visual inspection and trachea midline Respiratory: normal respiratory effort Auscultation: lungs clear to auscultation bilaterally Cardiovascular: Rate/Rhythm: regular rate Heart Sounds: normal S1 and normal S2 Extremities: no edema Musculoskeletal: Extremities: no cyanosis and no clubbing Skin: normal turgor; no lesions Neurologic: Motor/Sensory: no tremor and no asterixis Psychiatric: Orientation: alert and oriented x 3 Results & Data ([facility]) Vital Signs (Past 12 Hours) Vital Signs Temp Pulse Pulse Resp BP BP Pulse Ox 03/03/21 11:34 36.8 C 67 18 141/72 H 96 03/03/21 07:42 94 H 03/03/21 07:39 03/03/21 07:23 36.7 C 63 20 138/70 95 03/03/21 03:48 37.0 C 92 H 20 106/66 95 Pulse Ox 03/03/21 11:34 03/03/21 07:42 03/03/21 07:39 95 03/03/21 07:23 03/03/21 03:48 Laboratory Results Laboratory Results - last 24 hr 03/02/21 03/02/21 03/02/21 14:07 14:07 16:30 Sodium 125 L Potassium Chloride Carbon Dioxide Anion Gap BUN Creatinine Est Cr Clr Drug Dosing Est GFR ( Amer) Est GFR (Non-Af Amer) BUN/Creatinine Ratio Glucose POC Glucose 116 H Calcium Phosphorus Total Protein (PEP) Pending Albumin Albumin (PEP) Pending Ewoad-4-Yhdqwziwo Pending Eupdd-8-Fxlkarkjh Pending Wojx-9-Kudqmckb Pending Yqgn-4-Rbmwzlnn Pending Gamma Globulins Pending Monoclonal Peak 3 Pending Ser Monoclonl Protein Pending Ser Monoclonal Prot 2 Pending PEP Interpretation Pending Prostate Specific Ag 0.543 Free [place] LC, Quant Pending Free Lambda LC, Quant Pending Free [place]/Lambda Ratio Pending 03/02/21 03/03/21 03/03/21 20:34 07:04 07:17 Sodium 128 L Potassium 3.6 Chloride 92 L Carbon Dioxide 28 Anion Gap 8.0 BUN 36 H Creatinine 1.49 H Est Cr Clr Drug Dosing 36.5 Est GFR ( Amer) 48.9 Est GFR (Non-Af Amer) 42.2 BUN/Creatinine Ratio 23.8 H Glucose 128 H POC Glucose 142 H 128 H Calcium 9.2 Phosphorus 2.8 Total Protein (PEP) Albumin 2.6 L Albumin (PEP) Vxbmn-0-Kwisokxgr Tlnop-6-Gdwlvqeun Vyrg-5-Ukmgfwob Bfgu-4-Drotwuer Gamma Globulins Monoclonal Peak 3 Ser Monoclonl Protein Ser Monoclonal Prot 2 PEP Interpretation Prostate Specific Ag Free [place] LC, Quant Free Lambda LC, Quant Free [place]/Lambda Ratio 03/03/21 11:30 Sodium Potassium Chloride Carbon Dioxide Anion Gap BUN Creatinine Est Cr Clr Drug Dosing Est GFR ( Amer) Est GFR (Non-Af Amer) BUN/Creatinine Ratio Glucose POC Glucose 136 H Calcium Phosphorus Total Protein (PEP) Albumin Albumin (PEP) Prqle-2-Hmhryoxnn Kzque-2-Ydwevdkve Zkvn-9-Yrotbfye Kcvm-1-Ounlvhhy Gamma Globulins Monoclonal Peak 3 Ser Monoclonl Protein Ser Monoclonal Prot 2 PEP Interpretation Prostate Specific Ag Free [place] LC, Quant Free Lambda LC, Quant Free [place]/Lambda Ratio PG Care Time/CCT Total # of Minutes Spent Total Time Spent with Patient: Total time spent is greater than 50% in coordination of care (as documented) at patient's floor/unit and/or counseling patient: Coding Level of Care Code 91966 Subseq Hosp Care Lvl 3 Diagnoses Acute hyponatremia E87.1 Hypomagnesemia E83.42 Proteinuria R80.9 Hypokalemia E87.6 CKD (chronic kidney disease) stage 3, GFR 30-59 ml/min N18.30
[2021-03-03] MEDS ORDERED: POTASSIUM CHLORIDE CRTAB 20 MEQ TABCR PO SCH (12:30)
[2021-03-03 16:56] LABS: BUN Creatinine Ratio 24.1 (10-20); Calcium 8.9 mg/dl (8.5-10.1); Creatinine Clr Calc Pharmacy 36.7 ml/min; Est GFR (African American) 49.3 ml/min; Est GFR (Non-African American) 42.5 ml/min
[2021-03-03] MEDS: DOXAZosin MESYLATE TAB 2 MG TAB PO SCH (19:51)
[2021-03-03] MEDS: NETARSUDIL MESYLAT/LATANOPROST 37 DROPS/2.5 ML BTL OP SCH (19:53)
[2021-03-03] MEDS: BRINZOLAMIDE/BRIMONIDINE TART 119 DROPS/8 ML BTL OPL SCH (19:53)
[2021-03-03] MEDS ORDERED: NETARSUDIL MESYLAT/LATANOPROST 37 DROPS/2.5 ML BTL OP SCH (21:00)
--- NOTE | 2021-03-03 22:51 | Hospitalist Progress Note ---
Date of Service March 03, 2021 Assessment & Plan (1) Acute hyponatremia: Patient appears volume contracted. Poor oral intake for 2-3 weeks. Checked urine Na and urine Osm along with serum Osm - studies not c/w SIADH. Gentle hydration with serial BMPs. Use isotonic saline at 80cc/hr. Certainly his HCTZ use at home also contributed to hyponatremia. Hold the HCTZ. Appreciate input from [facility]: will monitor. Sodium appears to be gradually improving. Will also consult PT/OT. (2) Weakness: Likely multifactorial - hyponatremia, hypomagnesemia, and suspected other occult process. His heme+ stool, change in bowel habits, back pain, etc are all worrisome perhaps for malignancy. Correct low Na and low mag. Check iron studies and B12 level. MRI lumbar spine - rule out metastatic disease, rule out signs of multiple myeloma, etc. No obvious infectious etiology today. COVID negative. TSH wnl. (3) Constipation: Last colonoscopy was 15+ years ago - no polyps. CT abd/pelvis without colonic pathology. Pkztc-htn-kozs the change in bowel habits and heme+ stool are quite concerning. For constipation - miralax BID + senna 2 tabs daily. Heme+ stool -> see below. (4) Heme positive stool: see "constipation" above. check Fe studies. poor endoscopic evaluation candidate due to O2-dependent COPD. H/H are acceptable today. If iron is low consider IV venofer. (5) Lumbar back pain: MRI lumbar spine - r/o occult malignancy, multiple myeloma, etc. For pain - tylenol 1gm TID. Voltaren gel qid. (6) Hypothyroidism: TSH 2.8 today. Cont synthroid. (7) BPH (benign prostatic hyperplasia): Despite finasteride usage he has LUTS with considerable enlargement on exam today. Start alpha mirta. U/a not suggestive of UTI. No prostatitis on exam. (8) COPD (chronic obstructive pulmonary disease): severe, on home O2. continue home inhalers. no exacerbation at this time. (9) Obstructive sleep apnea of adult: CPAP 8cm H20. (10) Hypertension: uncontrolled. due to lumbar back pain? cont diltiazem. cont lisinopril. poor beta mirta candidate due to COPD. hold HCTZ due to low Na. adding alpha mirta for BPH which will help BP as well. (11) Chronic respiratory failure with hypoxia: on NC O2 continuously, 3 liters. stable. 2nd COPD. (12) Hypomagnesemia: replace with 2 grams mag sulfate. repeat mag level am. (13) Controlled type 2 diabetes mellitus with chronic kidney disease: last a1c was 6.2% in 12/13/20. c/w diet-controlled T2DM. BSGs ac/hs and DM diet. likely won't need any Rx. (14) Proteinuria: 3+ on u/a today. HTN nephrosclerosis? other? (15) DVT prophylaxis: SCDs for now Admission and Anticipated Discharge Date Admission Date: March 01, 2021 Subjective Patient reports breathing better. HE HAS NO NEW COMPLAINTS. Physical Exam Physical Exam: Constitutional: in no acute distress, no altered mental status Eyes: + conjunctival abnormality (erythema, irritation ) and PERRL ENMT: external ear and nose normal, oropharynx normal Neck: trachea midline, no thyromegaly Respiratory: breathing better. Cardiovascular: Rate/Rhythm: regular rhythm (with extra beats) and + tachycardic Heart Sounds: normal S1 and normal S2; no murmur Vessels: posterior tibial pulses present and dorsalis pedis pulses present; no JVD Extremities: + edema (1+ b/l, and RLE is larger than LLE) Gastrointestinal (Abdomen): Inspection/Auscultation: + abdomen distended and normal bowel sounds Percussion/Palpation: abdomen nontender, no guarding and no hepatosplenomegaly no rectal mass and no fecal impaction prostate - enlarged, not boggy, not tender. Firmness left upper lobe (possible nodule). Musculoskeletal: Spine: + paraspinal tenderness (lumbar region ); no thoracic spinal tenderness and no lumbar spinal tenderness Extremities: strength 5/5 throughout and + clubbing Skin: no rashes, warm and dry Neurologic: deep tendon reflexes 2+ bilaterally and moves all extremities Psychiatric: Orientation: alert and oriented x 3 Affect: + flat affect Lymphatic: no cervical lymphadenopathy Results & Data Results & Data ([facility]) Vital Signs (Past 12 Hours) Vital Signs Temp Pulse Resp BP Pulse Ox 03/03/21 19:33 36.8 C 93 H 20 160/75 H 96 03/03/21 16:05 36.7 C 97 H 18 137/74 97 03/03/21 11:34 36.8 C 67 18 141/72 H 96 PG Care Time/CCT Total # of Minutes Spent Total Time Spent with Patient: Total time spent is greater than 50% in coordination of care (as documented) at patient's floor/unit and/or counseling patient: Coding Level of Care Code 54756 Subseq Hosp Care Lvl 2 Diagnoses Acute hyponatremia E87.1 Weakness R53.1 Constipation K59.00 Heme positive stool R19.5 Lumbar back pain M54.5 Hypothyroidism E03.9 BPH (benign prostatic hyperplasia) N40.0 COPD (chronic obstructive pulmonary disease) J44.9 Obstructive sleep apnea of adult G47.33 Hypertension I10 Chronic respiratory failure with hypoxia J96.11 Hypomagnesemia E83.42 Controlled type 2 diabetes mellitus with chronic kidney disease E11.22 Proteinuria R80.9 DVT prophylaxis Z29.9 Time Spent (min) 25
[2021-03-04] MEDS: LEVOTHYROXINE SODIUM 100 MCG TABLET PO SCH (04:40)
[2021-03-04 07:04] LABS: Albumin Level 2.5 gm/dl (3.4-5.0); BUN Creatinine Ratio 23.8 (10-20); Creatinine Clr Calc Pharmacy 41.4 ml/min; Est GFR (African American) 57.1 ml/min; Est GFR (Non-African American) 49.3 ml/min; Phosphorus 3.3 mg/dl (2.5-4.9); Potassium 3.9 mmol/L (3.5-5.1)
[2021-03-04] MEDS: dilTIAZem HCL 240 MG CAPCR PO SCH (07:42)
[2021-03-04] MEDS: POLYETHYLENE (MIRALAX) 17 GM PACK PO SCH ×2 (07:42→19:44)
[2021-03-04] MEDS: FINASTERIDE 5 MG TAB PO SCH (07:43)
[2021-03-04] MEDS: CEROVITE ADV FORMULA TAB PO SCH (07:43)
[2021-03-04] MEDS: SENNA 8.6 MG TAB PO SCH (07:43)
[2021-03-04] MEDS: UMECLIDINIUM/VILANTEROL 62.5/25MCG 7 PUFFS/INHALER INH SCH (07:44)
[2021-03-04] MEDS: CYANOCOBALAMIN 500 MCG TABLET (VITAMIN B-12) PO SCH (07:44)
[2021-03-04] MEDS: lisinopril 20 MG TAB PO SCH (07:44)
[2021-03-04] MEDS: FLUTICASONE FUROATE 100MCG 14 PUFFS/INHALER INH SCH (07:45)
[2021-03-04] MEDS: ACETAMINOPHEN 500 MG TAB PO SCH ×3 (07:47→23:32)
[2021-03-04] MEDS: DICLOFENAC SOD 1% GEL 100 GM TUBE EXT SCH ×4 (07:47→19:43)
[2021-03-04] MEDS: BRINZOLAMIDE/BRIMONIDINE TART 119 DROPS/8 ML BTL OPL SCH ×2 (07:47→19:43)
[2021-03-04 09:29] LABS: Hematocrit (blood only) 34.7 % (42-52); Hemoglobin 12.1 g/dL (14.0-18.0); Mean Corpuscular Hemoglobin 32.7 pg (25-34); Mean Corpuscular Hgb Conc 34.9 g/dL (32-36); Mean Corpuscular Volume 93.8 fL (80-100); Mean Platelet Volume 10.1 fL (7.4-10.4); Platelet Count 359 K/uL (130-400); RDW Coefficient of Variation 13.9 % (11.5-14.5); RDW Standard Deviation 47.8 fL (36.4-46.3); White Blood Count 10.01 K/uL (4.8-10.8)
--- NOTE | 2021-03-04 12:43 | Nephrology Progress Note ---
Date of Service March 04, 2021 Assessment & Plan (1) Acute hyponatremia: Improving with management. Multifactorial related to poor solute intake, pain, NSAIDS, and HCTZ. Continue to encourage solute intake. HCTZ discontinued. BP and volume status acceptable. Document I/O's and monitor metabolic profile twice daily. (2) Hypomagnesemia: Repeat tomorrow AM. Evaluation for possible monoclonal process/prox tubule dysfunction pending. (3) Proteinuria: SPEP/IF pending. (4) Hypokalemia: (5) CKD (chronic kidney disease) stage 3, GFR 30-59 ml/min: Creatinine stable at baseline ~1.4 mg/dL. Outpatient follow up to be arranged at discharge. Medications appropriate for kidney dysfunction. Admission and Anticipated Discharge Date Admission Date: March 01, 2021 Subjective No acute events overnight. Jose Alejandro feels well today. No complaints or concerns. I discussed the plan of care with Dr. Blackwood this AM. Possible SNF placement. Review of Systems Review of Systems: All systems reviewed & are unremarkable except as noted in HPI & below Physical Exam Constitutional: well developed; no acute distress Eyes: no scleral abnormality and no corneal abnormality ENMT: Mouth: no oral mucosal abnormality and oral mucous membranes not dry Neck: normal visual inspection and trachea midline Respiratory: normal respiratory effort Auscultation: lungs clear to auscultation bilaterally Cardiovascular: Rate/Rhythm: regular rate Heart Sounds: normal S1 and normal S2 Extremities: no edema Musculoskeletal: Extremities: no cyanosis and no clubbing Skin: normal turgor; no lesions Neurologic: Motor/Sensory: no tremor and no asterixis Psychiatric: Orientation: alert and oriented x 3 Results & Data ([facility]) Vital Signs (Past 12 Hours) Vital Signs Temp Pulse Pulse Resp BP Pulse Ox Pulse Ox 03/04/21 11:32 36.7 C 94 H 19 150/85 H 98 03/04/21 10:10 67 03/04/21 07:00 36.7 C 96 H 19 146/83 H 99 99 03/04/21 04:03 36.8 C 84 19 145/80 H 96 03/04/21 01:02 86 20 96 Laboratory Results Laboratory Results - last 24 hr 03/03/21 03/03/21 03/03/21 16:05 16:17 19:56 WBC RBC Hgb Hct MCV MCH MCHC RDW Std Deviation RDW Coeff of Devi Plt Count MPV Sodium 127 L Potassium 4.0 Chloride 92 L Carbon Dioxide 31 Anion Gap 4.0 BUN 36 H Creatinine 1.48 H Est Cr Clr Drug Dosing 36.7 Est GFR ( Amer) 49.3 Est GFR (Non-Af Amer) 42.5 BUN/Creatinine Ratio 24.1 H Glucose 129 H POC Glucose 128 H 139 H Calcium 8.9 Phosphorus Albumin 03/04/21 03/04/21 03/04/21 06:20 06:24 07:03 WBC 10.01 RBC 3.70 L Hgb 12.1 L Hct 34.7 L MCV 93.8 MCH 32.7 MCHC 34.9 RDW Std Deviation 47.8 H RDW Coeff of Devi 13.9 Plt Count 359 MPV 10.1 Sodium 130 L Potassium 3.9 Chloride 94 L Carbon Dioxide 29 Anion Gap 7.0 BUN 31 H Creatinine 1.31 Est Cr Clr Drug Dosing 41.4 Est GFR ( Amer) 57.1 Est GFR (Non-Af Amer) 49.3 BUN/Creatinine Ratio 23.8 H Glucose 109 H POC Glucose 110 H Calcium 9.0 Phosphorus 3.3 Albumin 2.5 L 03/04/21 11:31 WBC RBC Hgb Hct MCV MCH MCHC RDW Std Deviation RDW Coeff of Devi Plt Count MPV Sodium Potassium Chloride Carbon Dioxide Anion Gap BUN Creatinine Est Cr Clr Drug Dosing Est GFR ( Amer) Est GFR (Non-Af Amer) BUN/Creatinine Ratio Glucose POC Glucose 107 H Calcium Phosphorus Albumin PG Care Time/CCT Total # of Minutes Spent Total Time Spent with Patient: Total time spent is greater than 50% in coordination of care (as documented) at patient's floor/unit and/or counseling patient: Coding Level of Care Code 94514 Subseq Hosp Care Lvl 3 Diagnoses Acute hyponatremia E87.1 Hypomagnesemia E83.42 Proteinuria R80.9 Hypokalemia E87.6 CKD (chronic kidney disease) stage 3, GFR 30-59 ml/min N18.30
[2021-03-04] MEDS: DOXAZosin MESYLATE TAB 2 MG TAB PO SCH (19:42)
[2021-03-04] MEDS: NETARSUDIL MESYLAT/LATANOPROST 37 DROPS/2.5 ML BTL OP SCH (19:44)
--- NOTE | 2021-03-04 23:35 | Hospitalist Progress Note ---
Date of Service March 04, 2021 Assessment & Plan (1) Acute hyponatremia: Patient appears volume contracted. Poor oral intake for 2-3 weeks. Checked urine Na and urine Osm along with serum Osm - studies not c/w SIADH. Gentle hydration with serial BMPs. Use isotonic saline at 80cc/hr. Certainly his HCTZ use at home also contributed to hyponatremia. Hold the HCTZ. Appreciate input from [facility]: will monitor. Sodium appears to be gradually improving. Will also consult PT/OT. Patient requires placement to get stronger, case management is aware is agreeable. (2) Weakness: Likely multifactorial - hyponatremia, hypomagnesemia, and suspected other occult process. His heme+ stool, change in bowel habits, back pain, etc are all worrisome perhaps for malignancy. Correct low Na and low mag. Check iron studies and B12 level. MRI lumbar spine - rule out metastatic disease, rule out signs of multiple myeloma, etc. No obvious infectious etiology today. COVID negative. TSH wnl. (3) Constipation: Last colonoscopy was 15+ years ago - no polyps. CT abd/pelvis without colonic pathology. [id number] the change in bowel habits and heme+ stool are quite concerning. For constipation - miralax BID + senna 2 tabs daily. Heme+ stool -> see below. (4) Heme positive stool: see "constipation" above. check Fe studies. poor endoscopic evaluation candidate due to O2-dependent COPD. H/H are acceptable today. If iron is low consider IV venofer. (5) Lumbar back pain: MRI lumbar spine - r/o occult malignancy, multiple myeloma, etc. For pain - tylenol 1gm TID. Voltaren gel qid. (6) Hypothyroidism: TSH 2.8 today. Cont synthroid. (7) BPH (benign prostatic hyperplasia): Despite finasteride usage he has LUTS with considerable enlargement on exam today. Start alpha mirta. U/a not suggestive of UTI. No prostatitis on exam. (8) COPD (chronic obstructive pulmonary disease): severe, on home O2. continue home inhalers. no exacerbation at this time. (9) Obstructive sleep apnea of adult: CPAP 8cm H20. (10) Hypertension: uncontrolled. due to lumbar back pain? cont diltiazem. cont lisinopril. poor beta mirta candidate due to COPD. hold HCTZ due to low Na. adding alpha mirta for BPH which will help BP as well. (11) Chronic respiratory failure with hypoxia: on NC O2 continuously, 3 liters. stable. 2nd COPD. (12) Hypomagnesemia: replace with 2 grams mag sulfate. repeat mag level am. (13) Controlled type 2 diabetes mellitus with chronic kidney disease: last a1c was 6.2% in 12/13/20. c/w diet-controlled T2DM. BSGs ac/hs and DM diet. likely won't need any Rx. (14) Proteinuria: 3+ on u/a today. HTN nephrosclerosis? other? (15) DVT prophylaxis: SCDs for now Admission and Anticipated Discharge Date Admission Date: March 01, 2021 Subjective Patient reports feeling well. Has no new complaints. Review of Systems Review of Systems: All systems reviewed & are unremarkable except as noted in HPI & below Physical Exam Physical Exam: Constitutional: in no acute distress, no altered mental status Eyes: + conjunctival abnormality (erythema, irritation ) and PERRL ENMT: external ear and nose normal, oropharynx normal Neck: trachea midline, no thyromegaly Respiratory: breathing better. Cardiovascular: Rate/Rhythm: regular rhythm (with extra beats) and + tachycardic Heart Sounds: normal S1 and normal S2; no murmur Vessels: posterior tibial pulses present and dorsalis pedis pulses present; no JVD Extremities: + edema (1+ b/l, and RLE is larger than LLE) Gastrointestinal (Abdomen): Inspection/Auscultation: + abdomen distended and n ormal bowel sounds Percussion/Palpation: abdomen nontender, no guarding and no hepatosplenomegaly no rectal mass and no fecal impaction prostate - enlarged, not boggy, not tender. Firmness left upper lobe (possible nodule). Musculoskeletal: Spine: + paraspinal tenderness (lumbar region ); no thoracic spinal tenderness and no lumbar spinal tenderness Extremities: strength 5/5 throughout and + clubbing Skin: no rashes, warm and dry Neurologic: deep tendon reflexes 2+ bilaterally and moves all extremities Psychiatric: Orientation: alert and oriented x 3 Affect: + flat affect Lymphatic: no cervical lymphadenopathy Results & Data Results & Data ([facility]) Vital Signs (Past 12 Hours) Vital Signs Temp Pulse Pulse Resp BP Pulse Ox 03/04/21 23:07 36.7 C 96 H 20 142/78 H 96 03/04/21 22:53 83 03/04/21 19:34 36.8 C 102 H 20 159/83 H 95 03/04/21 15:20 36.7 C 93 H 20 97 PG Care Time/CCT Total # of Minutes Spent Total Time Spent with Patient: Total time spent is greater than 50% in coordination of care (as documented) at patient's floor/unit and/or counseling patient: Coding Level of Care Code 11558 Subseq Hosp Care Lvl 2 Diagnoses Acute hyponatremia E87.1 Weakness R53.1 Constipation K59.00 Heme positive stool R19.5 Lumbar back pain M54.5 Hypothyroidism E03.9 BPH (benign prostatic hyperplasia) N40.0 COPD (chronic obstructive pulmonary disease) J44.9 Obstructive sleep apnea of adult G47.33 Hypertension I10 Chronic respiratory failure with hypoxia J96.11 Hypomagnesemia E83.42 Controlled type 2 diabetes mellitus with chronic kidney disease E11.22 Proteinuria R80.9 DVT prophylaxis Z29.9 Time Spent (min) 25
[2021-03-05] MEDS: LEVOTHYROXINE SODIUM 100 MCG TABLET PO SCH (03:39)
[2021-03-05 06:16] LABS: BUN Creatinine Ratio 19.3 (10-20); Calcium 8.7 mg/dl (8.5-10.1); Creatinine Clr Calc Pharmacy 36.7 ml/min; Est GFR (African American) 48.9 ml/min; Est GFR (Non-African American) 42.2 ml/min; Potassium 4.2 mmol/L (3.5-5.1)
[2021-03-05] MEDS: ACETAMINOPHEN 500 MG TAB PO SCH (08:58)
[2021-03-05] MEDS: BRINZOLAMIDE/BRIMONIDINE TART 119 DROPS/8 ML BTL OPL SCH (09:00)
[2021-03-05] MEDS: CYANOCOBALAMIN 500 MCG TABLET (VITAMIN B-12) PO SCH (09:03)
[2021-03-05] MEDS: DICLOFENAC SOD 1% GEL 100 GM TUBE EXT SCH ×2 (09:04→13:41)
[2021-03-05] MEDS: FINASTERIDE 5 MG TAB PO SCH (09:05)
[2021-03-05] MEDS: dilTIAZem HCL 240 MG CAPCR PO SCH (09:05)
[2021-03-05] MEDS: FLUTICASONE FUROATE 100MCG 14 PUFFS/INHALER INH SCH (09:06)
[2021-03-05] MEDS: CEROVITE ADV FORMULA TAB PO SCH (09:07)
[2021-03-05] MEDS: lisinopril 20 MG TAB PO SCH (09:07)
[2021-03-05] MEDS: POLYETHYLENE (MIRALAX) 17 GM PACK PO SCH (09:07)
[2021-03-05] MEDS: SENNA 8.6 MG TAB PO SCH (09:08)
[2021-03-05] MEDS: UMECLIDINIUM/VILANTEROL 62.5/25MCG 7 PUFFS/INHALER INH SCH (09:09)
--- NOTE | 2021-03-05 09:50 | Nephrology Progress Note ---
Date of Service March 05, 2021 Assessment & Plan (1) Acute hyponatremia: Stable at 130 mmol/L. Multifactorial related to poor solute intake, pain, NSAIDS, and HCTZ. Continue to encourage solute intake. HCTZ discontinued. BP and volume status acceptable. Document I/O's while inpatient. Urine studies requested yesterday pending. However, no emergent intervention required. Dysnatremia is relatively mild at this point and should not preclude discharge with outpatient follow up. (2) Hypomagnesemia: Improved. Evaluation for possible monoclonal process/prox tubule dysfunction pending. (3) Proteinuria: SPEP/IF pending. (4) Hypokalemia: (5) CKD (chronic kidney disease) stage 3, GFR 30-59 ml/min: Creatinine stable at baseline ~1.4 mg/dL. Outpatient follow up to be arranged at discharge. Medications appropriate for kidney dysfunction. Admission and Anticipated Discharge Date Admission Date: March 01, 2021 Subjective No acute events overnight. No complaints this AM. Review of Systems Review of Systems: All systems reviewed & are unremarkable except as noted in HPI & below Physical Exam Constitutional: well developed; no acute distress Eyes: no scleral abnormality and no corneal abnormality ENMT: Mouth: no oral mucosal abnormality and oral mucous membranes not dry Neck: normal visual inspection and trachea midline Respiratory: normal respiratory effort Auscultation: lungs clear to auscultation bilaterally Cardiovascular: Rate/Rhythm: regular rate Heart Sounds: normal S1 and normal S2 Extremities: no edema Musculoskeletal: Extremities: no cyanosis and no clubbing Skin: normal turgor; no lesions Neurologic: Motor/Sensory: no tremor and no asterixis Psychiatric: Orientation: alert, oriented to person, oriented to place and cooperative Results & Data ([facility]) Vital Signs (Past 12 Hours) Vital Signs Temp Pulse Pulse Resp BP Pulse Ox 03/05/21 08:40 94 H 03/05/21 06:59 36.7 C 106 H 19 156/91 H 97 03/05/21 03:38 36.5 C 92 H 20 138/77 94 03/04/21 23:07 36.7 C 96 H 20 142/78 H 96 03/04/21 22:53 83 Laboratory Results Laboratory Results - last 24 hr 03/04/21 03/04/21 03/04/21 11:31 16:26 20:13 Sodium Potassium Chloride Carbon Dioxide Anion Gap BUN Creatinine Est Cr Clr Drug Dosing Est GFR ( Amer) Est GFR (Non-Af Amer) BUN/Creatinine Ratio Glucose POC Glucose 107 H 126 H 141 H Calcium 03/05/21 03/05/21 05:29 06:58 Sodium 130 L Potassium 4.2 Chloride 95 L Carbon Dioxide 32 Anion Gap 3.0 BUN 29 H Creatinine 1.49 H Est Cr Clr Drug Dosing 36.7 Est GFR ( Amer) 48.9 Est GFR (Non-Af Amer) 42.2 BUN/Creatinine Ratio 19.3 Glucose 106 H POC Glucose 116 H Calcium 8.7 PG Care Time/CCT Total # of Minutes Spent Total Time Spent with Patient: Total time spent is greater than 50% in coordination of care (as documented) at patient's floor/unit and/or counseling patient: Coding Level of Care Code 17533 Subseq Hosp Care Lvl 3 Diagnoses Acute hyponatremia E87.1 Hypomagnesemia E83.42 Proteinuria R80.9 Hypokalemia E87.6 CKD (chronic kidney disease) stage 3, GFR 30-59 ml/min N18.30
--- NOTE | 2021-03-05 15:32 | Discharge Summary ---
Date of Service March 05, 2021 Admission HPI Per Admitting Provider 85yo male with history of COPD with o2 dependency, 3 L NC continuously, BPH, and HTN presents with weakness for about 1-2 weeks, constipation troubles for 2-3 weeks (has had constipation for many years but much worse recently), anorexia for 2 weeks, fall yesterday at home due to weakness (no injury, no loss of consciousness), and low back pain. Denies any fevers, chills, nightsweats, or weight loss. Eyes have been irritated for a few weeks but was recently started on eye drops b/l for glaucoma. Denies sore throat. Denies loss of taste or smell. No vomiting. No dysuria. No rash. No obvious tick bites. No travel. No sick contacts. C/o lumbar back pain starting about 3 weeks ago. Denies leg paresthesias. C/o difficulty rising from a chair. He is not someone to have back pain. The pain is nearly constant and nagging. Principal Diagnosis Hyponatremia, weakness Discharge Exam Constitutional WD/WN, vitals as above (elderly male) no acute distress Neck trachea midline, no thyromegaly Respiratory normal respiratory effort, lungs clear to auscultation Cardiovascular RRR, no murmur, no edema Gastrointestinal (Abdomen) normal bowel sounds, soft, nontender, no hepatosplenomegaly Skin no rashes, warm and dry Neurologic CN's II-XI intact bilaterally, moves all extremities and awake; no focal motor deficits Psychiatric A+Ox3, euthymic affect Discharge Data Allergies Allergy/AdvReac Type Severity Reaction Status Date / Time No Known Allergies Allergy Verified 03/01/21 16:22 Consultations 03/01/21 17:25 ED Decision to Admit Stat 03/02/21 08:35 Consult Nephrology Routine Ordered Studies 03/01/21 16:16 CT abd pelvis wo con Stat CT head/brain wo con Stat 03/01/21 19:45 MR lumbar spine wo con Routine US venous doppler LE RT Routine Hospital Course (1) Acute hyponatremia: Patient appeared volume contracted on admission Poor oral intake for 2-3 weeks. Checked urine Na and urine Osm along with serum Osm - studies not c/w SIADH, likely just poor solute intake and taking HCTZ Gentle hydration with serial BMPs. Use isotonic saline at 80cc/hr. Certainly his HCTZ use at home also contributed to hyponatremia. stop HCTZ. [facility]. Sodium appears to be gradually improving. Will also consult PT/OT - recommend rehab Patient requires placement to get stronger, case management is aware is agreeable. (2) Weakness: Likely multifactorial - hyponatremia, hypomagnesemia, and suspected other occult process. His heme+ stool, change in bowel habits, back pain, etc are all worrisome perhaps for malignancy. Corrected low Na and low mag. Check iron studies and B12 level - will be on B12 supplements MRI lumbar spine - rule out metastatic disease, rule out signs of multiple myeloma, etc. No obvious infectious etiology today. COVID negative. TSH wnl. go to rehab (3) Constipation: Last colonoscopy was 15+ years ago - no polyps. CT abd/pelvis without colonic pathology. For constipation - miralax BID + senna 2 tabs daily. Heme+ stool -> see below. (4) Heme positive stool: see "constipation" above. check Fe studies. poor endoscopic evaluation candidate due to O2-dependent COPD. H/H are acceptable today. If iron is low consider IV venofer as outpatient (5) Lumbar back pain: MRI lumbar spine - r/o occult malignancy, multiple myeloma, etc. For pain - tylenol 1gm TID. Voltaren gel qid. (6) Hypothyroidism: TSH 2.8 today. Cont synthroid. (7) BPH (benign prostatic hyperplasia): Despite finasteride usage he has LUTS with considerable enlargement on exam Start alpha mirta - continue Doxazosin on discharge U/a not suggestive of UTI. No prostatitis on exam. (8) COPD (chronic obstructive pulmonary disease): severe, on home O2. continue home inhalers. no exacerbation at this time. (9) Obstructive sleep apnea of adult: CPAP 8cm H20. (10) Hypertension: uncontrolled. due to lumbar back pain? cont diltiazem. cont lisinopril. poor beta mirta candidate due to COPD. hold HCTZ due to low Na. adding alpha mirta for BPH which will help BP as well. follow BP as outpatient (11) Chronic respiratory failure with hypoxia: on NC O2 continuously, 3 liters. stable. 2nd COPD. (12) Hypomagnesemia: replace with 2 grams mag sulfate (13) Controlled type 2 diabetes mellitus with chronic kidney disease: last a1c was 6.2% in 12/13/20. c/w diet-controlled T2DM. BSGs ac/hs and DM diet. likely won't need any Rx. (14) Proteinuria: 3+ on u/a today. HTN nephrosclerosis? can follow as outpatient Total Time Total Time Spent Total Time Spent (In Minutes): 32 Total Time Includes: Examination of the Patient, Discharge Planning and Medication Reconciliation Discharge Plan Discharge Items Patient Disposition: Transfer Inpatient Rehab Fac Reason For Visit: HYPONATREMIA, WEAKNESS Discharge Diagnosis: Hyponatremia Weakness Condition on Discharge: Good Goals: improve strength improve nutrition, hydration Activity: Resume your previous activity Non-emergency contact: Primary Care Provider Call non-emergency contact if: you have any medication questions and your symptoms worsen Follow-up/Referrals: Kt Valerio III, MD [Primary Care Provider] - (one week after discharge from rehab) Diet: Carb Consistent or DM2 Addtl Attending Provider Instructions: Medications: see list Hyponatremia: needs to continue to eat and drink well, HCTZ was stopped, Na is 130 today, stable Constipation: continue on Miralax BID and Senna, can decrease the Miralax or change to PRN if he has diarrhea BPH with LUTS: started on Doxazosin, while here, continue and follow for symptom improvement Anemia: iron low but ferritin is 199, would not want to give PO Iron due to constipation, can arrange for outpatient Venofer infusion, not urgent, can be done once he is out of rehab Pending Studies at Discharge: No Stand-Alone Forms: My [facility] Skilled Items Patient informed of condition?: Yes DNR: No Discharge Level of Care: Acute rehab Communicable Disease: No Discharge Prognosis: Stable Lines: None Urinary Catheter: No Medications and DC Order Prescriptions: New sennosides [Senokot] 8.6 mg Tablet 17.2 mg PO QAM 30 Days Qty: 60 RF: 0 polyethylene glycol 3350 [Miralax] 17 gram Powder In Packet 17 g PO BID 30 Days Qty: 100 RF: 0 cyanocobalamin (vitamin B-12) 500 mcg Tablet 1,000 mcg PO QAM 30 Days Qty: 60 RF: 3 doxazosin 2 mg Tablet 2 mg PO HS 30 Days Qty: 30 RF: 0 Certavite-Antioxidant 18-400 mg-mcg Tablet 1 tab PO QAM 30 Days Qty: 30 RF: 3 Continued (DME) CPAP Supplies Misc See Rx Instructions .ROUTE .MEDSUPPLY Qty: 1 RF: 0 diltiazem HCl 120 mg capsule,extended release 24hr 240 mg PO DAILY Qty: 180 RF: 3 lisinopril 20 mg tablet 20 mg PO DAILY Qty: 90 RF: 3 finasteride 5 mg tablet 5 mg PO DAILY Qty: 90 RF: 3 levothyroxine 100 mcg tablet 100 mcg PO DAILY Qty: 90 RF: 3 (DME) CPAP Machine Misc See Dose Instructions .ROUTE .MEDSUPPLY Qty: 1 RF: 0 Trelegy Ellipta 100-62.5-25 mcg blister with device 1 inh INH DAILY Qty: 60 RF: 6 ipratropium-albuterol 0.5 mg-3 mg(2.5 mg base)/3 mL solution for nebulization 3 ml INH QID PRN (Reason: shortness of breath or wheezing) Qty: 120 RF: 2 albuterol sulfate [ProAir HFA] 90 mcg/actuation HFA aerosol inhaler 2 puff INH QID PRN (Reason: shortness of breath or wheezing) Qty: 18 RF: 3 Rocklatan 0.02-0.005 % Drops 1 drp OPHTHALMIC (EYE) DAILY RF: 0 Simbrinza 1-0.2 % Drops,Suspension 1 drp OPHTHALMIC (EYE) BID RF: 0 Trelegy Ellipta 100-62.5-25 mcg Blister With Device 1 inh INHALATION DAILY RF: 0 Discontinued hydrochlorothiazide 25 mg tablet 25 mg PO DAILY Qty: 90 RF: 3 Discharge Orders: Discharge Order (Routine); Ordered 03/05/21 Ordered By: Carlos Alberto Shukla Admission Data Admit Date/Time: 03/01/21 19:45 Attending Provider: Carlos Alberto Shukla Admit Provider: Jeff Praod Primary Care Provider: Kt Valerio III Other Providers: Jeff Prado ; Kathya Capone ; [facility] Other Interventions: Discharge Summary Assessment (RN) Last Done: 03/05/21 16:10 Coding Level of Care Code D/C Day Management >30 mins Diagnoses Acute hyponatremia E87.1 Weakness R53.1 Constipation K59.00 Heme positive stool R19.5 Lumbar back pain M54.5 Hypothyroidism E03.9 BPH (benign prostatic hyperplasia) N40.0 COPD (chronic obstructive pulmonary disease) J44.9 Obstructive sleep apnea of adult G47.33 Hypertension I10 Chronic respiratory failure with hypoxia J96.11 Hypomagnesemia E83.42 Controlled type 2 diabetes mellitus with chronic kidney disease E11.22 Proteinuria R80.9
[2021-03-06 10:11] LABS: Albumin 2.9 g/dL (3.8-4.8); Alpha 1 Globulin 0.5 g/dL (0.2-0.3); Alpha 2 Globulin 0.8 g/dL (0.5-0.9); Beta-1-Globulin 0.4 g/dL (0.4-0.6); Beta-2-Globulin 0.4 g/dL (0.2-0.5); Free Kappa 40.5 mg/L (3.3-19.4); Free Kappa/Lambda Ratio 0.99 (0.26-1.65); Gamma Globulin 0.7 g/dL (0.8-1.7); Monoclonal Protein Band 1 DNR g/dL (NONE DETECTED); Monoclonal Protein Band 2 DNR g/dL (NONE DETECTED); Monoclonal Protein Band 3 DNR g/dL (NONE DETECTED); Total Protein 5.7 g/dL (6.1-8.1)
== END 2021-03-05 16:38 | DRG 641 ==
LOC: ED 15:30 → 2S 19:45 → SUATTDRO 19:45 → 2S 22:04

== ENCOUNTER 2021-04-19 13:44 | Inpatient (IN) ==
--- NOTE | 2021-04-19 15:00 | Emergency Department Note ---
Impression & Plan Pulmonary embolism, Mediastinal mass, Leukocytosis ED Provider Note NAME: Annel ESPINOZA AGE: 85 SEX: M : 1935 ARRIVES VIA: Walk-In INFORMANT: Patient ED PROVIDER(S): Anthony Ma DO CHIEF COMPLAINT: Back pain HPI: Patient is an 85-year-old gentleman who presents to the ER chronically on 3 L nasal cannula for back pain. Pain is in his lower back. He had a CT of the thoracic spine done today and was unable to get up and walk and consequently brought him over. He was admitted for this recently. Denies any headache or change in vision. No chest pain or shortness of breath. No nausea vomiting or diarrhea. No weakness or numbness in the legs but notes the pain is so severe that he cannot walk. With rest to 6 out of 10 and is fairly comfortable. ROS: See above HPI for pertinent positives & negatives. A total of 10 systems reviewed and were otherwise negative. PAST MEDICAL HISTORY:See Below PAST SURGICAL HISTORY:See Below FAMILY HISTORY:See Below SOCIAL HISTORY:See Below HOME MEDICATIONS:See Below ALLERGIES:See Below VITALS:See Below PHYSICAL EXAMINATION: GENERAL: Sitting up in bed, alert, well appearing, well nourished, no distress, non-toxic EYE EXAM: normal conjunctiva. OROPHARYNX: no exudate, no erythema, lips, buccal mucosa, and tongue normal and mucous membranes are moist NECK: supple, no nuchal rigidity, no adenopathy, non-tender LUNGS: Clear to auscultation. Normal chest wall mechanics HEART: no murmurs, S1 normal and S2 normal ABDOMEN: abdomen soft, non-tender, normo-active bowel sounds, no masses, no rebound or guarding. BACK: Back is symmetrical on inspection and there is no deformity, no midline tenderness, no CVA tenderness. SKIN: no rashes and no bruising UPPER EXTREMITIES: upper extremities are grossly normal. LOWER EXTREMITIES: Flexion and extension of the hips, knees, ankles, and EHL 5/5 bilaterally. Gross sensation is intact. DPs are 1/4 bilateral. Patellar and Achilles reflexes are 2/4 bilateral NEURO EXAM: Normal sensorium, cranial nerves II-XII grossly intact, normal speech, no gross weakness of arms, no gross weakness of legs. MEDICAL DECISION MAKING: Patient is an 85-year-old male who presents ER for severe upper back pain. He had a CT performed as an outpatient which showed a questionable mass around the aorta. IV was established blood was obtained. Labs show mild leukocytosis of 13,000. Mild anemia at 12. INR was unremarkable. BMP with LFTs bilirubin was unremarkable. Lipase was normal. UA was clean. Covid was negative. CT of the chest abdomen pelvis showed PEs with a large mass in the thoracic region. This was discussed with Dr. Inder Bui in regards to anticoagulation. He notes he will discuss with pulmonology as there is concern for questionable hematoma. Will defer to them. Triage Nursing notes reviewed. Limited review of prior medical records performed Vital Signs: reviewed and remarkable for HTN Differential diagnosis: Differential diagnoses includes but is not limited to lumbar radiculopathy, kidney stone, muscle strain, facture, cauda equina, mass, and disc herniation. ER treatment provided: See below Diagnostics interpreted by me: Cardiac Monitoring: An order was placed for continuous cardiac monitoring. The monitor shows a rate of 101 with sinus rhythm. Laboratory studies: As stated above and show below. Imaging studies: CT angio with PE and medisteinal mass Consultation(s): D/W Eve Procedures: none Critical Care: I have personally spent 32 minutes of critical care time in the direct management of this patient. This includes bedside care, interpretation of diagnostic studies, and testing, discussion with consultants, patient, and famil y members, and other required patient management activities. This 32 minutes is in excess of all separately billable procedures. Past Med/Surg History Medical History (Updated 04/19/21 @ 20:16 by Anthony Ma DO) Acute hyponatremia Chronic respiratory failure with hypoxia 3 L NC O2 continuously Constipation Controlled type 2 diabetes mellitus with chronic kidney disease COPD (chronic obstructive pulmonary disease) Diverticulosis Epistaxis Hyperlipidemia Hypertension Hypothyroidism Obstructive sleep apnea of adult on CPAP, but noncompliant with it Pneumonia Surgical History H/O cataract extraction H/O colonoscopy Family History Father COPD (chronic obstructive pulmonary disease) Mother Hypertension Brother Dementia Daughter Breast cancer Other Heart disease Denies family history of Ovarian cancer Prostate cancer Myocardial infarction Colorectal cancer Social History Smoking Status: Former smoker Age Started Using Tobacco: 16; Age Quit Using Tobacco: 40; packs per day: 1; Years Smoked: 25; Second Hand Exposure: Yes; Hx Alcohol Use: No Hx Substance Use: No Preferred Language: Malaysian Communication Ability: Effective Hearing Ability: Normal Inventory Control/Shipping Receiving Required: No Beliefs That Will Affect Care: None marital status: Current Living Situation: Spouse Current Living Situation Comment: [employer] current occupational status: retired How many Children do You have: 2 Other Information That Helps Us Care for You: No other: [employer] [place] Feels Safe at Home: Yes Safety Concerns: Feels Safe At This Time Dental Care, Regularly: Yes Physical Activity Frequency: Does not Exercise Seatbelt Use: always Sunscreen Use: No Assistive Devices: Denture - Upper, Denture - Lower, Glasses, Oxygen - Continuous, Walker and Wheelchair Allergies Allergies Allergy/AdvReac Type Severity Reaction Status Date / Time No Known Allergies Allergy Verified 04/19/21 16:02 Home Meds Home Medications Medication Instructions Recorded Confirmed brinzolamide 1 %-brimonidine 0.2 % 1 drp OPHTHALMIC (EYE) BID 03/02/21 04/19/21 eye drops,suspension (Simbrinza) netarsudil 0.02 %-latanoprost 1 drp OPHTHALMIC (EYE) HS 03/02/21 04/19/21 0.005 % eye drops (Rocklatan) diclofenac sodium 1 % topical gel 2 g TOPICAL QID 03/15/21 04/19/21 docusate sodium 100 mg tablet 100 mg PO BID 03/15/21 04/19/21 diltiazem HCl 120 mg 240 mg PO QAM 04/19/21 04/19/21 capsule,extended release 24 hr finasteride 5 mg tablet 5 mg PO QAM 04/19/21 04/19/21 fluticasone fur. 100 mcg-umeclid 1 inh INH DAILYBB 04/19/21 04/19/21 62.5 mcg-vilant 25 mcg inhalat.powder (Trelegy Ellipta) ibuprofen 200 mg tablet 600 mg PO Q6H PRN 04/19/21 04/19/21 levothyroxine 100 mcg tablet 100 mcg PO DAILYBB 04/19/21 04/19/21 lisinopril 20 mg tablet 20 mg PO QAM 04/19/21 04/19/21 sennosides 8.6 mg tablet (senna) 17.2 mg PO QAM 04/19/21 04/19/21 Previous Rx's Medication Instructions Recorded CPAP Machine #1 ea 06/14/19 CPAP Supplies #1 ea 03/28/20 albuterol sulfate 90 mcg/actuation 2 puff INH QID PRN #18 gm 02/27/21 aerosol inhaler (ProAir HFA) cyanocobalamin (vitamin B-12) 500 1,000 mcg PO QAM 30 Days #60 tab 03/05/21 mcg tablet multivitamin-ferrous 1 tab PO QAM 30 Days #30 tab 03/05/21 fumarate-folic acid 18 mg-400 mcg tablet (Certavite-Antioxidant) doxazosin 2 mg tablet 2 mg PO HS #90 tab 03/15/21 Wheelchair (Manual) #1 ea 04/17/21 Results & Data (ED) Vital Signs Vital Signs - 24 hr 04/19/21 13:46 04/19/21 14:03 04/19/21 14:46 Temperature 36.9 C 37.5 C 36.7 C Temperature Source Oral Oral Oral Pulse Rate 94 H Pulse Rate [Right Finger] 77 77 Pulse Rate from SpO2 Sensor Respiratory Rate 18 20 16 Respiratory Effort / Characteristics Non-Labored Spontaneous Respiratory Depth Normal Respiratory Pattern Regular Blood Pressure 131/70 Blood Pressure [Right Arm] 130/74 144/59 H Blood Pressure Mean 90 Blood Pressure Mean [Right Arm] 92 87 Blood Pressure Position Sitting Blood Pressure Position [Right Arm] Semi-fowlers Semi-fowlers Pulse Oximetry 95 100 100 Oxygen Delivery Method Nasal Cannula Nasal Cannula Nasal Cannula Oxygen Flow Rate 4 3 3 Sepsis Recent Fever Within 48 Hours No Sepsis New/Unexplained Change in Mental Status N/A Sepsis Action Taken by Nursing No Action Required 04/19/21 15:13 04/19/21 16:00 04/19/21 16:30 Temperature Temperature Source Pulse Rate 93 H 105 H Pulse Rate [Right Finger] Pulse Rate from SpO2 Sensor 46 L 57 L Respiratory Rate 23 24 Respiratory Effort / Characteristics Respiratory Depth Respiratory Pattern Blood Pressure 148/74 H 143/89 H Blood Pressure [Right Arm] Blood Pressure Mean 98 107 Blood Pressure Mean [Right Arm] Blood Pressure Position Blood Pressure Position [Right Arm] Pulse Oximetry 100 100 98 Oxygen Delivery Method Nasal Cannula Oxygen Flow Rate 3 Sepsis Recent Fever Within 48 Hours Sepsis New/Unexplained Change in Mental Status Sepsis Action Taken by Nursing 04/19/21 17:00 04/19/21 17:30 04/19/21 18:01 Temperature Temperature Source Pulse Rate 104 H 103 H 113 H Pulse Rate [Right Finger] Pulse Rate from SpO2 Sensor 59 L 55 L Respiratory Rate 27 H 23 23 Respiratory Effort / Characteristics Respiratory Depth Respiratory Pattern Blood Pressure 136/66 150/67 H 136/60 Blood Pressure [Right Arm] Blood Pressure Mean 89 94 85 Blood Pressure Mean [Right Arm] Blood Pressure Position Blood Pressure Position [Right Arm] Pulse Oximetry 98 100 Oxygen Delivery Method Oxygen Flow Rate Sepsis Recent Fever Within 48 Hours Sepsis New/Unexplained Change in Mental Status Sepsis Action Taken by Nursing Laboratory Data Result diagrams: 04/19/21 15:08 04/19/21 15:08 Lab Results 04/19/21 04/19/21 04/19/21 Range/Units 15:08 15:08 15:08 WBC 13.55 H (4.8-10.8) K/uL RBC 3.66 L (4.7-6.1) M/uL Hgb 12.1 L (14.0-18.0) g/dL Hct 35.6 L (42-52) % MCV 97.3 (80-100) fL MCH 33.1 (25-34) pg MCHC 34.0 (32-36) g/dL RDW Std Deviation 58.9 H (36.4-46.3) fL RDW Coeff of Devi 16.6 H (11.5-14.5) % Plt Count 302 (130-400) K/uL MPV 10.2 (7.4-10.4) fL Immature Gran % (Auto) 0.7 % Neut % (Auto) 83.0 % Lymph % (Auto) 7.1 % [place] % (Auto) 8.7 % Eos % (Auto) 0.4 % Baso % (Auto) 0.1 % Neut # (Auto) 11.25 H (1.4-6.5) K/uL Lymph # (Auto) 0.96 L (1.2-3.4) K/uL [place] # (Auto) 1.18 H (0.11-0.59) K/uL Eos # (Auto) 0.06 (0-0.5) K/uL Baso # (Auto) 0.01 (0-0.2) K/uL Immature Gran # (Auto) 0.09 H (0.00-0.02) K/uL PT 11.0 (9.0-12.0) Seconds INR 1.1 (0.9-1.1) Sodium 133 L (136-145) mmol/L Potassium 4.3 (3.5-5.1) mmol/L Chloride 100 (98-107) mmol/L Carbon Dioxide 30 (21-32) mmol/L Anion Gap 3.0 (3-11) BUN 42 H (7-18) mg/dl Creatinine 1.45 H (0.6-1.4) mg/dl Est Cr Clr Drug Dosing 38.1 ml/min Est GFR ( Amer) 50.5 ml/min Est GFR (Non-Af Amer) 43.6 ml/min BUN/Creatinine Ratio 28.8 H (10-20) Glucose 114 H (70-99) mg/dl Calcium 9.4 (8.5-10.1) mg/dl Total Bilirubin 0.4 (0.2-1) mg/dl AST 15 (15-37) U/L ALT 19 (12-78) U/L Alkaline Phosphatase 81 (45-117) U/L Total Protein 6.2 L (6.4-8.2) gm/dl Albumin 2.8 L (3.4-5.0) gm/dl Globulin 3.4 (2.5-4.0) gm/dl Albumin/Globulin Ratio 0.8 L (0.9-2) Lipase 73 (73-393) U/L Administered Medications Heparin Sodium/Dextrose (Heparin Sodium/Dextrose) 25,000 units in 500 mls @ 26 mls/hr IV .[id number] [facility]; Protocol Stop: 05/19/21 18:44 Last Admin: 04/19/21 19:50 Dose: 1,300 units/hr, 26 mls/hr Documented by: [id number] Cosigned by: [id number] Morphine Sulfate (Morphine Sulfate 2 Mg/Ml Carp) 2 mg IV Q4H PRN PRN Reason: Pain Stop: 05/03/21 18:02 Last Admin: 04/19/21 20:02 Dose: 2 mg Documented by: [id number] Imaging Data Radiologist's Impression: Abdomen/Pelvis CTA 04/19/21 14:58 CT ANGIOGRAM OF THE ABDOMEN AND PELVIS CLINICAL HISTORY: Abnormal descending thoracic aorta. Mass lesion. COMPARISON STUDY: Abdominal CT dated 03/01/2021. TECHNIQUE: Following the IV administration of 119 cc of Optiray 320, CT angiogram of the abdomen and pelvis was performed from the lung bases the proximal femora. Images are reviewed in the axial, sagittal, and coronal planes. 3-D MIPS images are created and assessed. IV contrast was administered without complication. A dose lowering technique was utilized adhering to the principles of ALARA. CT DOSE: 1048.91 mGy.cm FINDINGS: Lower chest: The heart is normal in size and without pericardial effusion. There are coronary artery calcifications. Emphysematous change is noted at the lung bases. There is no airspace consolidation or pleural effusion. Liver: The contrast-enhanced liver is normal in size, contour, and attenuation. There is no intrahepatic biliary ductal dilatation. The main portal veins appear patent. There is a 6 cm low-attenuation mass lesion identified in the medial left lobe of the liver Gallbladder: Unremarkable. Spleen: Normal in size and attenuation, measuring 12.3 cm in length. Pancreas: Atrophic and grossly unremarkable. Adrenal glands: Unremarkable. Kidneys: The contrast enhanced kidneys are atrophic and without hydronephrosis. The kidneys enhance symmetrically. Abdominal aorta and iliac arteries: There is advanced atherosclerotic calcification and mild ectasia of the abdominal aorta. No dissection is seen. The abdominal aorta is widely patent. The iliac arteries are widely patent bilaterally. Major branches of the abdominal aorta: The celiac trunk, superior mesenteric, and inferior mesenteric arteries are widely patent. There is a replaced right hepatic artery which arises from the superior mesenteric artery. A replaced left hepatic artery arises from the left gastric artery. The splenic artery is patent. There are single bilateral renal arteries. There is high-grade stenosis with focal near complete occlusion of the right renal artery approximately 2 cm from origin aorta. This is best seen on image #123. The remainder of the right renal artery is patent. The left renal artery is patent. Bowel: There is mild colonic diverticulosis without CT evidence of acute diverticulitis. No bowel obstruction is seen. Moderate fecal retention is noted throughout the colon. The appendix is well-visualized and normal. Peritoneum: There is no intraperitoneal free air or abdominal ascites. Lymphadenopathy: None. Pelvic viscera: The prostate gland is enlarged and heterogeneous noting median lobe hypertrophy. The bladder is normal as visualized. Skeletal structures: The skeletal structures are osteopenic. There is mild to moderate lumbosacral spondylosis. No lytic or blastic lesion is Seen. There is a fat-containing umbilical hernia. IMPRESSION: 1. There is a 6 cm subtle low attenuation mass lesion within the left lobe of the liver. Neoplasm is the diagnosis of exclusion. 2. Unremarkable CT angiogram of the abdominal aorta noting advanced atherosclerotic plaque. 3. There is focal high-grade stenosis with near complete occlusion of the proximal to mid right renal artery as above. 4. Otherwise unremarkable CT angiogram of the major branches of the abdominal aorta. 5. Emphysema. 6. Moderate constipation. 7. Additional findings as above. ACT 112: Positive. There are findings on this exam that require communication between the performing entity and the patient following Patient Test Result Information Act ([place] Act 112) guidelines. Electronically signed by: Red Matamoros M.D. 04/19/2021 4:14 PM Chest CTA 04/19/21 14:58 CT ANGIOGRAM OF THE CHEST COMBO CLINICAL HISTORY: Chest pain COMPARISON STUDY: August 17, 2012. Also correlation is made with CT of thoracic spine performed earlier today. TECHNIQUE: Before and following the IV administration of 119 cc of Optiray, CT angiogram of the chest was performed from the thoracic inlet to the upper abdomen utilizing the dissection protocol. Images are reviewed in the axial, sagittal, and coronal planes. 3-D MIPS images are created and assessed. IV contrast was administered without complication. A dose lowering technique was utilized adhering to the principles of ALARA. CT DOSE: FINDINGS: There is no axillary, supra clavicle or internal mammary lymphadenopathy seen. There are few small mediastinal lymph nodes which measure less than 1 cm in short axis and nonpathological by CT size criteria. Acute pulmonary embolus is seen within within multiple branches of the right pulmonary artery supplying right upper and lower lobes. Main portal pulmonary arteries slightly dilated measuring 3.2 cm in diameter. No evidence of right heart strain. Ascending thoracic aorta is normal in caliber. Descending thoracic aorta is ectatic measuring up to 2.9 cm in diameter with multiple partial calcified plaques and luminal irregularity. Few areas of plaque-like ulceration is seen within aortic wall, largest is seen within the aortic arch (/). Large hypoattenuating mass is encasing descending thoracic aorta and anterior and left lateral portion of vertebral column measuring approximately 6.7 x 5.0 cm on axial view (6/114) and 10.0 centimeter in craniocaudal dimension. Opacified intracoastal arteries are seen coarsening through the mass from aortic wall to the intercostal spaces, better visualized on series 602. Thyroid: Imaged portions of the thyroid gland are normal in size and attenuation. Heart: The heart is normal in size and configuration, and without pericardial effusion. Lungs and pleural spaces: Tracheobronchial tree is patent. No large infiltrates or consolidative lesions are seen. Mild centrilobular upper lobe predominant emphysema is seen. No pleural effusion is seen. No large pulmonary nodules are seen however evaluation is limited due to motion artifact. Upper abdomen: Please see report of CT of abdomen performed at the same time.. Skeletal structures: Please see report of the CT of the thoracic spine performed earlier today. IMPRESSION: 1. Acute pulmonary emboli within branches of the right pulmonary artery supplying the right upper and lower lobes. No right heart strain is seen. Dilated main pulmonary artery which could be due to PE or represent chronic pulmonary hypertension. Findings will be sent to ordering provider. 2. Slightly ectatic thoracic aorta with extensive soft and calcified plaques within its wall, luminal irregularity and plaque-like ulcerations. No evidence of aortic dissection. 3. 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 Para-aortic hematoma is less likely. Please correlate above- mentioned findings with oncology evaluation. 4. Emphysema. ACT 112: Negative or not required by law. The above report was generated using voice recognition software. It may contain grammatical, syntax or spelling errors. Electronically signed by: Iva Jin DO 04/19/2021 4:30 PM Discharge Plan Visit Data Chief Complaint: Back Injury/Pain Stated Complaint: BACK PAIN - RADIATING DOWN BOTH LEGS ED Provider: Anthony Ma Discharge Problem: Pulmonary embolism, Mediastinal mass, Leukocytosis Patient Disposition: Admitted As Inpatient Discharge Instructions Interventions: ED Discharge Assessment Last Done: 04/19/21 19:08 Discharge Problem: Pulmonary embolism Qualifiers: Pulmonary embolism type: unspecified Chronicity: unspecified Acute cor pulmonale presence: unspecified Qualified Code(s): I26.99 - Other pulmonary embolism without acute cor pulmonale Leukocytosis Qualifiers: Leukocytosis type: unspecified Qualified Code(s): D72.829 - Elevated white blood cell count, unspecified
[2021-04-19 15:31] LABS: Basophils # (auto) 0.01 K/uL (0-0.2); Basophils % (auto) 0.1 %; Eosinophils # (auto) 0.06 K/uL (0-0.5); Eosinophils % (auto) 0.4 %; Hematocrit (blood only) 35.6 % (42-52); Hemoglobin 12.1 g/dL (14.0-18.0); Immature Granulocytes # (auto) 0.09 K/uL (0.00-0.02); Immature Granulocytes % (auto) 0.7 %; Lymphocytes # (auto) 0.96 K/uL (1.2-3.4); Lymphocytes % (auto) 7.1 %; Mean Corpuscular Hemoglobin 33.1 pg (25-34); Mean Corpuscular Volume 97.3 fL (80-100); Mean Platelet Volume 10.2 fL (7.4-10.4); Monocytes # (auto) 1.18 K/uL (0.11-0.59); Monocytes % (auto) 8.7 %; Neutrophils # (auto) 11.25 K/uL (1.4-6.5); Platelet Count 302 K/uL (130-400); RDW Coefficient of Variation 16.6 % (11.5-14.5); RDW Standard Deviation 58.9 fL (36.4-46.3); Red Blood Count 3.66 M/uL (4.7-6.1); White Blood Count 13.55 K/uL (4.8-10.8)
[2021-04-19 15:37] LABS: Albumin Level 2.8 gm/dl (3.4-5.0); BUN Creatinine Ratio 28.8 (10-20); Calcium 9.4 mg/dl (8.5-10.1); Creatinine Clr Calc Pharmacy 38.1 ml/min; Est GFR (African American) 50.5 ml/min; Est GFR (Non-African American) 43.6 ml/min; Potassium 4.3 mmol/L (3.5-5.1)
[2021-04-19 15:41] LABS: Albumin Globulin Ratio 0.8 (0.9-2); Bilirubin,Total 0.4 mg/dl (0.2-1); Globulin 3.4 gm/dl (2.5-4.0); Total Protein 6.2 gm/dl (6.4-8.2)
--- NOTE | 2021-04-19 16:15 | CT Scan Report ---
CT ANGIOGRAM OF THE ABDOMEN AND PELVIS CLINICAL HISTORY: Abnormal descending thoracic aorta. Mass lesion. COMPARISON STUDY: Abdominal CT dated 03/01/2021. TECHNIQUE: Following the IV administration of 119 cc of Optiray 320, CT angiogram of the abdomen and pelvis was performed from the lung bases the proximal femora. Images are reviewed in the axial, sagit vineet, and coronal planes. 3-D MIPS images are created and assessed. IV contrast was administered witho ut complication. A dose lowering technique was utilized adhering to the principles of ALARA. CT DOSE: 1048.91 mGy.cm FINDINGS: Lower chest: The heart is normal in size and without pericardial effusion. There are coronary artery calcifications. Emphysematous change is noted at the lung bases. There is no airspace consolidation o r pleural effusion. Liver: The contrast-enhanced liver is normal in size, contour, and attenuation. There is no intrahepa tic biliary ductal dilatation. The main portal veins appear patent. There is a 6 cm low-attenuation m ass lesion identified in the medial left lobe of the liver Gallbladder: Unremarkable. Spleen: Normal in size and attenuation, measuring 12.3 cm in length. Pancreas: Atrophic and grossly unremarkable. Adrenal glands: Unremarkable. Kidneys: The contrast enhanced kidneys are atrophic and without hydronephrosis. The kidneys enhance s ymmetrically. Abdominal aorta and iliac arteries: There is advanced atherosclerotic calcification and mild ectasia of the abdominal aorta. No dissection is seen. The abdominal aorta is widely patent. The iliac arteri es are widely patent bilaterally. Major branches of the abdominal aorta: The celiac trunk, superior mesenteric, and inferior mesenteric arteries are widely patent. There is a replaced right hepatic artery which arises from the superior mesenteric artery. A replaced left hepatic artery arises from the left gastric artery. The splenic ar dinorah is patent. There are single bilateral renal arteries. There is high-grade stenosis with focal ne ar complete occlusion of the right renal artery approximately 2 cm from origin aorta. This is best se en on image #123. The remainder of the right renal artery is patent. The left renal artery is patent. Bowel: There is mild colonic diverticulosis without CT evidence of acute diverticulitis. No bowel obs truction is seen. Moderate fecal retention is noted throughout the colon. The appendix is well-visua lized and normal. Peritoneum: There is no intraperitoneal free air or abdominal ascites. Lymphadenopathy: None. Pelvic viscera: The prostate gland is enlarged and heterogeneous noting median lobe hypertrophy. The bladder is normal as visualized. Skeletal structures: The skeletal structures are osteopenic. There is mild to moderate lumbosacral sp ondylosis. No lytic or blastic lesion is Seen. There is a fat-containing umbilical hernia. IMPRESSION: 1. There is a 6 cm subtle low attenuation mass lesion within the left lobe of the liver. Neoplasm is the diagnosis of exclusion. 2. Unremarkable CT angiogram of the abdominal aorta noting advanced atherosclerotic plaque. 3. There is focal high-grade stenosis with near complete occlusion of the proximal to mid right renal artery as above. 4. Otherwise unremarkable CT angiogram of the major branches of the abdominal aorta. 5. Emphysema. 6. Moderate constipation. 7. Additional findings as above. ACT 112: Positive. There are findings on this exam that require communication between the performing entity and the patient following Patient Test Result Information Act ([place] Act 112) guidelines. Electronically signed by: Red Matamoros M.D. 04/19/2021 4:14 PM
[2021-04-19] MEDS ORDERED: OPTIRAY 320 125ml IV ONE (16:21)
--- NOTE | 2021-04-19 16:32 | CT Scan Report ---
CT ANGIOGRAM OF THE CHEST COMBO CLINICAL HISTORY: Chest pain COMPARISON STUDY: August 17, 2012. Also correlation is made with CT of thoracic spine performed ear lier today. TECHNIQUE: Before and following the IV administration of 119 cc of Optiray, CT angiogram of the chest was performed from the thoracic inlet to the upper abdomen utilizing the dissection protocol. Images are reviewed in the axial, sagittal, and coronal planes. 3-D MIPS images are created and assessed. I V contrast was administered without complication. A dose lowering technique was utilized adhering to the principles of ALARA. CT DOSE: FINDINGS: There is no axillary, supra clavicle or internal mammary lymphadenopathy seen. There are few small mediastinal lymph nodes which measure less than 1 cm in short axis and nonpatholo gical by CT size criteria. Acute pulmonary embolus is seen within within multiple branches of the right pulmonary artery supplyi ng right upper and lower lobes. Main portal pulmonary arteries slightly dilated measuring 3.2 cm in diameter. No evidence of right he art strain. Ascending thoracic aorta is normal in caliber. Descending thoracic aorta is ectatic measuring up to 2.9 cm in diameter with multiple partial calcifi ed plaques and luminal irregularity. Few areas of plaque-like ulceration is seen within aortic wall, largest is seen within the aortic arch (6/72). Large hypoattenuating mass is encasing descending thoracic aorta and anterior and left lateral portio n of vertebral column measuring approximately 6.7 x 5.0 cm on axial view (6/114) and 10.0 centimeter in craniocaudal dimension. Opacified intracoastal arteries are seen coarsening through the mass from aortic wall to the intercostal spaces, better visualized on series 602. Thyroid: Imaged portions of the thyroid gland are normal in size and attenuation. Heart: The heart is normal in size and configuration, and without pericardial effusion. Lungs and pleural spaces: Tracheobronchial tree is patent. No large infiltrates or consolidative lesions are seen. Mild centrilobular upper lobe predominant emphysema is seen. No pleural effusion is seen. No large pulmonary nodules are seen however evaluation is limited due to motion artifact. Upper abdomen: Please see report of CT of abdomen performed at the same time.. Skeletal structures: Please see report of the CT of the thoracic spine performed earlier today. IMPRESSION: 1. Acute pulmonary emboli within branches of the right pulmonary artery supplying the right upper an d lower lobes. No right heart strain is seen. Dilated main pulmonary artery which could be due to PE or represent chronic pulmonary hypertension. Findings will be sent to ordering provider. 2. Slightly ectatic thoracic aorta with extensive soft and calcified plaques within its wall, lumina l irregularity and plaque-like ulcerations. No evidence of aortic dissection. 3. Large hypoattenuating posterior mediastinal mass most likely representing neoplastic process, in tercostal arteries are seen coursing through the mass as detailed above. Para-aortic hematoma is less likely. Please correlate above-mentioned findings with oncology evaluation. 4. Emphysema. ACT 112: Negative or not required by law. The above report was generated using voice recognition software. It may contain grammatical, syntax o r spelling errors. Electronically signed by: Iva Jin DO 04/19/2021 4:30 PM
[2021-04-19 16:45] LABS: Appearance Urine Clear (Clear); Bacteria Urine Automated Negative (Negative); Bilirubin Urine Negative (Negative); Blood Urine Negative (Negative); Color Urine Yellow; Epithelial Cell Urine Auto >30 /lpf (0-5); Glucose Urine UA Negative (Negative); Ketones Urine Negative (Negative); Leukocyte Esterase Urine Negative (Negative); Nitrite Urine Negative (Negative); Protein Urine 3+ (Negative); RBC Urine Automated 0-4 /hpf (0-4); Specific Gravity Urine 1.026 (1.000-1.030); Urobilinogen Urine Negative (Negative); pH Urine 5.5 (4.5-7.5)
--- NOTE | 2021-04-19 17:14 | History & Physical Report ---
Date of Service April 19, 2021 Assessment & Plan (1) Mediastinal mass: Plan: The patient's mediastinal mass and liver mass are highly concerning for neoplasm. lymphoma? other? The mass seems to abut the aorta which is the likely cause of his severe back pain. I cannot rule out neurological compromise of the thoracic spine given his b/l leg weakness. He will need tissue sampling for diagnosis - liver biopsy?? other? Will ask Dr Rodriguez from oncology to see in consult tomorrow. Will ask Dr Urbina from pulmonary to see in consult (Dr Urbina also follows Mr Feliciano in pulmonary clinic). I reviewed the films with Dr Urbina - will proceed cautiously with systemic anticoagulation for his PEs. (2) Pulmonary emboli: Plan: Acute right-sided PEs. Could be contributing to some of his chest & back discomfort. Check dopplers of legs, r/o DVT. Start heparin infusion, standard dosing, no bolus. Given the CT chest findings will need to watch very closely for any clinical worsening (from a bleeding standpoint). No thoracic dissection or aneurysm on imaging today, however. (3) Severe back pain: Plan: Start morphine 2mg IV prn. Tylenol 1gm TID scheduled. Lidoderm patches. Will obtain MRI of thoracic spine - r/o cord compromise, r/o bony involvement from the mediastinal mass, etc. (4) Bilateral leg weakness: Plan: No myelopathy on examination but [id number], given the mediastinal mass and his severe back pain, need to ensure that the mass is not invading the spinal canal, etc. MRI thoracic spine ordered urgently. Pain control. Bedrest with commode privileges only until MRI results have returned. (5) Liver mass: Plan: Again highly concerning for neoplasm. See above. (6) CKD (chronic kidney disease) stage 3, GFR 30-59 ml/min: Plan: Baseline CrCl 30s. BMP in am. Gentle hydration overnight given the recent CT contrast. (7) Chronic respiratory failure with hypoxia: Plan: on home O2, 3 L continuously. 2nd COPD. stable. (8) Hypothyroidism: Plan: TSH 2.8 in February. Cont synthroid. (9) BPH (benign prostatic hyperplasia): Plan: Cont alpha mirta. Cont finasteride. (10) COPD (chronic obstructive pulmonary disease): Plan: Mild end-exp wheezes on exam but patient not reporting any worsening symptoms beyond baseline. Cont usual inhalers, O2, etc. (11) Hypertension: Plan: Cont diltiazem. Cont alpha mirta. (12) Controlled type 2 diabetes mellitus with chronic kidney disease: Plan: Last HbA1c was 6.2% earlier this year c/w pre-DM. Place on DM diet. BSG checks. Hopefully pre-DM can be controlled with diet alone. (13) Hyponatremia: Plan: Very mild, 133 today. Has been low since 2019. This is about baseline. low-grade SIADH from #1 above?? BMP in am. (14) Constipation: Plan: Miralax with senna. Plan: Place in PCU. History of Present Illness Chief Complaint: back pain Primary Care Provider: Kt Valerio MD 85yo male with chronic hypoxic respiratory failure on home 02 due to COPD presents with severe back pain and bilateral leg weakness. He was admitted to our hospital in February for failure to thrive and severe back pain. During that stay he had an MRI of the lumbar spine that did not show a specific etiology for his back pain. States the pain was a little better after he left the hospital, then got worse again in March. Since March the pain is constant, bothers him at night, and has been progressive. The pain is located in the middle of the back. No pleuritic component to it. Constant "nagging," and when he moves it gets worse. Has been taking ibuprofen for this pain without relief. The pain radiates at times to the central chest. Denies any worsening dyspnea above and beyond his baseline. He uses 3 L NC O2 and this hasn't changed. He has lost weight but isn't sure how much. Despite such he has been eating well. He has had worsening b/l leg pain and weakness. This has been present for 1-2 weeks. He has had falls due to the weakness. Denies numbness/tingling of legs or numbness of the abdominal wall. Denies bowel or bladder incontinence. Has had constipation. Records show he saw his PCP's office about 10 days ago and he was placed on a prednisone taper for his pain. Allergies Allergy/AdvReac Type Severity Reaction Status Date / Time No Known Allergies Allergy Verified 04/19/21 16:02 Home Medications Medication Instructions Recorded Confirmed Type CPAP Machine #1 ea 06/14/19 04/09/21 Rx CPAP Supplies #1 ea 03/28/20 04/09/21 Rx albuterol sulfate 90 mcg/actuation 2 puff INH QID PRN #18 gm 02/27/21 04/19/21 Rx aerosol inhaler (ProAir HFA) brinzolamide 1 %-brimonidine 0.2 % 1 drp OPHTHALMIC (EYE) BID 03/02/21 04/19/21 History eye drops,suspension (Simbrinza) netarsudil 0.02 %-latanoprost 1 drp OPHTHALMIC (EYE) HS 03/02/21 04/19/21 History 0.005 % eye drops (Rocklatan) cyanocobalamin (vitamin B-12) 500 1,000 mcg PO QAM 30 Days #60 tab 03/05/21 04/19/21 Rx mcg tablet multivitamin-ferrous 1 tab PO QAM 30 Days #30 tab 03/05/21 04/19/21 Rx fumarate-folic acid 18 mg-400 mcg tablet (Certavite-Antioxidant) diclofenac sodium 1 % topical gel 2 g TOPICAL QID 03/15/21 04/19/21 History docusate sodium 100 mg tablet 100 mg PO BID 03/15/21 04/19/21 History doxazosin 2 mg tablet 2 mg PO HS #90 tab 03/15/21 04/19/21 Rx Wheelchair (Manual) #1 ea 04/17/21 Rx diltiazem HCl 120 mg 240 mg PO QAM 04/19/21 04/19/21 History capsule,extended release 24 hr finasteride 5 mg tablet 5 mg PO QAM 04/19/21 04/19/21 History fluticasone fur. 100 mcg-umeclid 1 inh INH DAILYBB 04/19/21 04/19/21 History 62.5 mcg-vilant 25 mcg inhalat.powder (Trelegy Ellipta) ibuprofen 200 mg tablet 600 mg PO Q6H PRN 04/19/21 04/19/21 History levothyroxine 100 mcg tablet 100 mcg PO DAILYBB 04/19/21 04/19/21 History lisinopril 20 mg tablet 20 mg PO QAM 04/19/21 04/19/21 History sennosides 8.6 mg tablet (senna) 17.2 mg PO QAM 04/19/21 04/19/21 History Past Med/Surg History Medical History (Updated 04/19/21 @ 22:16 by Jeff Prado) Acute hyponatremia Chronic respiratory failure with hypoxia 3 L NC O2 continuously Constipation Controlled type 2 diabetes mellitus with chronic kidney disease COPD (chronic obstructive pulmonary disease) Diverticulosis Epistaxis Hyperlipidemia Hypertension Hypothyroidism Obstructive sleep apnea of adult on CPAP, but noncompliant with it Pneumonia Surgical History H/O cataract extraction H/O colonoscopy Family History Father COPD (chronic obstructive pulmonary disease) Mother Hypertension Brother Dementia Daughter Breast cancer Other Heart disease Denies family history of Ovarian cancer Prostate cancer Myocardial infarction Colorectal cancer Social History Smoking Status: Former smoker Age Started Using Tobacco: 16; Age Quit Using Tobacco: 40; packs per day: 1; Years Smoked: 25; Second Hand Exposure: Yes; Hx Alcohol Use: No Hx Substance Use: No Preferred Language: Lithuanian Communication Ability: Effective Hearing Ability: Normal Cam Maker Required: No Beliefs That Will Affect Care: None marital status: Current Living Situation: Spouse Current Living Situation Comment: [place] current occupational status: retired How many Children do You have: 2 Other Information That Helps Us Care for You: No other: [employer] Joyce Feels Safe at Home: Yes Safety Concerns: Feels Safe At This Time Dental Care, Regularly: Yes Physical Activity Frequency: Does not Exercise Seatbelt Use: always Sunscreen Use: No Assistive Devices: Denture - Upper, Denture - Lower, Glasses, Oxygen - Continuous, Walker and Wheelchair Review of Systems Constitutional: + weakness (legs) and + weight loss; no fever, no chills, no sweats and no anorexia Eyes: no worsening vision Ear, Nose, Mouth, Throat: no sore throat and no dysphagia Respiratory: + cough (occasional) and + dyspnea on exertion (at baseline) Cardiovascular: as per Subjective / HPI, + chest pain and + edema; no orthopnea Gastrointestinal: + constipation; no abdominal pain, no nausea, no vomiting and no blood in stools Genitourinary: no urinary incontinence Musculoskeletal: as per Subjective / HPI and + back pain Integumentary: no rash Neurologic: + localized weakness (legs); no tingling Psychiatric: no depression Endocrine: + problem reported (diabetes - BSGs <200 ) Hematologic / Lymphatic: + easy bruising (due to falls ); no easy bleeding Physical Exam Constitutional: + acute distress (with movement he has severe mid back pain ) and + frail appearing; no altered mental status Eyes: PERRL (1-2mm b/l) ENMT: external ear and nose normal, oropharynx normal Neck: normal visual inspection and trachea midline Respiratory: no respiratory distress and no cough Auscultation: + wheezes (end-exp b/l -- mild ); no crackles Cardiovascular: Rate/Rhythm: regular rhythm and + tachycardic Heart Sounds: normal S1 and normal S2; no murmur Vessels: no JVD Extremities: + edema (1+ right ankle/foot; trace on left ) Gastrointestinal (Abdomen): normal bowel sounds, soft, nontender, no hepatosplenomegaly Musculoskeletal: Spine: + thoracic spinal tenderness, + lumbar spinal tenderness and + paraspinal tenderness Skin: no rashes, warm and dry Trauma: + evidence of skin trauma (b/l knees with bruises ) Neurologic: patellar and biceps reflexes 2+ b/l; no ankle clonus. hip flexion, knee extension, and ankle dorsiflexion/plantarflexion 5/5 strength b/l. no facial droop. Psychiatric: A+Ox3, euthymic affect Lymphatic: no cervical lymphadenopathy Results & Data Results & Data ([facility]) Vital Signs (Past 12 Hours) Vital Signs Temp Pulse Pulse Resp BP BP Pulse Ox 04/19/21 15:13 100 04/19/21 14:46 36.7 C 77 16 144/59 H 100 04/19/21 14:03 37.5 C 77 20 130/74 100 04/19/21 13:46 36.9 C 94 H 18 131/70 95 Laboratory Results Laboratory Results - last 24 hr 04/19/21 04/19/21 04/19/21 15:08 15:08 15:08 WBC 13.55 H RBC 3.66 L Hgb 12.1 L Hct 35.6 L MCV 97.3 MCH 33.1 MCHC 34.0 RDW Std Deviation 58.9 H RDW Coeff of Devi 16.6 H Plt Count 302 MPV 10.2 Immature Gran % (Auto) 0.7 Neut % (Auto) 83.0 Lymph % (Auto) 7.1 [place] % (Auto) 8.7 Eos % (Auto) 0.4 Baso % (Auto) 0.1 Neut # (Auto) 11.25 H Lymph # (Auto) 0.96 L [place] # (Auto) 1.18 H Eos # (Auto) 0.06 Baso # (Auto) 0.01 Immature Gran # (Auto) 0.09 H PT 11.0 INR 1.1 Sodium 133 L Potassium 4.3 Chloride 100 Carbon Dioxide 30 Anion Gap 3.0 BUN 42 H Creatinine 1.45 H Est Cr Clr Drug Dosing 38.1 Est GFR ( Amer) 50.5 Est GFR (Non-Af Amer) 43.6 BUN/Creatinine Ratio 28.8 H Glucose 114 H Calcium 9.4 Total Bilirubin 0.4 AST 15 ALT 19 Alkaline Phosphatase 81 Total Protein 6.2 L Albumin 2.8 L Globulin 3.4 Albumin/Globulin Ratio 0.8 L Lipase 73 Urine Color Urine Appearance Urine pH Ur Specific [place] Urine Protein Urine Glucose (UA) Urine Ketones Urine Blood Urine Nitrite Urine Bilirubin Urine Urobilinogen Ur Leukocyte Esterase Urine WBC (Auto) Urine RBC (Auto) U Hyaline Cast (Auto) U Epithel Cells (Auto) Urine Bacteria (Auto) Ur Renal Epithelial Cell COVID-19 Eval Order SARS-CoV-2 (PCR) 04/19/21 04/19/21 04/19/21 Unknown Unknown Unknown WBC RBC Hgb Hct MCV MCH MCHC RDW Std Deviation RDW Coeff of Devi Plt Count MPV Immature Gran % (Auto) Neut % (Auto) Lymph % (Auto) [place] % (Auto) Eos % (Auto) Baso % (Auto) Neut # (Auto) Lymph # (Auto) [place] # (Auto) Eos # (Auto) Baso # (Auto) Immature Gran # (Auto) PT INR Sodium Potassium Chloride Carbon Dioxide Anion Gap BUN Creatinine Est Cr Clr Drug Dosing Est GFR ( Amer) Est GFR (Non-Af Amer) BUN/Creatinine Ratio Glucose Calcium Total Bilirubin AST ALT Alkaline Phosphatase Total Protein Albumin Globulin Albumin/Globulin Ratio Lipase Urine Color Yellow Urine Appearance Clear Urine pH 5.5 Ur Specific [place] 1.026 Urine Protein 3+ H Urine Glucose (UA) Negative Urine Ketones Negative Urine Blood Negative Urine Nitrite Negative Urine Bilirubin Negative Urine Urobilinogen Negative Ur Leukocyte Esterase Negative Urine WBC (Auto) 1-5 Urine RBC (Auto) 0-4 U Hyaline Cast (Auto) 5-10 H U Epithel Cells (Auto) >30 H Urine Bacteria (Auto) Negative Ur Renal Epithelial Cell Not Reportable COVID-19 Eval Order Covid19 at [facility] SARS-CoV-2 (PCR) NEGATIVE Diagnostic Findings Abdomen/Pelvis CTA 04/19/21 14:58 CT ANGIOGRAM OF THE ABDOMEN AND PELVIS CLINICAL HISTORY: Abnormal descending thoracic aorta. Mass lesion. COMPARISON STUDY: Abdominal CT dated 03/01/2021. TECHNIQUE: Following the IV administration of 119 cc of Optiray 320, CT angiogram of the abdomen and pelvis was performed from the lung bases the proximal femora. Images are reviewed in the axial, sagittal, and coronal planes. 3-D MIPS images are created and assessed. IV contrast was administered without complication. A dose lowering technique was utilized adhering to the principles of ALARA. CT DOSE: 1048.91 mGy.cm FINDINGS: Lower chest: The heart is normal in size and without pericardial effusion. There are coronary artery calcifications. Emphysematous change is noted at the lung bases. There is no airspace consolidation or pleural effusion. Liver: The contrast-enhanced liver is normal in size, contour, and attenuation. There is no intrahepatic biliary ductal dilatation. The main portal veins appear patent. There is a 6 cm low-attenuation mass lesion identified in the medial left lobe of the liver Gallbladder: Unremarkable. Spleen: Normal in size and attenuation, measuring 12.3 cm in length. Pancreas: Atrophic and grossly unremarkable. Adrenal glands: Unremarkable. Kidneys: The contrast enhanced kidneys are atrophic and without hydronephrosis. The kidneys enhance symmetrically. Abdominal aorta and iliac arteries: There is advanced atherosclerotic calcification and mild ectasia of the abdominal aorta. No dissection is seen. The abdominal aorta is widely patent. The iliac arteries are widely patent bilaterally. Major branches of the abdominal aorta: The celiac trunk, superior mesenteric, and inferior mesenteric arteries are widely patent. There is a replaced right hepatic artery which arises from the superior mesenteric artery. A replaced left hepatic artery arises from the left gastric artery. The splenic artery is patent. There are single bilateral renal arteries. There is high-grade stenosis with focal near complete occlusion of the right renal artery approximately 2 cm from origin aorta. This is best seen on image #123. The remainder of the right renal artery is patent. The left renal artery is patent. Bowel: There is mild colonic diverticulosis without CT evidence of acute diverticulitis. No bowel obstruction is seen. Moderate fecal retention is noted throughout the colon. The appendix is well-visualized and normal. Peritoneum: There is no intraperitoneal free air or abdominal ascites. Lymphadenopathy: None. Pelvic viscera: The prostate gland is enlarged and heterogeneous noting median lobe hypertrophy. The bladder is normal as visualized. Skeletal structures: The skeletal structures are osteopenic. There is mild to moderate lumbosacral spondylosis. No lytic or blastic lesion is Seen. There is a fat-containing umbilical hernia. IMPRESSION: 1. There is a 6 cm subtle low attenuation mass lesion within the left lobe of the liver. Neoplasm is the diagnosis of exclusion. 2. Unremarkable CT angiogram of the abdominal aorta noting advanced atherosclerotic plaque. 3. There is focal high-grade stenosis with near complete occlusion of the proximal to mid right renal artery as above. 4. Otherwise unremarkable CT angiogram of the major branches of the abdominal aorta. 5. Emphysema. 6. Moderate constipation. 7. Additional findings as above. ACT 112: Positive. There are findings on this exam that require communication between the performing entity and the patient following Patient Test Result Information Act ([place] Act 112) guidelines. Electronically signed by: Red Matamoros M.D. 04/19/2021 4:14 PM Chest CTA 04/19/21 14:58 CT ANGIOGRAM OF THE CHEST COMBO CLINICAL HISTORY: Chest pain COMPARISON STUDY: August 17, 2012. Also correlation is made with CT of thoracic spine performed earlier today. TECHNIQUE: Before and following the IV administration of 119 cc of Optiray, CT angiogram of the chest was performed from the thoracic inlet to the upper abdomen utilizing the dissection protocol. Images are reviewed in the axial, sagittal, and coronal planes. 3-D MIPS images are created and assessed. IV contrast was administered without complication. A dose lowering technique was utilized adhering to the principles of ALARA. CT DOSE: FINDINGS: There is no axillary, supra clavicle or internal mammary lymphadenopathy seen. There are few small mediastinal lymph nodes which measure less than 1 cm in short axis and nonpathological by CT size criteria. Acute pulmonary embolus is seen within within multiple branches of the right pulmonary artery supplying right upper and lower lobes. Main portal pulmonary arteries slightly dilated measuring 3.2 cm in diameter. No evidence of right heart strain. Ascending thoracic aorta is normal in caliber. Descending thoracic aorta is ectatic measuring up to 2.9 cm in diameter with multiple partial calcified plaques and luminal irregularity. Few areas of plaque-like ulceration is seen within aortic wall, largest is seen within the aortic arch (6/72). Large hypoattenuating mass is encasing descending thoracic aorta and anterior and left lateral portion of vertebral column measuring approximately 6.7 x 5.0 cm on axial view (6/114) and 10.0 centimeter in craniocaudal dimension. Opacified intracoastal arteries are seen coarsening through the mass from aortic wall to the intercostal spaces, better visualized on series 602. Thyroid: Imaged portions of the thyroid gland are normal in size and attenuation. Heart: The heart is normal in size and configuration, and without pericardial effusion. Lungs and pleural spaces: Tracheobronchial tree is patent. No large infiltrates or consolidative lesions are seen. Mild centrilobular upper lobe predominant emphysema is seen. No pleural effusion is seen. No large pulmonary nodules are seen however evaluation is limited due to motion artifact. Upper abdomen: Please see report of CT of abdomen performed at the same time.. Skeletal structures: Please see report of the CT of the thoracic spine performed earlier today. IMPRESSION: 1. Acute pulmonary emboli within branches of the right pulmonary artery sup plying the right upper and lower lobes. No right heart strain is seen. Dilated main pulmonary artery which could be due to PE or represent chronic pulmonary hypertension. Findings will be sent to ordering provider. 2. Slightly ectatic thoracic aorta with extensive soft and calcified plaques within its wall, luminal irregularity and plaque-like ulcerations. No evidence of aortic dissection. 3. 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 Para-aortic hematoma is less likely. Please correlate above- mentioned findings with oncology evaluation. 4. Emphysema. ACT 112: Negative or not required by law. The above report was generated using voice recognition software. It may contain grammatical, syntax or spelling errors. Electronically signed by: Iva Jin DO 04/19/2021 4:30 PM Code Status & VTE Plan Code Status full code PG Care Time/CCT Total # of Minutes Spent Total Time Spent with Patient: Total time spent is greater than 50% in coordination of care (as documented) at patient's floor/unit and/or counseling patient: Coding Level of Care Code 76664 Initial Inpt Care Lvl 3 Diagnoses Mediastinal mass J98.59 Pulmonary emboli I26.99 Severe back pain M54.9 Liver mass R16.0 CKD (chronic kidney disease) stage 3, GFR 30-59 ml/min N18.30 Chronic respiratory failure with hypoxia J96.11 Hypothyroidism E03.9 BPH (benign prostatic hyperplasia) N40.0 COPD (chronic obstructive pulmonary disease) J44.9 Hypertension I10 Controlled type 2 diabetes mellitus with chronic kidney disease E11.22 Hyponatremia E87.1 Bilateral leg weakness R29.898 Constipation K59.00
[2021-04-19] MEDS ORDERED: Heparin IV Adult Wt-Based Standard *NO* Bolus Protocol IV ONE (17:57)
[2021-04-19 18:44] LABS: INR 1.1 (0.9-1.1)
[2021-04-19] MEDS ORDERED: HEPARIN SODIUM/DEXTROSE 25,000 UNITS/500 ML BAG IV SCH (18:45)
[2021-04-19] MEDS ORDERED: SODIUM CHLORIDE 0.9% 1000ML 1,000 ML IV SCH (19:03)
[2021-04-19] MEDS ORDERED: ONDANSETRON INJ 2 MG/ML 2 ML VIAL IV PRN (19:03)
[2021-04-19] MEDS ORDERED: LIDOCAINE 5% 1 PATCH TD SCH (19:03)
[2021-04-19] MEDS: MoRPHine SULFATE 2 MG/ML CARP IV PRN (20:02)
[2021-04-19] MEDS ORDERED: ALBUTEROL HFA 8 GM INHALER INH PRN (21:00)
[2021-04-19] MEDS ORDERED: BRIMONIDINE TARTRATE 0.2% 5ML OPL SCH (21:00)
[2021-04-19] MEDS ORDERED: ACETAMINOPHEN 500 MG TAB PO SCH (21:00)
[2021-04-19] MEDS ORDERED: DOXAZosin MESYLATE TAB 2 MG TAB PO SCH (21:00)
[2021-04-19] MEDS ORDERED: POLYETHYLENE (MIRALAX) 17 GM PACK PO SCH (21:00)
[2021-04-19] MEDS ORDERED: BRINZOLAMIDE (AZOPT) OPS 10 ML BTL OPL SCH (21:00)
[2021-04-19] MEDS ORDERED: DICLOFENAC SOD 1% GEL 100 GM TUBE EXT SCH (21:00)
[2021-04-19] MEDS ORDERED: GADOBUTROL 65ML VIAL IV ONE (22:37)
[2021-04-20] MEDS ORDERED: dexAMETHasone 4 MG in SYRINGE 0 ML IV SCH (01:00)
[2021-04-20 02:13] LABS: Partial Thromboplastin Ratio 1.8
[2021-04-20 02:18] LABS: Partial Thromboplastin Time 48.1 Seconds (21.0-31.0)
--- NOTE | 2021-04-20 02:24 | Discharge Summary ---
Date of Service April 20, 2021 Admission HPI Per Admitting Provider 85yo male with chronic hypoxic respiratory failure on home 02 due to COPD presents with severe back pain and bilateral leg weakness. He was admitted to our hospital in February for failure to thrive and severe back pain. During that stay he had an MRI of the lumbar spine that did not show a specific etiology for his back pain. States the pain was a little better after he left the hospital, then got worse again in March. Since March the pain is constant, bothers him at night, and has been progressive. The pain is located in the middle of the back. No pleuritic component to it. Constant "nagging," and when he moves it gets worse. Has been taking ibuprofen for this pain without relief. The pain radiates at times to the central chest. Denies any worsening dyspnea above and beyond his baseline. He uses 3 L NC O2 and this hasn't changed. He has lost weight but isn't sure how much. Despite such he has been eating well. He has had worsening b/l leg pain and weakness. This has been present for 1-2 weeks. He has had falls due to the weakness. Denies numbness/tingling of legs or numbness of the abdominal wall. Denies bowel or bladder incontinence. Has had constipation. Records show he saw his PCP's office about 10 days ago and he was placed on a prednisone taper for his pain. Admission Exam Per Admitting Provider Constitutional: + acute distress (with movement he has severe mid back pain ) and + frail appearing; no altered mental status Eyes: PERRL (1-2mm b/l) ENMT: external ear and nose normal, oropharynx normal Neck: normal visual inspection and trachea midline Respiratory: no respiratory distress and no cough Auscultation: + wheezes (end- exp b/l -- mild ); no crackles Cardiovascular: Rate/Rhythm: regular rhythm and + tachycardic Heart Sounds: normal S1 and normal S2; no murmur Vessels: no JVD Extremities: + edema (1+ right ankle/foot; trace on left ) Gastrointestinal (Abdomen): normal bowel sounds, soft, nontender, no hepatosplenomegaly Musculoskeletal: Spine: + thoracic spinal tenderness, + lumbar spinal tenderness and + paraspinal tenderness Skin: no rashes, warm and dry Trauma: + evidence of skin trauma (b/l knees with bruises ) Neurologic: patellar and biceps reflexes 2+ b/l; no ankle clonus. hip flexion, knee extension, and ankle dorsiflexion/plantarflexion 5/5 strength b/l. no facial droop. Psychiatric: A+Ox3, euthymic affect Lymphatic: no cervical lymphadenopathy Principal Diagnosis Prevertebral mass with spinal cord compression, mediastinal mass, liver mass, pulmonary embolism Discharge Exam Constitutional: well-appearing, no acute distress CV: tachycardic, no murmur appreciated, extremities well-perfused, BL LE 1+ edema Resp: CTABL, mild end-expiratory wheezes, no increased work of breathing Neuro: AOx4, no focal neurological deficits appreciated, LE strength 5/5 BL Discharge Data Allergies Allergy/AdvReac Type Severity Reaction Status Date / Time No Known Allergies Allergy Verified 04/19/21 16:02 Consultations 04/19/21 17:11 ED Decision to Admit Stat 04/19/21 19:03 Consult Oncology Routine Consult Pulmonology Routine 04/20/21 00:10 Consult Orthopedic Surgery Stat 04/20/21 02:01 Burn CD for patient Routine Ordered Studies 04/19/21 14:58 CT angio abdomen pelvis w con Stat CT angio chest dissec wo/w con Stat 04/19/21 18:03 US venous doppler LE BI Urgent 04/19/21 18:06 MR thoracic spine wo/w con Urgent Hospital Course (1) Spinal cord mass: 85yo male with COPD with chronic respiratory failure, HTN, CKD3, DM2, hypothyroidism, and BPH presents with a few-month history of progressive back pain, weight loss, and a two-week history of worsening BL LE pain and weakness with ambulatory dysfunction. Imaging revealed a 15.9cm x 6.5cm x 7.4cm prevertebral mass with significant circumferential narrowing of the thecal sac at the epidural level concerning for spinal cord compression. Imaging also revealed masses of the mediastinum and liver. Lastly, a right-sided pulmonary embolism was incidentally found on imaging. Discussed with [facility] neurosurgeon (Dr. Post) who recommended transfer to [facility]. Imaging results and goals of care discussed with patient and patient's ; patient would like to pursue transfer to [facility]. Prevertebral mass with spinal cord compression, weakness, ambulatory dysfunction Transferring patient to [facility] Decadron 4mg IV q6h Complete bed rest Pain control with morphine 2mg IV q4h prn, tylenol 1g tid scheduled, and lidocaine patch Pulmonary embolism Patient is hemodynamically stable and maintaining adequate oxygen saturations Tachycardic to 110's but without SOB Continue heparin gtt Ground ACLS transport to facilitate heparin drip Chronic respiratory failure, COPD On 3L oxygen at home day and night Minimal end-expiratory wheezes on exam but no worse than baseline, per patient Maintaining adequate saturation at this time Continue supplemental oxygen - 3L via NC Continue anoro ellipta, albuterol 2puff qidr Mediastinal mass, liver mass Further workup per [facility] CKD3 Baseline creatinine clearance ~30 Gentle IVF given contrast administered earlier (NSS @ 75mL/hr) Hypertension Continue diltiazem 240mg PO qAM Hyponatremia Very mild (133 on admission) Appears to be patient's baseline, has been at this level since 2019 Further workup per [facility] DM2 A1c 6.2% earlier this year No apparent need for insulin at this time Continue BSG checks achs, continue DM2 diet Hypothyroidism TSH 2.8 (02/2021) Continue synthroid 100mcg qqd BPH Continue doxazosin 2mg PO qhs Continue finasteride 5mg PO qAM (2) Pulmonary emboli: (3) Weakness: (4) Severe back pain: (5) Mediastinal mass: (6) Liver mass: (7) Hypothyroidism: (8) Hyponatremia: (9) Hypertension: (10) COPD (chronic obstructive pulmonary disease): (11) Controlled type 2 diabetes mellitus with microalbuminuria: (12) CKD (chronic kidney disease) stage 3, GFR 30-59 ml/min: (13) Chronic respiratory failure with hypoxia: (14) BPH (benign prostatic hyperplasia): Total Time Total Time Spent Total Time Spent (In Minutes): see attending documentation Discharge Plan Discharge Items Patient Disposition: Transfer Acute Care Hospital Reason For Visit: ACUTE PES; MEDIASTINAL & LIVER MASSES Discharge Diagnosis: Prevertebral mass with spinal cord compression, mediastinal mass, liver mass, pulmonary embolism Activity: Per Instructions section Non-emergency contact: Primary Care Provider Call non-emergency contact if: your symptoms worsen and your pain is not controlled Follow-up/Referrals: Kt Valerio III, MD [Primary Care Provider] - Diet: Carb Consistent or DM2 Addtl Attending Provider Instructions: 85yo male with COPD with chronic respiratory failure, HTN, CKD3, DM2, hypothyroidism, and BPH presents with a few-month history of progressive back pain, weight loss, and a two-week history of worsening BL LE pain and weakness with ambulatory dysfunction. Imaging revealed a 15.9cm x 6.5cm x 7.4cm prevertebral mass with significant circumferential narrowing of the thecal sac at the epidural level concerning for spinal cord compression. Imaging also revealed masses of the mediastinum and liver. Lastly, a right-sided pulmonary embolism was incidentally found on imaging. Discussed with [facility] neurosurgeon (Dr. Post) who recommended transfer to [facility]. Imaging results and goals of care discussed with patient and patient's ; patient would like to pursue transfer to [facility]. Prevertebral mass with spinal cord compression, weakness, ambulatory dysfunction Transferring patient to [facility] Decadron 4mg IV q6h Complete bed rest Pain control with morphine 2mg IV q4h prn, tylenol 1g tid scheduled, and lidocaine patch Pulmonary embolism Patient is hemodynamically stable and maintaining adequate oxygen saturations Tachycardic to 110's but without SOB Continue heparin gtt Ground ACLS transport to facilitate heparin drip Chronic respiratory failure, COPD On 3L oxygen at home day and night Minimal end-expiratory wheezes on exam but no worse than baseline, per patient Maintaining adequate saturation at this time Continue supplemental oxygen - 3L via NC Continue anoro ellipta, albuterol 2puff qidr Mediastinal mass, liver mass Further workup per [facility] CKD3 Baseline creatinine clearance ~30 Gentle IVF given contrast administered earlier (NSS @ 75mL/hr) Hypertension Continue diltiazem 240mg PO qAM Hyponatremia Very mild (133 on admission) Appears to be patient's baseline, has been at this level since 2019 Further workup per [facility] DM2 A1c 6.2% earlier this year No apparent need for insulin at this time Continue BSG checks achs, continue DM2 diet Hypothyroidism TSH 2.8 (02/2021) Continue synthroid 100mcg qqd BPH Continue doxazosin 2mg PO qhs Continue finasteride 5mg PO qAM Pending Studies at Discharge: No Stand-Alone Forms: My [facility] Skilled Items Patient informed of condition?: Yes DNR: No Discharge Level of Care: Other Communicable Disease: No Discharge Prognosis: Stable Lines: Peripheral IV Urinary Catheter: No Medications and DC Order Prescriptions: New morphine 2 mg/mL Syringe 2 mg IV Q4H PRN1 Days Qty: 0 RF: 0 acetaminophen [Tylenol Extra Strength] 500 mg Tablet 1,000 mg PO TID 1 Days Qty: 6 RF: 0 Arnuity Ellipta 100 mcg/actuation Blister With Device 1 puff inhalation DAILY 1 Days Qty: 0 RF: 0 Anoro Ellipta 62.5-25 mcg/actuation Blister With Device 1 puff inhalation DAILY 1 Days Qty: 0 RF: 0 Continued albuterol sulfate [ProAir HFA] 90 mcg/actuation HFA aerosol inhaler 2 puff INH QID PRN (Reason: shortness of breath or wheezing) Qty: 18 RF: 3 diclofenac sodium 1 % gel 2 g topical QID RF: 0 docusate sodium 100 mg tablet 100 mg PO BID RF: 0 doxazosin 2 mg tablet 2 mg PO HS Qty: 90 RF: 1 Rocklatan 0.02-0.005 % Drops 1 drp OPHTHALMIC (EYE) HS RF: 0 Simbrinza 1-0.2 % Drops,Suspension 1 drp OPHTHALMIC (EYE) BID RF: 0 cyanocobalamin (vitamin B-12) 500 mcg Tablet 1,000 mcg PO QAM 30 Days Qty: 60 RF: 3 Certavite-Antioxidant 18-400 mg-mcg Tablet 1 tab PO QAM 30 Days Qty: 30 RF: 3 sennosides [senna] 8.6 mg Tablet 17.2 mg PO QAM RF: 0 lisinopril 20 mg tablet 20 mg PO QAM RF: 0 levothyroxine 100 mcg tablet 100 mcg PO DAILYBB RF: 0 diltiazem HCl 120 mg capsule,extended release 24hr 240 mg PO QAM RF: 0 finasteride 5 mg tablet 5 mg PO QAM RF: 0 Trelegy Ellipta 100-62.5-25 mcg blister with device 1 inh INH DAILYBB RF: 0 ibuprofen 200 mg Tablet 600 mg PO Q6H PRN (Reason: Pain) RF: 0 No Action (DME) CPAP Supplies Misc See Rx Instructions .ROUTE .MEDSUPPLY Qty: 1 RF: 0 (DME) Wheelchair (Manual) Device See Rx Instructions .Route Qty: 1 RF: 0 (DME) CPAP Machine Misc See Dose Instructions .ROUTE .MEDSUPPLY Qty: 1 RF: 0 Discharge Orders: Discharge Order (Routine); Ordered 04/20/21 Ordered By: Vinnie Villalba Admission Data Admit Date/Time: 04/19/21 18:03 Attending Provider: Jeff Prado Admit Provider: Jeff Prado Primary Care Provider: Kt Valerio III Other Providers: Jeff Prado ; Rudy Rodriguez V. ; Bhavna Urbina ; Kimberly Foster Resident Activity Tracking Resident Involvement: Resident Care Provided Care Provided: Adult Hospital Medicine
[2021-04-20] MEDS: MoRPHine SULFATE 2 MG/ML CARP IV PRN (02:44)
[2021-04-20] MEDS ORDERED: LEVOTHYROXINE SODIUM 100 MCG TABLET PO SCH (06:30)
[2021-04-20] MEDS ORDERED: NON-FORMULARY MEDICATION (Fluticasone-Umeclidin-Vilanter [Trelegy Ellipta] 100-62.5-25 mcg INH SCH (06:30)
--- NOTE | 2021-04-20 06:43 | Ultrasound Report ---
BILATERAL LOWER EXTREMITY VENOUS DOPPLER HISTORY: Acute pain and swelling of the lower legs acute PEs, edema of legs COMPARISON STUDY: 03/01/2021 FINDINGS: Acute nonocclusive deep venous thrombus noted within the right distal popliteal vein with o cclusive deep venous thrombus within the posterior tibial and peroneal veins. No additional deep veno us thrombosis identified within the right or left lower extremity. Occlusive superficial venous throm bus is noted within one of the duplicated superficial veins within the popliteal fossa. IMPRESSION: 1. Acute deep and superficial venous thrombus of the right lower extremity as above. 2. No sonographic evidence of left lower extremity deep venous thrombus. ACT 112: Negative or not required by law. Electronically signed by: Sukumar Quick M.D. 04/20/2021 6:42 AM
--- NOTE | 2021-04-20 07:37 | Magnetic Resonance Report ---
MRI OF THE THORACIC SPINE WITH AND WITHOUT CONTRAST CLINICAL HISTORY: ?mediastinal mass vs mass along t-spine? COMPARISON: Thoracic spine CT T April 19, 2021. Thoracic spine radiographs April 13, 2021. TECHNIQUE: Utilizing a 1.5 Prema magnet and dedicated coil, multiplanar, multiecho imaging of the th oracic spine was performed before and after the intravenous administration of 8 cc. FINDINGS: Alignment of the thoracic spine is anatomic. Note is made of a large left paravertebral het erogeneously enhancing mass centered at the T6-T7 level. Foci of suspected necrosis within this lesio n are present. This mass measures approximately 10.2 x 9 x 8.4 cm. This mass encases the adjacent jess cending thoracic aorta. There is extensive bony involvement of T6 and T7 as well as extension into th e T8 vertebra. There is extensive epidural extension of this enhancing mass. This mass encases the th oracic cord extending from the T6-T8 levels. There is severe central canal narrowing with cord compre ssion. No definite thoracic cord signal abnormality is slight identified. Vertebral body heights are maintained. No additional masses are identified on this examination. IMPRESSION: Large left paravertebral heterogeneously enhancing mass centered at the T6-T7 level which measures ap proximately 10.2 x 9 x 8.4 cm and encases the descending thoracic aorta. Associated involvement of th e T6, T7 and T8 vertebra and extensive epidural extension of tumor with severe central canal stenosis and cord compression from the T6-T8 levels. Neurosurgical consultation is recommended. This is consi stent with a neoplastic process and differential considerations include metastatic disease and lympho ma. ACT 112: Negative or not required by law. Electronically signed by: Matias Natarajan M.D. 04/20/2021 7:35 AM
[2021-04-20] MEDS ORDERED: UMECLIDINIUM/VILANTEROL 62.5/25MCG 7 PUFFS/INHALER INH SCH (09:00)
[2021-04-20] MEDS ORDERED: CYANOCOBALAMIN 500 MCG TABLET (VITAMIN B-12) PO SCH (09:00)
[2021-04-20] MEDS ORDERED: CEROVITE ADV FORMULA TAB PO SCH (09:00)
[2021-04-20] MEDS ORDERED: FINASTERIDE 5 MG TAB PO SCH (09:00)
[2021-04-20] MEDS ORDERED: SENNA 8.6 MG TAB PO SCH (09:00)
[2021-04-20] MEDS ORDERED: FLUTICASONE FUROATE 100MCG 14 PUFFS/INHALER INH SCH (09:00)
[2021-04-20] MEDS ORDERED: dilTIAZem HCL 240 MG CAPCR PO SCH (09:00)
[2021-04-20] MEDS ORDERED: ALBUTEROL HFA 8 GM INHALER INH SCH (20:00)
== END 2021-04-20 02:56 | disposition short-term general hospital (02) | DRG 91 ==
LOC: ED 13:44 → 2E 18:03

== ENCOUNTER 2021-05-15 12:18 | Inpatient (IN) ==
--- NOTE | 2021-05-15 13:26 | XRay Report ---
SINGLE VIEW CHEST CLINICAL HISTORY: Dyspnea. FINDINGS: An AP, portable, upright chest radiograph is compared to chest x-ray and chest CT dated 04/16. A right-sided central venous catheter is unchanged in position. The heart is top normal for p rojection noting atherosclerotic calcification of the thoracic aorta. There is pulmonary vascular con gestion. Emphysema and chronic interstitial thickening is similar to previous. There are layering ple ural effusions with bibasilar consolidation. No pneumothorax is seen. The skeletal structures are ost eopenic. The bony thorax is grossly intact. Fusion hardware is noted in the thoracic spine. IMPRESSION: 1. Cardiomegaly and emphysema with evidence of fluid overload/congestive failure. 2. Layering pleural effusions with bibasilar consolidation. ACT 112: Negative or not required by law. Electronically signed by: Red Matamoros M.D. 05/15/2021 1:24 PM
[2021-05-15 13:37] LABS: Hematocrit (blood only) 22.6 % (42-52); Hemoglobin 7.6 g/dL (14.0-18.0); Mean Corpuscular Hemoglobin 32.9 pg (25-34); Mean Corpuscular Hgb Conc 33.6 g/dL (32-36); Mean Corpuscular Volume 97.8 fL (80-100); Mean Platelet Volume 9.6 fL (7.4-10.4); Platelet Count 170 K/uL (130-400); RDW Coefficient of Variation 20.3 % (11.5-14.5); RDW Standard Deviation 71.4 fL (36.4-46.3); Red Blood Count 2.31 M/uL (4.7-6.1); White Blood Count 7.05 K/uL (4.8-10.8)
[2021-05-15 13:55] LABS: Alanine Aminotransferase 16 U/L (12-78); Albumin Level 2.1 gm/dl (3.4-5.0); Aspartate Aminotransferase 9 U/L (15-37); BUN Creatinine Ratio 38.8 (10-20); Blood Urea Nitrogen 61 mg/dl (7-18); Calcium 8.4 mg/dl (8.5-10.1); Carbon Dioxide 27 mmol/L (21-32); Chloride 104 mmol/L (98-107); Creatinine Clr Calc Pharmacy 36.2 ml/min; Est GFR (African American) 45.9 ml/min; Est GFR (Non-African American) 39.6 ml/min; Glucose 153 mg/dl (70-99); INR 1.2 (0.9-1.1); Magnesium 1.7 mg/dl (1.8-2.4); Partial Thromboplastin Ratio 1.4; Partial Thromboplastin Time 35.8 Seconds (21.0-31.0); Potassium 4.6 mmol/L (3.5-5.1); Prothrombin Time 12.1 Seconds (9.0-12.0); Sodium 135 mmol/L (136-145)
[2021-05-15 13:59] LABS: Albumin Globulin Ratio 0.8 (0.9-2); Alkaline Phosphatase 133 U/L (45-117); Bilirubin,Total 0.4 mg/dl (0.2-1); Globulin 2.6 gm/dl (2.5-4.0); Total Protein 4.7 gm/dl (6.4-8.2); Troponin I < 0.015 ng/ml (0-0.045)
[2021-05-15] MEDS ORDERED: SODIUM CHLORIDE 0.9% 500 ML IV ONE (14:08)
[2021-05-15] MEDS ORDERED: dilTIAZem HCl 5 MG/ML 5 ML VIAL IV STA (14:10)
[2021-05-15 14:12] LABS: Anisocytosis Present; Basophils # (auto) 0.01 K/uL (0-0.2); Basophils % (auto) 0.1 %; Dohle Bodies 2+; Eosinophils % (auto) 2.8 %; Immature Granulocytes # (auto) 0.56 K/uL (0.00-0.02); Immature Granulocytes % (auto) 7.9 %; Lymphocytes # (auto) 0.51 K/uL (1.2-3.4); Lymphocytes % (auto) 7.2 %; Monocytes # (auto) 1.21 K/uL (0.11-0.59); Monocytes % (auto) 17.2 %; Neutrophils # (auto) 4.56 K/uL (1.4-6.5); Neutrophils % (auto) 64.8 %; Toxic Granulation 2+
[2021-05-15] MEDS ORDERED: oxyCODONE HCL IR 5 MG TAB (IMMEDIATE RELEASE) PO STA (16:17)
[2021-05-15] MEDS ORDERED: SODIUM CHLORIDE 0.9% 250 ML IV PRN (16:18)
[2021-05-15] MEDS ORDERED: SODIUM CHLORIDE 0.9% 250 ML IV ONE (17:28)
[2021-05-15] MEDS ORDERED: MAGNESIUM SULFATE / D5W 1 GM/100 ML BAG IV STA (17:31)
[2021-05-15] MEDS ORDERED: METOPROLOL TARTRATE 1 MG/ML VIAL IV PRN (18:50)
--- NOTE | 2021-05-15 18:55 | History & Physical Report ---
Date of Service May 15, 2021 Assessment & Plan (1) SOB (shortness of breath): Plan: Mr. 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 - Appears multifactorial - A Fib RVR vs Anemia vs Volume Overload - Appears A Fib may have been a new diagnosis when he presented on 13 May - is on Diltiazem, Metoprolol, and AC - Does have anemia which appears chemo-induced; no signs of active bleeding while on AC - had chemo earlier this month and Neulasta prior to D/C from [facility] - CXR does reveal volume overlead; albumin is low and does appear to be third spacing - Initially presented with BP in 90s systolic - has improved with blood transfusion but may benefit from dose of Lasix to prevent further overload; patient is laying flat on his bed, sleeping, and snoring and reports no orthopnea or SOB and currently on his baseline 3L NC - CXR today reports findings of layering pleural effusion with consolidation - no consoldiations of CTA on 13 May - is afebrile, no leukocytosis, not favoring a pneumonia picture - may have some compressive atelectasis or possibility of pulmonary infarct given PEs - will monitor for need to add Abx coverage (2) Atrial fibrillation with rapid ventricular response: Plan: - Appears as a new diagnosis on 13 May - currently on treatment - Presented again with A Fib - uncertain if he converted out on the or has been maintaining this rhythm; given his PEs, COPD, and metastatic CA likely could have induced A Fib - Will monitor HR with blood transfusion and improvement in BP to see if the HR controls - Metoprolol IV PRN for tachycardia - Again may need to utilize dose of Lasix depending on volume status - Echo from January 2021 - grade I diastolic dysfunction - Repeat Echo - given A Fib, PEs, and CA may have some changes (3) Anemia associated with chemotherapy: Plan: - Hgb was 6.8 on 13 May and transfused 1 unit; Now at 7.2 but transfusing in ED x 1 unit - Continue to monitor labs - Last chemo earlier this month (4) B-cell lymphoma: Plan: - Recent diagnosis this month; had first dose of Chemo and Neulasta in [facility] - On Cipro and Acyclovir - not exactly sure if this is preventative? will need to F/U with [facility] - Will consult Dr. Foote for discussion with anemia and lymphoma (5) Pulmonary embolism: Plan: - Recent Dx earlier this month and recent CTA revealed some improvement in PEs - Continue Eliquis as no signs of active blood loss and anemia appears chemo- induced - No indication to re-CTA as he is on treatment; utilizing his baseline O2; and reported improvement in SOB in ED (6) COPD (chronic obstructive pulmonary disease): Plan: - Does not appear to be in exacerbation at this time; no wheezing appreciated on examination - Continue PRN inhaler (7) Hypertension: Plan: - Improving since transfusion but was in 90s systolic - Will hold Lisinopril 10 mg daily in favor of rate controlling options until BP improves and will monitor (8) Controlled type 2 diabetes mellitus with chronic kidney disease: Plan: - Does not appear on active treatment; will initially monitor BSGs -- can add insulin coverage if it appears needed but will hold at this time - A1c 6.2 on last check (9) Hypothyroidism: Plan: - TSH was WNL on last check but will recheck in AM given new A Fib - Continue Levothyroxine 100 mcg daily (10) BPH (benign prostatic hyperplasia): Plan: - Continue Finasteride 5 mg daily and Doxazosin 2 mg HS (11) CKD (chronic kidney disease) stage 3, GFR 30-59 ml/min: Plan: - Appears baseline is around 1.4-1.6 - Avoid nephrotoxins when able and will monitor with AM labs (12) Obstructive sleep apnea of adult: Plan: - Pt does not utilize CPAP History of Present Illness Chief Complaint: SOB Primary Care Provider: NO PCP Mr. 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 Pt was admitted to [facility] on April 20 due to bilateral lower extremity weakness due to mass compression on spinal cord. He was also found to have PEs and a liver mass. He underwent surgery on 21 April for the spinal cord mass. 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 He underwent initial chemotherapy and Neulasta treatment while at [facility]. states he was in the hospital approx. 2 weeks. He has been sent over from [facility] multiple times due to SOB and may be too aggressive of rehab for him. On 13 May, he was sent over and found to be in A Fib RVR and a Hgb of 6.8. He was transfused 1 unit and the heart rates resolved. He was sent back to [facility] that night. states he had a very good day yesterday, improved appetite and energy. However, patient was reporting SOB today. Per report, facility wanted to have new PEs ruled out. Patient is resting laying predominantly flat in the bad. He had a pain medication and is sleepy but easily awakens and answers questions appropriately. He reports his SOB feels better since arrival. Pt did present in A Fib with RVR and possibly the cause of his SOB. Hgb was 7.6 on labs and a receiving 1 unit PRBC currently. CTA on 13 May revealed slight improvement in bilateral PEs with no new ones identified and pleural effusions. CXR today reveals evidence of fluid overload and congestive failure and layering pleural effusion with bibasilar consolidation. Is currently on anticoagulation with Eliquis. No signs of active bleeding. Allergies Allergy/AdvReac Type Severity Reaction Status Date / Time No Known Allergies Allergy Verified 05/15/21 15:20 Home Medications Medication Instructions Recorded Confirmed Type CPAP Machine #1 ea 06/14/19 04/09/21 Rx CPAP Supplies #1 ea 03/28/20 04/09/21 Rx cyanocobalamin (vitamin B-12) 500 1,000 mcg PO QAM 30 Days #60 tab 03/05/21 05/15/21 Rx mcg tablet diclofenac sodium 1 % topical gel 2 g TOPICAL QID PRN 03/15/21 05/15/21 History docusate sodium 100 mg tablet 100 mg PO BID 03/15/21 05/15/21 History doxazosin 2 mg tablet 2 mg PO HS #90 tab 03/15/21 05/15/21 Rx Wheelchair (Manual) #1 ea 04/17/21 Rx finasteride 5 mg tablet 5 mg PO QAM 04/19/21 05/15/21 History levothyroxine 100 mcg tablet 100 mcg PO DAILYBB 04/19/21 05/15/21 History acyclovir 400 mg tablet 400 mg PO BID 05/13/21 05/15/21 History allopurinol 300 mg tablet 300 mg PO DAILY 05/13/21 05/15/21 History apixaban 5 mg tablet (Eliquis) 5 mg PO BID 05/13/21 05/15/21 History brimonidine 0.2 % eye drops 1 drp OPL Q12 05/13/21 05/15/21 History brinzolamide 1 % eye 1 drp OPL Q12 05/13/21 05/15/21 History drops,suspension ciprofloxacin HCl 250 mg tablet 250 mg PO Q12H 05/13/21 05/15/21 History fluticasone fur. 100 mcg-umeclid 1 inh INHALATION DAILY 05/13/21 05/15/21 History 62.5 mcg-vilant 25 mcg inhalat.powder (Trelegy Ellipta) Albuterol Cfc Free 90 Mcg/Inh 2 puff INHALATION Q4H PRN 05/15/21 05/15/21 History acetaminophen 325 mg tablet 650 mg PO Q4H PRN 05/15/21 05/15/21 History (Tylenol) bisacodyl 10 mg rectal suppository 10 mg AL DAILY PRN 05/15/21 05/15/21 History diltiazem HCl 240 mg capsule,24 240 mg PO DAILY 05/15/21 05/15/21 History hr,extended release lisinopril 10 mg tablet 10 mg PO DAILY 05/15/21 05/15/21 History magnesium hydroxide 400 mg/5 mL 30 ml PO DAILY PRN 05/15/21 05/15/21 History oral suspension (Milk of Magnesia) metoprolol succinate 25 mg 25 mg PO DAILY 05/15/21 05/15/21 History tablet,extended release 24 hr naloxone 4 mg/actuation nasal 4 mg INTRANASAL ONCE PRN 05/15/21 05/15/21 History spray (Narcan) netarsudil 0.02 %-latanoprost 1 drp OPB PM 05/15/21 05/15/21 History 0.005 % eye drops (Rocklatan) oxycodone 5 mg tablet 7.5 mg PO Q6H PRN 05/15/21 05/15/21 History polyethylene glycol 3350 17 gram 17 g PO DAILY PRN 05/15/21 05/15/21 History oral powder packet (Miralax) sennosides 8.6 mg-docusate sodium 1 tab-cap PO QDL PRN 05/15/21 05/15/21 History 50 mg tablet (Senokot-S) sodium chloride 0.9 % (flush) 10 ml IV Q12H 05/15/21 05/15/21 History (Normal Saline Flush) sodium phosphates 19 gram-7 133 ml AL DAILY PRN 05/15/21 05/15/21 History gram/118 mL enema (Fleet Enema) Past Med/Surg History Medical History Acute hyponatremia Chronic respiratory failure with hypoxia 3 L NC O2 continuously Constipation Controlled type 2 diabetes mellitus with chronic kidney disease COPD (chronic obstructive pulmonary disease) Diverticulosis Epistaxis Hyperlipidemia Hypertension Hypothyroidism Obstructive sleep apnea of adult on CPAP, but noncompliant with it Pneumonia Surgical History H/O cataract extraction H/O colonoscopy Family History Father COPD (chronic obstructive pulmonary disease) Mother Hypertension Brother Dementia Daughter Breast cancer Other Heart disease Denies family history of Ovarian cancer Prostate cancer Myocardial infarction Colorectal cancer Social History Smoking Status: Former smoker Tobacco Type: Cigarettes Age Started Using Tobacco: 16; Age Quit Using Tobacco: 40; packs per day: 1; Years Smoked: 25; Second Hand Exposure: Yes; Do You Dip or Chew Tobacco: No; Hx Alcohol Use: No Hx Substance Use: No Preferred Language: Japanese Communication Ability: Effective Hearing Ability: Normal Safety Sitter Required: No Beliefs That Will Affect Care: None marital status: Current Living Situation: Rehab Current Living Situation Comment: Lives at [facility] current occupational status: retired How many Children do You have: 2 Other Information That Helps Us Care for You: No other: Universal Devices Joyce Feels Safe at Home: Yes Safety Concerns: Feels Safe At This Time Dental Care, Regularly: Yes Physical Activity Frequency: Does not Exercise Seatbelt Use: always Sunscreen Use: No Assistive Devices: CPAP, Oxygen - Continuous, Walker and Wheelchair Review of Systems Review of Systems: REVIEW OF SYSTEMS General/Constitutional: + long standing weakness and fatigue over past month; Denies fever/chills ENT: Denies visual changes, nasal drainage, hearing loss, sore throat, trouble swallowing Cardiovascular: Denies chest pain, palpitations, edema Respiratory: + SOB (now resolved); Denies cough, sputum, wheezing, orthopnea GI: Denies nausea, vomiting, abdominal pain, constipation, diarrhea, melena/hematochezia : Denies dysuria, frequency, hematuria Musculoskeletal: + back pain (currently controlled with pain med in ER); Denies joint/muscle aches Neurologic: Denies dizziness/lightheadedness Hematologic/Lymphatic: Denies bleeding/clotting abnormalities Skin: Denies rash, itch, new skin changes, easy bruising Physical Exam Physical Exam: PHYSICAL EXAM General Appearance: Chronically ill appearing male in NAD who is A&O x 3; had a pain medication so falls asleep but wakes up easily HEENT: Head is normocephalic/atraumatic; EOMI; PERRLA; Hearing grossly intact; Mucous membranes moist; Pharynx negative for exudate/lesions Neck: Supple; Trachea midline; Neg JVD; Neg lymphadenopathy Heart: RRR with no M/G/R Lungs: CTA in all lung palma bilaterally; Respirations unlabored; Neg accessory muscle use Abdomen: Soft, non-tender, non-distended; Positive BS x 4 quadrants; Neg organomegaly Extremities: Capillary refill < 2 seconds; Neg cyanosis or edema Neurological: Speech clear; Gross motor/sensory function intact; Neg focal neurologic deficits Psychiatric: Appropriate mood/affect Skin: Normal Color; Warm/Dry; superficial abrasion to R knee without signs of erythema, drainage, or bleed Results & Data Results & Data ([facility]) Vital Signs (Past 12 Hours) Vital Signs Temp Pulse Resp BP Pulse Ox 05/15/21 18:45 36.9 C 98 H 16 132/66 98 05/15/21 18:31 37.1 C 94 H 16 111/60 99 05/15/21 18:18 37.1 C 102 H 16 131/69 98 05/15/21 16:30 91 H 21 92/55 L 99 05/15/21 16:00 87 27 H 102/56 L 100 05/15/21 15:30 92 H 21 101/62 05/15/21 15:00 108 H 20 103/54 L 96 05/15/21 14:30 100 H 19 92/60 L 98 05/15/21 14:00 104 H 20 114/61 99 05/15/21 13:32 108 H 24 100 05/15/21 13:30 106 H 23 111/62 100 05/15/21 13:00 102 H 20 101/63 99 05/15/21 12:35 36.7 C 113 H 20 106/59 L 97 05/15/21 12:30 112 H 24 108/58 L 100 Diagnostic Findings Chest X-Ray 05/15/21 13:02 SINGLE VIEW CHEST CLINICAL HISTORY: Dyspnea. FINDINGS: An AP, portable, upright chest radiograph is compared to chest x-ray and chest CT dated 05/13/2021. A right-sided central venous catheter is unchanged in position. The heart is top normal for projection noting atherosclerotic calcification of the thoracic aorta. There is pulmonary vascular congestion. Emphysema and chronic interstitial thickening is similar to previous. There are layering pleural effusions with bibasilar consolidation. No pneumothorax is seen. The skeletal structures are osteopenic. The bony thorax is grossly intact. Fusion hardware is noted in the thoracic spine. IMPRESSION: 1. Cardiomegaly and emphysema with evidence of fluid overload/congestive failure. 2. Layering pleural effusions with bibasilar consolidation. ACT 112: Negative or not required by law. Electronically signed by: Red Matamoros M.D. 05/15/2021 1:24 PM Code Status & VTE Plan Code Status Do Not Resuscitate VTE Prophylaxis Plan VTE Prophylaxis will be ordered: Yes Supervising Physician Co-Signing Physician Notes Discussed with ARABELLA, reviewed her documentation. Agree with note above. Patient was sent over from [facility] 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 He was noted to be anemic on presentation and was transfused 1 unit packed red blood cells. Plan to keep the patient while transfusing. Will need repeat PT/OT evaluation. Consideration towards palliative care considering patient's advanced condition. I suspect he may not be able to handle intense therapy at [facility] and alternative arrangements may be made depending on progress. PG Care Time/CCT Total # of Minutes Spent Total Time Spent with Patient: Total time spent is greater than 50% in coordination of care (as documented) at patient's floor/unit and/or counseling patient: Coding Level of Care Code 59140 Initial Inpt Care Lvl 3 Diagnoses Atrial fibrillation with rapid ventricular response I48.91 Anemia associated with chemotherapy D64.81; T45.1X5A Obstructive sleep apnea of adult G47.33 COPD (chronic obstructive pulmonary disease) J44.9 COPD type: unspecified COPD Hypertension I10 Controlled type 2 diabetes mellitus with chronic kidney disease E11.22 Hypothyroidism E03.9 BPH (benign prostatic hyperplasia) N40.0 CKD (chronic kidney disease) stage 3, GFR 30-59 ml/min N18.30 Pulmonary embolism I26.99 Acute cor pulmonale presence: unspecified Chronicity: unspecified Pulmonary embolism type: unspecified B-cell lymphoma C85.10 B-cell lymphoma type: unspecified B-cell Lymphoma site: unspecified region SOB (shortness of breath) R06.02 (1) B-cell lymphoma B-cell lymphoma type: unspecified B-cell Lymphoma site: unspecified region Qualified Code(s): C85.10 - Unspecified B-cell lymphoma, unspecified site (2) COPD (chronic obstructive pulmonary disease) COPD type: unspecified COPD Qualified Code(s): J44.9 - Chronic obstructive pulmonary disease, unspecified (3) Pulmonary embolism Acute cor pulmonale presence: unspecified Chronicity: unspecified Pulmonary embolism type: unspecified Qualified Code(s): I26.99 - Other pulmonary embolism without acute cor pulmonale
[2021-05-15] MEDS ORDERED: ACETAMINOPHEN 325 MG TAB PO PRN (20:47)
[2021-05-15] MEDS ORDERED: DICLOFENAC SOD 1% GEL 100 GM TUBE EXT PRN (20:47)
[2021-05-15] MEDS ORDERED: MAGNESIUM HYDROXIDE SUSP 30 ML UDC PO PRN (20:47)
[2021-05-15] MEDS ORDERED: GLUCOSE 40% GEL 15 GM TUBE PO PRN (20:47)
[2021-05-15] MEDS ORDERED: GLUCAGON FOR INJ 1 MG VIAL SQ PRN (20:47)
[2021-05-15] MEDS ORDERED: POLYETHYLENE (MIRALAX) 17 GM PACK PO PRN (20:47)
[2021-05-15] MEDS ORDERED: CARBOHYDRATES FOR HYPOGLYCEMIA PO PRN (20:47)
[2021-05-15] MEDS ORDERED: GLUCOSE 10 TABS/TUBE PO PRN (20:47)
[2021-05-15] MEDS ORDERED: DEXTROSE 50% 50 ML SYRINGE IV PRN (20:47)
[2021-05-15] MEDS ORDERED: ONDANSETRON INJ 2 MG/ML 2 ML VIAL IV PRN (20:47)
[2021-05-15] MEDS ORDERED: bisacodyL 10 MG SUPP PR PRN (20:47)
[2021-05-15] MEDS ORDERED: DOCUSATE SODIUM/SENNA 50/8.6MG TAB PO PRN (20:47)
[2021-05-15] MEDS ORDERED: ALBUTEROL HFA 8 GM INHALER INH PRN (20:58)
[2021-05-15] MEDS ORDERED: APIXABAN 2.5 MG TAB PO ONE (21:30)
--- NOTE | 2021-05-15 21:42 | Emergency Department Note ---
History of Present Illness General Chief complaint: Referred by Doctor Stated complaint: EVAL. FOR PE Time Seen by Provider: 05/15/21 13:00 Source: patient, family ( at the bedside), RN notes reviewed and old records reviewed Mode of arrival: EMS Limitations: altered mental status and physical limitation History of Present Illness Provider complaint: Shortness of breath, lymphoma, possible evaluation for PE Maximum Pain Intensity: 6 This patient is an 86-year-old male who presents emergency department with complaints of shortness of breath from inpatient rehab at [facility]. He always wears O2 at 2-3 L/min and feels SOB despite this today. Patient was recently diagnosed with lymphoma and had a large resection off of the spinal column. Patient is also noted to have a large mass around the thoracic aorta. He has a history of atrial fibrillation and is anticoagulated. Patient was in this emergency department 2 days ago and transfused for anemia. Patient denies any chest pain, abdominal pain, vomiting or diarrhea. He denies any blood in the stools. He denies having any fevers or significant cough. Pt's states he is in a wheelchair as he has been unable to move his legs since the spine tumor was diagnosed. Pt is scheduled to see oncology next week. Home Medications Medication Instructions Recorded Confirmed Type CPAP Machine #1 ea 06/14/19 04/09/21 Rx CPAP Supplies #1 ea 03/28/20 04/09/21 Rx cyanocobalamin (vitamin B-12) 500 1,000 mcg PO QAM 30 Days #60 tab 03/05/21 05/15/21 Rx mcg tablet diclofenac sodium 1 % topical gel 2 g TOPICAL QID PRN 03/15/21 05/15/21 History docusate sodium 100 mg tablet 100 mg PO BID 03/15/21 05/15/21 History doxazosin 2 mg tablet 2 mg PO HS #90 tab 03/15/21 05/15/21 Rx Wheelchair (Manual) #1 ea 04/17/21 Rx finasteride 5 mg tablet 5 mg PO QAM 04/19/21 05/15/21 History levothyroxine 100 mcg tablet 100 mcg PO DAILYBB 04/19/21 05/15/21 History acyclovir 400 mg tablet 400 mg PO BID 05/13/21 05/15/21 History allopurinol 300 mg tablet 300 mg PO DAILY 05/13/21 05/15/21 History apixaban 5 mg tablet (Eliquis) 5 mg PO BID 05/13/21 05/15/21 History brimonidine 0.2 % eye drops 1 drp OPL Q12 05/13/21 05/15/21 History brinzolamide 1 % eye 1 drp OPL Q12 05/13/21 05/15/21 History drops,suspension ciprofloxacin HCl 250 mg tablet 250 mg PO Q12H 05/13/21 05/15/21 History fluticasone fur. 100 mcg-umeclid 1 inh INHALATION DAILY 05/13/21 05/15/21 History 62.5 mcg-vilant 25 mcg inhalat.powder (Trelegy Ellipta) Albuterol Cfc Free 90 Mcg/Inh 2 puff INHALATION Q4H PRN 05/15/21 05/15/21 History acetaminophen 325 mg tablet 650 mg PO Q4H PRN 05/15/21 05/15/21 History (Tylenol) bisacodyl 10 mg rectal suppository 10 mg MS DAILY PRN 05/15/21 05/15/21 History diltiazem HCl 240 mg capsule,24 240 mg PO DAILY 05/15/21 05/15/21 History hr,extended release lisinopril 10 mg tablet 10 mg PO DAILY 05/15/21 05/15/21 History magnesium hydroxide 400 mg/5 mL 30 ml PO DAILY PRN 05/15/21 05/15/21 History oral suspension (Milk of Magnesia) metoprolol succinate 25 mg 25 mg PO DAILY 05/15/21 05/15/21 History tablet,extended release 24 hr naloxone 4 mg/actuation nasal 4 mg INTRANASAL ONCE PRN 05/15/21 05/15/21 History spray (Narcan) netarsudil 0.02 %-latanoprost 1 drp OPB PM 05/15/21 05/15/21 History 0.005 % eye drops (Rocklatan) oxycodone 5 mg tablet 7.5 mg PO Q6H PRN 05/15/21 05/15/21 History polyethylene glycol 3350 17 gram 17 g PO DAILY PRN 05/15/21 05/15/21 History oral powder packet (Miralax) sennosides 8.6 mg-docusate sodium 1 tab-cap PO QDL PRN 05/15/21 05/15/21 History 50 mg tablet (Senokot-S) sodium chloride 0.9 % (flush) 10 ml IV Q12H 05/15/21 05/15/21 History (Normal Saline Flush) sodium phosphates 19 gram-7 133 ml MS DAILY PRN 05/15/21 05/15/21 History gram/118 mL enema (Fleet Enema) Allergies Allergy/AdvReac Type Severity Reaction Status Date / Time No Known Allergies Allergy Verified 05/15/21 15:20 Past Med/Surg History Medical History Acute hyponatremia Chronic respiratory failure with hypoxia 3 L NC O2 continuously Constipation Controlled type 2 diabetes mellitus with chronic kidney disease COPD (chronic obstructive pulmonary disease) Diverticulosis Epistaxis Hyperlipidemia Hypertension Hypothyroidism Obstructive sleep apnea of adult on CPAP, but noncompliant with it Pneumonia Surgical History H/O cataract extraction H/O colonoscopy Family History Father COPD (chronic obstructive pulmonary disease) Mother Hypertension Brother Dementia Daughter Breast cancer Other Heart disease Denies family history of Ovarian cancer Prostate cancer Myocardial infarction Colorectal cancer Social History Smoking Status: Former smoker Tobacco Type: Cigarettes Age Started Using Tobacco: 16; Age Quit Using Tobacco: 40; packs per day: 1; Years Smoked: 25; Second Hand Exposure: Yes; Do You Dip or Chew Tobacco: No; Hx Alcohol Use: No Hx Substance Use: No Preferred Language: Polish Communication Ability: Effective Hearing Ability: Normal Novelty Maker Required: No Beliefs That Will Affect Care: None marital status: Current Living Situation: Rehab Current Living Situation Comment: Lives at [facility] current occupational status: retired How many Children do You have: 2 Other Information That Helps Us Care for You: No other: JRapid Joyce Feels Safe at Home: Yes Safety Concerns: Feels Safe At This Time Dental Care, Regularly: Yes Physical Activity Frequency: Does not Exercise Seatbelt Use: always Sunscreen Use: No Assistive Devices: CPAP, Oxygen - Continuous, Walker and Wheelchair Review of Systems See HPI for pertinent positives & negatives. and A total of 10 systems reviewed and were otherwise negative Physical Exam Vital Signs Vital Signs - 24 hr 05/15/21 15:30 05/15/21 16:00 05/15/21 16:30 Temperature Temperature Source Pulse Rate 92 H 87 91 H Pulse Rate from SpO2 Sensor 89 91 H Respiratory Rate 21 27 H 21 Blood Pressure 101/62 102/56 L 92/55 L Blood Pressure Mean 75 71 67 Pulse Oximetry 100 99 Oxygen Delivery Method Room Air Room Air Oxygen Flow Rate 05/15/21 17:00 05/15/21 17:30 05/15/21 18:00 Temperature Temperature Source Pulse Rate 87 95 H 100 H Pulse Rate from SpO2 Sensor 88 98 H 100 H Respiratory Rate 13 17 21 Blood Pressure 118/59 L 129/63 106/63 Blood Pressure Mean 78 85 77 Pulse Oximetry 98 99 97 Oxygen Delivery Method Oxygen Flow Rate 05/15/21 18:18 05/15/21 18:30 05/15/21 18:31 Temperature 37.1 C 37.1 C Temperature Source Oral Oral Pulse Rate 102 H 99 H 94 H Pulse Rate from SpO2 Sensor 96 H Respiratory Rate 16 15 16 Blood Pressure 131/69 111/60 111/60 Blood Pressure Mean 89 77 77 Pulse Oximetry 98 98 99 Oxygen Delivery Method Oxygen Flow Rate 3 3 05/15/21 18:45 Temperature 36.9 C Temperature Source Oral Pulse Rate 98 H Pulse Rate from SpO2 Sensor Respiratory Rate 16 Blood Pressure 132/66 Blood Pressure Mean 88 Pulse Oximetry 98 Oxygen Delivery Method Oxygen Flow Rate 3 Vital signs reviewed. General: Chronically ill-appearing 86-year-old male, pale but in no distress. HEENT: Pale conjunctiva, PERRLA, neck supple. Atraumatic. Cardiovascular: Tachycardic, irregular, systolic ejection murmur. Pulmonary: Crackles to the bases bilaterally, normal work of breathing. On nasal cannula oxygen. Abdomen: Soft, nontender, nondistended, positive bowel sounds. Musculoskeletal: Atraumatic, 2+ pitting peripheral edema. Neurologic: Patient awake alert and pleasantly confused, cranial nerves II through XII are grossly intact. Generalized weakness and atrophy to the bilateral lower extremities. Follows commands appropriately. Rectal: Trace guaiac positive brown stool, formed, no external fissure or significant hemorrhoids identified. Skin: Warm, dry, no rash Course Administered Medications Acyclovir (Acyclovir 400 Mg Tab) 400 mg PO BID MARY Stop: 06/14/21 20:59 Last Admin: 05/16/21 08:08 Dose: 400 mg Documented by: [id number] Admin: 05/15/21 21:59 Dose: 400 mg Documented by: [id number] Allopurinol (Allopurinol 300 Mg Tab) 300 mg PO DAILY MARY Stop: 06/15/21 08:59 Last Admin: 05/16/21 08:08 Dose: 300 mg Documented by: [id number] Apixaban (Apixaban 5 Mg Tablet) 5 mg PO BID MARY Stop: 06/15/21 08:59 Last Admin: 05/16/21 09:36 Dose: 5 mg Documented by: [id number] Brimonidine Tartrate (Brimonidine Tartrate 0.2% 5ml) 1 drops OPL Q12H MARY Stop: 06/14/21 20:59 Last Admin: 05/16/21 08:08 Dose: 1 drops Documented by: [id number] Admin: 05/15/21 22:01 Dose: 1 drops Documented by: [id number] Brinzolamide (Brinzolamide (Azopt) Ops 10 Ml Btl) 1 drops OPL Q12H MARY Stop: 06/14/21 20:59 Last Admin: 05/16/21 08:08 Dose: 1 drops Documented by: [id number] Admin: 05/15/21 22:01 Dose: 1 drops Documented by: [id number] Ciprofloxacin (Ciprofloxacin 250 Mg Tab) 250 mg PO Q12H MARY Stop: 06/14/21 20:59 Last Admin: 05/16/21 08:08 Dose: 250 mg Documented by: [id number] Admin: 05/15/21 21:59 Dose: 250 mg Documented by: [id number] Cyanocobalamin (Cyanocobalamin 500 Mcg Tablet (Vitamin B-12)) 1,000 mcg PO QAM MARY Stop: 06/15/21 08:59 Last Admin: 05/16/21 08:07 Dose: 1,000 mcg Documented by: [id number] Diltiazem HCl (Diltiazem Hcl 240 Mg Capcr) 240 mg PO DAILY MARY Stop: 06/15/21 08:59 Last Admin: 05/16/21 08:08 Dose: 240 mg Documented by: [id number] Docusate Sodium (Docusate Sodium 100 Mg Cap) 100 mg PO BID MARY Stop: 06/14/21 21:14 Last Admin: 05/16/21 08:08 Dose: 100 mg Documented by: [id number] Admin: 05/15/21 21:59 Dose: 100 mg Documented by: [id number] Doxazosin Mesylate (Doxazosin Mesylate Tab 2 Mg Tab) 2 mg PO HS [facility] Stop: 06/14/21 20:59 Last Admin: 05/15/21 21:59 Dose: 2 mg Documented by: [id number] Finasteride (Finasteride 5 Mg Tab) 5 mg PO QAM MARY Stop: 06/15/21 08:59 Last Admin: 05/16/21 08:07 Dose: 5 mg Documented by: [id number] Fluticasone Furoate (Fluticasone Furoate 100mcg 14 Puffs/Inhaler) 1 puffs INH DAILY MARY; Protocol Stop: 06/15/21 08:59 Last Admin: 05/16/21 08:09 Dose: 1 puffs Documented by: [id number] Levothyroxine Sodium (Levothyroxine Sodium 100 Mcg Tablet) 100 mcg PO DAILYBB [facility] Stop: 06/15/21 06:29 Last Admin: 05/16/21 06:28 Dose: 100 mcg Documented by: [id number] Metoprolol Succinate (Metoprolol Succ 25mg Ext Rel Tab) 25 mg PO DAILY MARY Stop: 06/15/21 08:59 Last Admin: 05/16/21 08:07 Dose: 25 mg Documented by: [id number] Miscellaneous (*Rocklatan*Order Awaiting Action) 1 ea N/A QS [facility] Stop: 06/15/21 00:00 Last Admin: 05/16/21 15:24 Dose: Not Given Documented by: [id number] Admin: 05/16/21 07:40 Dose: Not Given Documented by: [id number] Admin: 05/15/21 23:45 Dose: Not Given Documented by: [id number] Sodium Chloride (Sodium Chloride 0.9% 10ml Flush) 10 ml IV Q12H MARY Stop: 06/14/21 20:59 Last Admin: 05/16/21 08:09 Dose: 10 ml Documented by: [id number] Admin: 05/15/21 21:59 Dose: 10 ml Documented by: [id number] Umeclidinium/Vilanterol (Umeclidinium/Vilanterol 62.5/25mcg 7 Puffs/Inhaler) 1 puffs INH DAILY MARY; Protocol Stop: 06/15/21 08:59 Last Admin: 05/16/21 08:09 Dose: 1 puffs Documented by: [id number] Discontinued Medications Apixaban (Apixaban 2.5 Mg Tab) 2.5 mg PO ONE ONE Stop: 05/15/21 21:31 Last Admin: 05/15/21 22:32 Dose: 2.5 mg Documented by: [id number] Diltiazem HCl (Diltiazem Hcl 5 Mg/Ml 5 Ml Vial) 10 mg IV NOW STA Stop: 05/15/21 14:11 Last Admin: 05/15/21 15:08 Dose: Not Given Documented by: [id number] Sodium Chloride (Nss) 500 mls @ 999 mls/hr IV .Q31M ONE Stop: 05/15/21 14:38 Last Admin: 05/15/21 15:08 Dose: Not Given Documented by: [id number] Sodium Chloride (Nss) 250 mls @ 999 mls/hr IV .Q16M ONE Stop: 05/15/21 17:43 Last Admin: 05/15/21 22:15 Dose: Not Given Documented by: [id number] Magnesium Sulfate/Dextrose (Magnesium Sulfate / D5w) 1 gm in 100 mls @ 100 mls/hr IV NOW STA Stop: 05/15/21 18:30 Last Infusion: 05/15/21 22:16 Dose: 0 mls/hr Documented by: [id number] Admin: 05/15/21 18:24 Dose: 100 mls/hr Documented by: [id number] Furosemide 20 mg/ Syringe 2 mls @ 4 mls/min IV 0645 ONE Stop: 05/16/21 06:46 Last Admin: 05/16/21 06:43 Dose: 4 mls/min Documented by: [id number] Oxycodone HCl (Oxycodone Hcl Ir 5 Mg Tab (Immediate Release)) 7.5 mg PO NOW STA Stop: 05/15/21 16:18 Last Admin: 05/15/21 16:27 Dose: 7.5 mg Documented by: [id number] Critical Care Time Critical Care Time: Yes Total Critical Care Time: 35 I have personally spent 35 minutes of critical care time in the direct management of this patient. This was a life threatening event. This 35 minutes is in excess of all separately billable procedures. Medical Decision Making Differential Diagnosis Infection, dehydration, metabolic abnormality, hypo/hyperglycemia, electrolyte disturbance, anemia, hypoxia, cardiac sources, intracerebral event, toxicologic, neurologic, as well as other pathologies. Medical Records Attestation: I reviewed the patient's medical records. Home Medications Current Medication List: was personally reviewed by me Laboratory Data Attestation: I reviewed the patient's lab results. Result diagrams: 05/16/21 06:42 05/16/21 09:59 Lab Results 05/15/21 05/15/21 05/15/21 Range/Units 13:23 13:23 13:23 WBC 7.05 (4.8-10.8) K/uL RBC 2.31 L (4.7-6.1) M/uL Hgb 7.6 L (14.0-18.0) g/dL Hct 22.6 L (42-52) % MCV 97.8 (80-100) fL MCH 32.9 (25-34) pg MCHC 33.6 (32-36) g/dL RDW Std Deviation 71.4 H (36.4-46.3) fL RDW Coeff of Devi 20.3 H (11.5-14.5) % Plt Count 170 (130-400) K/uL MPV 9.6 (7.4-10.4) fL Immature Gran % (Auto) 7.9 % Neut % (Auto) 64.8 % Lymph % (Auto) 7.2 % [place] % (Auto) 17.2 % Eos % (Auto) 2.8 % Baso % (Auto) 0.1 % Neut # (Auto) 4.56 (1.4-6.5) K/uL Lymph # (Auto) 0.51 L (1.2-3.4) K/uL [place] # (Auto) 1.21 H (0.11-0.59) K/uL Eos # (Auto) 0.20 (0-0.5) K/uL Baso # (Auto) 0.01 (0-0.2) K/uL Immature Gran # (Auto) 0.56 H (0.00-0.02) K/uL Toxic Granulation 2+ Dohle Bodies 2+ Anisocytosis Present PT 12.1 H (9.0-12.0) Seconds INR 1.2 H (0.9-1.1) APTT 35.8 H (21.0-31.0) Seconds PTT Ratio 1.4 Sodium 135 L (136-145) mmol/L Potassium 4.6 (3.5-5.1) mmol/L Chloride 104 (98-107) mmol/L Carbon Dioxide 27 (21-32) mmol/L Anion Gap 4.0 (3-11) BUN 61 H (7-18) mg/dl Creatinine 1.56 H (0.6-1.4) mg/dl Est Cr Clr Drug Dosing 36.2 ml/min Est GFR ( Amer) 45.9 ml/min Est GFR (Non-Af Amer) 39.6 ml/min BUN/Creatinine Ratio 38.8 H (10-20) Glucose 153 H (70-99) mg/dl Calcium 8.4 L (8.5-10.1) mg/dl Magnesium 1.7 L (1.8-2.4) mg/dl Total Bilirubin 0.4 (0.2-1) mg/dl AST 9 L (15-37) U/L ALT 16 (12-78) U/L Alkaline Phosphatase 133 H (45-117) U/L Troponin I < 0.015 (0-0.045) ng/ml Total Protein 4.7 L (6.4-8.2) gm/dl Albumin 2.1 L (3.4-5.0) gm/dl Globulin 2.6 (2.5-4.0) gm/dl Albumin/Globulin Ratio 0.8 L (0.9-2) COVID-19 Eval Order SARS-CoV-2 (PCR) (Negative) Blood Type Antibody Screen Crossmatch 05/15/21 05/15/21 05/15/21 Range/Units 13:23 13:23 16:45 WBC (4.8-10.8) K/uL RBC (4.7-6.1) M/uL Hgb (14.0-18.0) g/dL Hct (42-52) % MCV (80-100) fL MCH (25-34) pg MCHC (32-36) g/dL RDW Std Deviation (36.4-46.3) fL RDW Coeff of Devi (11.5-14.5) % Plt Count (130-400) K/uL MPV (7.4-10.4) fL Immature Gran % (Auto) % Neut % (Auto) % Lymph % (Auto) % [place] % (Auto) % Eos % (Auto) % Baso % (Auto) % Neut # (Auto) (1.4-6.5) K/uL Lymph # (Auto) (1.2-3.4) K/uL [place] # (Auto) (0.11-0.59) K/uL Eos # (Auto) (0-0.5) K/uL Baso # (Auto) (0-0.2) K/uL Immature Gran # (Auto) (0.00-0.02) K/uL Toxic Granulation Dohle Bodies Anisocytosis PT (9.0-12.0) Seconds INR (0.9-1.1) APTT (21.0-31.0) Seconds PTT Ratio Sodium (136-145) mmol/L Potassium (3.5-5.1) mmol/L Chloride (98-107) mmol/L Carbon Dioxide (21-32) mmol/L Anion Gap (3-11) BUN (7-18) mg/dl Creatinine (0.6-1.4) mg/dl Est Cr Clr Drug Dosing ml/min Est GFR ( Amer) ml/min Est GFR (Non-Af Amer) ml/min BUN/Creatinine Ratio (10-20) Glucose (70-99) mg/dl Calcium (8.5-10.1) mg/dl Magnesium (1.8-2.4) mg/dl Total Bilirubin (0.2-1) mg/dl AST (15-37) U/L ALT (12-78) U/L Alkaline Phosphatase (45-117) U/L Troponin I (0-0.045) ng/ml Total Protein (6.4-8.2) gm/dl Albumin (3.4-5.0) gm/dl Globulin (2.5-4.0) gm/dl Albumin/Globulin Ratio (0.9-2) COVID-19 Eval Order Covid19 at [facility] SARS-CoV-2 (PCR) NEGATIVE (Negative) Blood Type O Positive Antibody Screen NEGATIVE Crossmatch See Detail Imaging Data Radiologist's Impression: Chest X-Ray 05/15/21 13:02 SINGLE VIEW CHEST CLINICAL HISTORY: Dyspnea. FINDINGS: An AP, portable, upright chest radiograph is compared to chest x-ray and chest CT dated 05/13/2021. A right-sided central venous catheter is unchanged in position. The heart is top normal for projection noting atherosclerotic calcification of the thoracic aorta. There is pulmonary vascular congestion. Emphysema and chronic interstitial thickening is similar to previous. There are layering pleural effusions with bibasilar consolidation. No pneumothorax is seen. The skeletal structures are osteopenic. The bony thorax is grossly intact. Fusion hardware is noted in the thoracic spine. IMPRESSION: 1. Cardiomegaly and emphysema with evidence of fluid overload/congestive failure. 2. Layering pleural effusions with bibasilar consolidation. ACT 112: Negative or not required by law. Electronically signed by: Red Matamoros M.D. 05/15/2021 1:24 PM ECG Data Attestation: I personally reviewed and interpreted this ECG as follows: Indication: + weakness Rate (beats per minute): 106 Rhythm: + atrial fibrillation ECG Intervals/blocks: + Normal QRS (Low voltage) and + Normal QT-c ECG Brooks: + Normal ECG ST segments: + Normal ST segments ECG Findings: no PACs or no PVCs Blood Pressure Blood Pressure Findings: Normal blood pressure Blood Pressure Disposition: did not require urgent referral MDM Narrative This patient was evaluated and appeared to be in no significant distress. IV access was obtained and laboratory work was drawn. An order was placed for cardiac monitoring and the patient is noted to be in atrial fibrillation with RVR at 113 bpm. Patient's blood pressure has remained stable. Laboratory work reveals anemia with hemoglobin at 7.6. Cardizem 10 mg IV has been ordered. This was held as the patient's heart rate seemed to periodically rate controlled. Patient was only trace guaiac positive from the rectum. Patient was typed and crossed for 1 unit PRBCs. Consent was obtained from the patient's . CT angiogram was felt not to be necessary as the patient had the study performed 2 days ago and he is chronically anticoagulated. I did speak with Dr. Badillo of [facility] who knew the patient well. Goals of care should be discussed with the patient and his oncology appointment is not for another week. Given that this is the second blood transfusion the patient has required this week and that he is not able to tolerate 3 hours of rehab in 1 day, nor is he showing significant signs of improvement, the patient will be evaluated by the hospitalist service for further management. Impression & Plan Lymphoma malignant, large cell, Anemia, Atrial fibrillation with rapid ventricular response, Chronic anticoagulation Discharge Plan Visit Data Chief Complaint: Referred by Doctor Stated Complaint: EVAL. FOR PE ED Provider: Jasmine Falcon Discharge Problem: Lymphoma malignant, large cell, Anemia, Atrial fibrillation with rapid ventricular response, Chronic anticoagulation Patient Disposition: Admitted As Inpatient Discharge Instructions Interventions: ED Discharge Assessment Last Done: 05/15/21 20:06 Discharge Problem: Anemia Qualifiers: Anemia type: iron deficiency Iron deficiency anemia type: chronic blood loss Qualified Code(s): D50.0 - Iron deficiency anemia secondary to blood loss (chronic)
[2021-05-15] MEDS: SODIUM CHLORIDE 0.9% 10ML FLUSH IV SCH (21:59)
[2021-05-15] MEDS: DOCUSATE SODIUM 100 MG CAP PO SCH (21:59)
[2021-05-15] MEDS: CIPROFLOXACIN 250 MG TAB PO SCH (21:59)
[2021-05-15] MEDS: ACYCLOVIR 400 MG TAB PO SCH (21:59)
[2021-05-15] MEDS: DOXAZosin MESYLATE TAB 2 MG TAB PO SCH (21:59)
[2021-05-15] MEDS: BRINZOLAMIDE (AZOPT) OPS 10 ML BTL OPL SCH (22:01)
[2021-05-15] MEDS: BRIMONIDINE TARTRATE 0.2% 5ML OPL SCH (22:01)
--- NOTE | 2021-05-16 05:54 | Electrocardiogram Report ---
Test Reason : Blood Pressure : / mmHG Vent. Rate : 107 BPM Atrial Rate : 092 BPM P-R Int : 000 ms QRS Dur : 084 ms QT Int : 320 ms P-R-T Axes : 000 047 050 degrees QTc Int : 427 ms Atrial fibrillation with rapid ventricular response Abnormal ECG When compared with ECG of 13-MAY-2021 08:00, No significant change was found Confirmed by Delgado Scott ([id number]) on 05/16/2021 5:54:30 AM Referred By: REFERRED SELF Confirmed By:Delgado Scott
[2021-05-16] MEDS: LEVOTHYROXINE SODIUM 100 MCG TABLET PO SCH (06:28)
[2021-05-16] MEDS ORDERED: FUROSEMIDE 20 MG in SYRINGE 0 ML IV ONE (06:45)
[2021-05-16] MEDS ORDERED: MELATONIN 3 MG TAB PO PRN (07:11)
[2021-05-16 07:22] LABS: Hematocrit (blood only) 24.2 % (42-52); Mean Corpuscular Hemoglobin 32.7 pg (25-34); Mean Corpuscular Hgb Conc 33.1 g/dL (32-36); Mean Corpuscular Volume 98.8 fL (80-100); Mean Platelet Volume 10.3 fL (7.4-10.4); Platelet Count 157 K/uL (130-400); RDW Coefficient of Variation 18.8 % (11.5-14.5); RDW Standard Deviation 67.4 fL (36.4-46.3); Red Blood Count 2.45 M/uL (4.7-6.1); White Blood Count 6.16 K/uL (4.8-10.8)
--- NOTE | 2021-05-16 07:23 | Hospitalist Progress Note ---
Date of Service May 16, 2021 Assessment & Plan (1) B-cell lymphoma: Plan: Mr. 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 - Appears multifactorial - A Fib RVR vs Anemia vs Volume Overload - Appears A Fib may have been a new diagnosis when he presented on 13 May - is on Diltiazem, Metoprolol, and AC - Does have anemia which appears chemo-induced; no signs of active bleeding while on AC - had chemo earlier this month and Neulasta prior to D/C from [facility] - CXR does reveal volume overlead; albumin is low and does appear to be third spacing - Initially presented with BP in 90s systolic - has improved with blood transfusion but may benefit from dose of Lasix to prevent further overload; patient is laying flat on his bed, sleeping, and snoring and reports no orthopnea or SOB and currently on his baseline 3L NC - CXR today reports findings of layering pleural effusion with consolidation - no consoldiations of CTA on 13 May - is afebrile, no leukocytosis, not favoring a pneumonia picture - may have some compressive atelectasis or possibility of pulmonary infarct given PEs - will monitor for need to add Abx coverage Atrial fibrillation with rapid ventricular response - Appears as a new diagnosis on 13 May - currently on treatment - Presented again with A Fib - uncertain if he converted out on the or has been maintaining this rhythm; given his PEs, COPD, and metastatic CA likely could have induced A Fib - Will monitor HR with blood transfusion and improvement in BP to see if the HR controls - Metoprolol IV PRN for tachycardia - Again may need to utilize dose of Lasix depending on volume status - Echo from January 2021 - grade I diastolic dysfunction - Repeat Echo - given A Fib, PEs, and CA may have some changes Anemia associated with chemotherapy - Hgb was 6.8 on 13 May and transfused 1 unit; Now at 7.2 but transfusing in ED x 1 unit - Continue to monitor labs - Last chemo earlier this month B-cell lymphoma - Recent diagnosis this month; had first dose of Chemo and Neulasta in [facility] - On Cipro and Acyclovir - not exactly sure if this is preventative? will need to F/U with [facility] - Will consult Dr. Foote for discussion with anemia and lymphoma Pulmonary embolism - Recent Dx earlier this month and recent CTA revealed some improvement in PEs - Continue Eliquis as no signs of active blood loss and anemia appears chemo- induced - No indication to re-CTA as he is on treatment; utilizing his baseline O2; and reported improvement in SOB in ED COPD - Does not appear to be in exacerbation at this time; no wheezing appreciated on examination - Continue PRN inhaler Hypertension - Improving since transfusion but was in 90s systolic - Will hold Lisinopril 10 mg daily in favor of rate controlling options until BP improves and will monitor Controlled type 2 diabetes mellitus with chronic kidney disease - Does not appear on active treatment; will initially monitor BSGs -- can add insulin coverage if it appears needed but will hold at this time - A1c 6.2 on last check Hypothyroidism - TSH was WNL on last check but will recheck in AM given new A Fib - Continue Levothyroxine 100 mcg daily BPH - Continue Finasteride 5 mg daily and Doxazosin 2 mg HS CKD3 - Appears baseline is around 1.4-1.6 - Avoid nephrotoxins when able and will monitor with AM labs MOHAMUD - Pt does not utilize CPAP (2) Atrial fibrillation with rapid ventricular response: (3) Chronic respiratory failure with hypoxia: Admission and Anticipated Discharge Date Admission Date: May 15, 2021 Results & Data Results & Data ([facility]) Vital Signs (Past 12 Hours) Vital Signs Temp Pulse Pulse Resp BP BP Pulse Ox 05/16/21 02:32 36.4 C L 103 H 18 107/57 L 97 05/16/21 00:54 100 H 05/15/21 22:22 36.6 C 96 H 18 138/76 98 05/15/21 21:30 36.5 C 98 H 18 126/76 97 05/15/21 20:47 36.5 C 99 H 18 111/58 L 97 05/15/21 20:21 36.5 C 99 H 18 111/58 L 97 05/15/21 19:45 36.6 C 102 H 20 122/64 95 05/15/21 19:30 36.7 C 104 H 14 108/62 95 (1) B-cell lymphoma B-cell lymphoma type: unspecified B-cell Lymphoma site: unspecified region Qualified Code(s): C85.10 - Unspecified B-cell lymphoma, unspecified site
[2021-05-16 07:51] LABS: BUN Creatinine Ratio 37.2 (10-20); Calcium 8.5 mg/dl (8.5-10.1); Creatinine Clr Calc Pharmacy 39.2 ml/min; Est GFR (African American) 50.6 ml/min; Est GFR (Non-African American) 43.7 ml/min; Potassium 4.4 mmol/L (3.5-5.1)
[2021-05-16 08:02] LABS: Thyroid Stimulating Hormone 1.83 uIu/ml (0.300-4.500)
[2021-05-16] MEDS: FINASTERIDE 5 MG TAB PO SCH (08:07)
[2021-05-16] MEDS: METOPROLOL SUCC 25MG EXT REL TAB PO SCH (08:07)
[2021-05-16] MEDS: CYANOCOBALAMIN 500 MCG TABLET (VITAMIN B-12) PO SCH (08:07)
[2021-05-16] MEDS: dilTIAZem HCL 240 MG CAPCR PO SCH (08:08)
[2021-05-16] MEDS: DOCUSATE SODIUM 100 MG CAP PO SCH ×2 (08:08→20:27)
[2021-05-16] MEDS: allopurinoL 300 MG TAB PO SCH (08:08)
[2021-05-16] MEDS: ACYCLOVIR 400 MG TAB PO SCH ×2 (08:08→20:29)
[2021-05-16] MEDS: BRINZOLAMIDE (AZOPT) OPS 10 ML BTL OPL SCH ×2 (08:08→20:27)
[2021-05-16] MEDS: BRIMONIDINE TARTRATE 0.2% 5ML OPL SCH ×2 (08:08→20:31)
[2021-05-16] MEDS: CIPROFLOXACIN 250 MG TAB PO SCH ×2 (08:08→20:29)
[2021-05-16] MEDS: SODIUM CHLORIDE 0.9% 10ML FLUSH IV SCH ×2 (08:09→20:31)
[2021-05-16] MEDS: FLUTICASONE FUROATE 100MCG 14 PUFFS/INHALER INH SCH (08:09)
[2021-05-16] MEDS: UMECLIDINIUM/VILANTEROL 62.5/25MCG 7 PUFFS/INHALER INH SCH (08:09)
[2021-05-16] MEDS ORDERED: NON-FORMULARY MEDICATION (Fluticasone-Umeclidin-Vilanter [Trelegy Ellipta] 100-62.5-25 mcg INH SCH (09:00)
[2021-05-16 09:34] LABS: Appearance Urine Clear (Clear); Bacteria Urine Automated Negative (Negative); Bilirubin Urine Negative (Negative); Blood Urine Negative (Negative); Color Urine Yellow; Epithelial Cell Urine Auto 0-5 /lpf (0-5); Glucose Urine UA Negative (Negative); Ketones Urine Negative (Negative); Leukocyte Esterase Urine Negative (Negative); Nitrite Urine Negative (Negative); Protein Urine Trace (Negative); RBC Urine Automated 0-4 /hpf (0-4); Specific Gravity Urine 1.009 (1.000-1.030); Urobilinogen Urine Negative (Negative)
[2021-05-16] MEDS: APIXABAN 5 MG TABLET PO SCH ×2 (09:36→20:27)
[2021-05-16 10:28] LABS: BUN Creatinine Ratio 35.4 (10-20); Calcium 8.2 mg/dl (8.5-10.1); Creatinine Clr Calc Pharmacy 37.7 ml/min; Est GFR (African American) 48.2 ml/min; Est GFR (Non-African American) 41.6 ml/min; Potassium 4.5 mmol/L (3.5-5.1)
[2021-05-16 16:23] LABS: Hematocrit (blood only) 25.8 % (42-52); Hemoglobin 8.7 g/dL (14.0-18.0)
--- NOTE | 2021-05-16 17:38 | XCELERA ---
[id number]
--- NOTE | 2021-05-16 17:52 | Hospitalist Progress Note ---
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 He recently developed bilateral PEs and Afib with RVR. He also has anemia, chronic respiratory failure with hypoxia, and COPD. He presented yesterday with shortness of breath. Shortness of breath - Likely multifactorial, including: - Bilateral PEs. Currently on Eliquis. Based on his history with recent admiss ions from [facility] due to shortness of breath, particularly the admission on the and CT showing slight improvement of pulmonary emboli, and development of pleural effusions, it seems that these are improving. - Continue on Apixiban per [facility] discharge - A fib with RVR - The RVR is a possible cause or exacerbating factor of his dyspnea. HR continues to improve. No longer dyspneic. - Differential also includes COPD exacerbation or infectious cause for shortness of breath. Given no consolidations on CTA on May 13, pt is afebrile, no leukocytosis, and no longer dyspneic does not seem to be pneumonia picture. - Additional Lasix dose given. - Fluid overload/congestive failure. Chest CXR in the ED revealed cardiomegaly with evidence of fluid overload. Lasix dose given on admission. Today, on physical exam, no crackles or rales were appreciated, mild edema. - Given improvement with Lasix dose and physical exam today, most consistent with fluid overload seen on CXR. Afib with RVR - New diagnosis since admission on May 13 - currently on treatment of Dilatezem, Metoprolol, Eliquis - Presented again with A Fib and A fib on exam this morning. Uncertain if he converted out on the or has been maintaining this rhythm; given his PEs, COPD, and metastatic cancer likely could have induced A Fib - Continue to monitor HR - Metoprolol IV PRN for tachycardia - Echo from January 2021 - grade I diastolic dysfunction Anemia - 7.6 on arrival, improved to 8.7 s/p transfusion of 1u pRBC - Possibly secondary to patient's chemotherapy - No signs of active bleeding - Trend daily CBC Hypotension - Soft pressures on admission, but have since improved - Continue to hold lisinopril 10mg DLBCL - Received chemotherapy mini-CHOP regiment and Neulasta injection at [facility] on 05/07. - Has follow-up appointments on with neurosurgery and follow-up with Dr. Rodriguez - Currently on Acyclovir and Cipro, likely prophylaxis after chemotherapy regimen (started at [facility]) FEN: gentle IVF, regular diet Code status: DNR/DNI DVT ppx: eliquis PT/OT: ordered Case management: following Dispo: med/surg tele Admission and Anticipated Discharge Date Admission Date: May 15, 2021 Supervising Physician Co-Signing Physician Notes I personally examined the patient and verified all brown points of history and exam, discussed case, and agree with decision making with Ugo Beal MS2 feeling better breathing feels more like baseline no new complaints this afternoon vitals noted nad heent nc mmm breathing unlabored no accessory muscles good effort quiet but clear no r/r/w skin no rashes no pallor or icterus dyspnea -acute likely from anemia and CHF - now improving -also easily from afib particularly if rates were higher now improving -also subacutely from PE but no reason to suspect worse - and anticoagulated as above continue current care otherwise Subjective HPI: Jose Alejandro Wiggins is an 86 yo male with a complex history of 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 He was diagnosed with DLBCL after he presented to the hospital on April 20 and sent overnight to [facility]. He initially presented with bilateral lower extremity weakness due to mass compression on the spinal cord. There, he was found to have PEs and spinal and liver metastasis. He underwent spinal surgery on April 21. He completed a mini-CHOP chemotherapy regimen and Neulasta injection at [facility] before being discharged to [facility] on May 09. His discharge plan included Apixiban. Since his discharge, he has come to the hospital a few times since then due to shortness of breath. On May 13 he presented to the ED and was found to be in A fib with RVR and HGB of 6.8. He was transfused 1 unit of blood and rate resolved. A Chest CT revealed slight improvement in the bilateral segmental pulmonary emboli, no new pulmonary emboli identified and development of small bilateral pleural effusions. Yesterday, he presented with new shortness of breath. [facility] was concerned about new PEs. On admission, he had a BP of 92/60, in a fib with heart rate of 102, and afebrile. He was given 1 unit of blood in the ED and BP and HGB came up. The ED CXR showed fluid overload and congestive failure. Today, Mr. Wiggins feels okay and states that he has no shortness of breath- he says no better no worse. He says that he slept very well and ate a little breakfast this morning. He also states he has no fever, chills, pain, wheezing, orthopnea, chest pain, or palpitations. Hes currently on 3L of oxygen by nasal cannula. Review of Systems Constitutional: no fever, chills, no night sweats, no fatigue Ear, Nose, Mouth, Throat: No congestion, sore throat, no dysphagia Respiratory: No sob, no cough Cardiovascular: Additional Comments: No chest pain, no palpitations, no orthopnea, no paroxysmal nocturnal dyspnea Gastrointestinal: No abdominal pain, no nausea, vomiting, diarrhea, constipation Neurologic: No dizziness or lightheadedness Physical Exam Constitutional: WN, WD, in no acute distress, appears tired and fatigued. Eyes: PERRLA ENMT: normocephalic, atraumatic Respiratory: lungs clear to auscultation, no crackles or rales Cardiovascular: Irregularly irregular, no m/r/g. no carotid bruits appreciated. mild lower extremity edema, dorsalis pedis pulses 2+ Skin: No erythema, rashes, ulcers. No bruises Results & Data Results & Data ([facility]) Vital Signs (Past 12 Hours) Vital Signs Temp Pulse Pulse Resp BP BP Pulse Ox 05/16/21 16:00 36.8 C 96 H 20 143/69 H 97 05/16/21 15:16 81 05/16/21 11:00 36.7 C 116 H 20 114/60 96 05/16/21 07:44 36.6 C 106 H 18 102/66 92 05/16/21 07:40 102 H Resident Activity Tracking Resident Involvement: Resident Care Provided Care Provided: [facility] Medicine
--- NOTE | 2021-05-16 18:58 | Billing Data ---
Date of Service May 16, 2021 Coding Level of Care Code 69731 Subseq Hosp Care Lvl 3
--- NOTE | 2021-05-16 18:59 | Billing Data ---
Date of Service May 16, 2021 Coding Level of Care Code 09916 Subseq Hosp Care Lvl 3
[2021-05-16] MEDS: oxyCODONE HCL IR 5 MG TAB (IMMEDIATE RELEASE) PO PRN (20:26)
[2021-05-16] MEDS: DOXAZosin MESYLATE TAB 2 MG TAB PO SCH (20:29)
[2021-05-16] MEDS: MELATONIN 3 MG TAB PO PRN (23:04)
--- NOTE | 2021-05-17 03:10 | Consultation Report ---
DATE OF SERVICE: 05/16/2021. REASON FOR CONSULTATION: An 86-year-old gentleman with history of non-Hodgkin's lymphoma. HISTORY OF PRESENT ILLNESS: The patient is a very pleasant and quite verbal 86-year-old gentleman who was admitted to [facility] on 05/15/2021, directly admitted from [facility] care due to shortness of breath. He was apparently admitted to our facility in early April due to bilateral lower extremity weakness and mass compression on the spinal cord. Mr. Wiggins was also diagnosed with pulmonary embolism and hepatic mass. He underwent decompression surgery on 04/21/2021 at the [facility] for spinal cord mass. Pathology confirmed a diffuse large B-cell lymphoma. He apparently underwent initial chemotherapy (mini R-CHOP) and Neulasta while at [facility]. He was hospitalized for a couple of weeks, subsequently sent to [facility] and apparently he became hemodynamically unstable with the assumption perhaps the rehabilitation was a bit too aggressive. He was subsequently transferred to [facility] where he was discovered to be in rapid ventricular rate, atrial fibrillation and hemoglobin is 6.8. He was transfused 1 unit of packed RBCs. He apparently had been sent back to [facility], but subsequently returned to [facility] because he was once again short of breath. Mr. Wiggins, once I mentioned lymphoma and treatment, proclaimed he really does not want any further aggressive care. He does not want to return to the [facility] for any further care and quite frankly has decided that he wants no further heroic intervention whatsoever. Jose Alejandro has established a DNR/DNI status. I specifically asked about blood products and he stated to me he really does not want blood products any longer. Mr. Wiggins realizes this decision upsets his , but at this point he is firm on the decision to move forward with palliation from this point forward. Unfortunately, I do not have [facility]'s records, but clearly this gentleman still cannot ambulate very well and understands probably be sent to an assisted living facility, will not be able to go home, but the encounter with him definitely wants to entertain the possibility of hospice care moving forward. He is currently on anticoagulation because of previously diagnosed pulmonary embolism and obviously atrial fibrillation. I found the patient very rational and engaging and respect his decision for desire for palliative care moving forward. 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 PAST SURGICAL HISTORY: Includes colonoscopy, and cataract extraction. MEDICATION LIST: Docusate sodium 100 mg p.o. b.i.d., doxazosin 2 mg p.o. at bedtime, finasteride 5 mg p.o. daily, levothyroxine 100 mcg p.o. daily, acyclovir 400 mg p.o. b.i.d., allopurinol 300 mg p.o. daily, apixaban 5 mg p.o. b.i.d., ciprofloxacin 250 mg p.o. q.12 hours, albuterol inhaler 2 puffs inhaled every 4 hours p.r.n., Flonase one inhalation p.o. daily, diltiazem 240 mg p.o. daily, lisinopril 10 mg p.o. daily, magnesium hydroxide 30 mL p.o. daily p.r.n., metoprolol 25 mg p.o. daily, oxycodone 7.5 mg p.o. q.6 hours p.r.n., Senokot S one tablet p.o. daily p.r.n. ALLERGIES: No known drug allergies. FAMILY HISTORY: Father attributable to COPD. Mother attributable to hypertension. He had a brother that suffered from dementia and a daughter with breast cancer. SOCIAL HISTORY: Patient resides with his spouse. He is retired. He has a [id number] smoking history, quit several years ago. Negative for alcohol or illicit drugs. REVIEW OF SYSTEMS: CONSTITUTIONAL: Again, asthenia, generalized weakness predominates, shortness of breath, dyspnea on exertion. No fevers, chills or sweats. SKIN: No dermatoses. HEENT: Denies headaches, lightheadedness or dizziness. No acute visual or hearing deficits. No sinus symptoms, sore throat or dysphagia. LYMPH: No history of peripheral lymphadenopathy. New diagnosis of BURLAP MAN, diffuse large B-cell lymphoma. CARDIAC: Positive for atrial fibrillation. PULMONARY: He was short of breath, dyspnea on exertion, which has improved since admission. GASTROINTESTINAL: Negative for abdominal pain, nausea, vomiting, diarrhea or constipation. GENITOURINARY: No current hematuria or dysuria. PSYCHIATRIC: No history of anxiety, psychoses or depression. ENDOCRINE: Positive for type 2 diabetes mellitus, positive for hypothyroidism. MUSCULOSKELETAL: Positive for generalized weakness. No arthralgias or myalgias. NEUROLOGIC: Negative for seizure, stroke or migraine headache. HEMATOLOGIC: Positive for anemia. PHYSICAL EXAMINATION: GENERAL: This is a very pleasant 86-year-old gentleman, awake, alert and appropriate, in no acute distress. VITAL SIGNS: Temperature 36.8, pulse 96, respiratory rate 20, blood pressure 143/69. SKIN: Warm, dry, noncyanotic. Turgor is fair. HEENT: Atraumatic, normocephalic. Eyes: PERRLA. EOMI. Sclerae are nonicteric. No conjunctival injection. Nares patent without rhinorrhea or discharge. Throat clear. Tongue midline. Mucous membranes are moist. NECK: Supple. HEART: Regular rate and rhythm. LUNGS: Clear to auscultation bilaterally. ABDOMEN: Soft, nontender, nondistended. EXTREMITIES: No clubbing, cyanosis or edema. NEUROLOGIC: Nonfocal. LABORATORY DATA: WBC count 6160, hemoglobin 8.7, platelet count 157,000. Creatinine 1.50, BUN 53. IMPRESSION: 1. Atrial fibrillation with rapid ventricular response. 2. Shortness of breath. 3. Anemia, etiology unclear, possibly attributable to chemotherapeutics. 4. Diffuse large B-cell lymphoma with BURLAP MAN involvement (spinal cord compression). 5. Pulmonary embolism and liver metastasis. PLAN: I had a very enlightening discussion with Mr. Wiggins and position regarding treatment moving forward. In no uncertain terms, he made it very clear he will not return to the [facility] for further treatment nor wants to entertain any further chemo or radiation therapy either. During my discussion, I outlined potential options including radiation alone, continuing mini CHOP chemotherapy locally if he desired and even went as far as probing him about palliative care or hospice care. The patient stated, "I am done" and do not wish any further intervention.Mr. Wiggins admitted he would entertain assisted suicide if provided to him. Informed him as a physician, I would not provide such a service, but certainly would be more than happy to assist him if he enrolls in outpatient hospice to palliate any symptoms as the disease progresses leading to end of life. The patient admitted he understands his will not be on board with this decision, but ultimately it is his decision to make moving forward. I had the sense the patient definitely understands the current clinical situation and respect the decision moving forward, finding him of sound mind and reason. I asked him specifically about other interventions including cardiopulmonary resuscitation, hemodialysis and even blood transfusion moving forward. He made it very clear he wants none of those interventions moving forward regardless of the clinical situation. That said, I took the liberty of ordering a palliative consultation moving forward. The patient understands while he may not be able to go home and most likely he will end up in assisted nursing facility, he may receive hospice care even in the setting of persistent care. Questions and concerns were addressed, and if there are any further questions, feel free to contact me at any time. The patient understands that I would document our conversation, so that appropriate decisions can be made moving forward. Job ID: [id number] [id number]
[2021-05-17] MEDS: LEVOTHYROXINE SODIUM 100 MCG TABLET PO SCH (05:23)
--- NOTE | 2021-05-17 05:47 | Electrocardiogram Report ---
Test Reason : Blood Pressure : / mmHG Vent. Rate : 106 BPM Atrial Rate : 111 BPM P-R Int : 000 ms QRS Dur : 088 ms QT Int : 284 ms P-R-T Axes : 000 042 047 degrees QTc Int : 377 ms Atrial fibrillation with rapid ventricular response Low voltage QRS Abnormal ECG When compared with ECG of 15-MAY-2021 12:23, No significant change was found Confirmed by Delgado Scott ([id number]) on 05/17/2021 5:47:17 AM Referred By: REFERRED SELF Confirmed By:Delgado Scott
[2021-05-17 06:45] LABS: Hematocrit (blood only) 25.6 % (42-52); Hemoglobin 8.3 g/dL (14.0-18.0); Mean Corpuscular Hemoglobin 32.4 pg (25-34); Mean Corpuscular Hgb Conc 32.4 g/dL (32-36); Mean Platelet Volume 10.2 fL (7.4-10.4); Nucleated RBC # (auto) 0.02 K/uL (0-0); Nucleated RBC % (auto) 0.1 %; Platelet Count 160 K/uL (130-400); RDW Coefficient of Variation 18.5 % (11.5-14.5); RDW Standard Deviation 67.2 fL (36.4-46.3); Red Blood Count 2.56 M/uL (4.7-6.1); White Blood Count 13.65 K/uL (4.8-10.8)
[2021-05-17 07:03] LABS: ALC (manual) 1.06 K/uL (1.2-3.4); ANC (manual) 11.52 K/uL (1.4-6.5); Dohle Bodies 2+; Eosinophils # (manual) 0.35 K/uL (0-0.5); Eosinophils % (manual) 2.6 %; Lymphocytes # (manual) 1.06 K/uL (1.2-3.4); Lymphocytes % (manual) 7.8 %; Monocytes # (manual) 0.71 K/uL (0.11-0.59); Monocytes % (manual) 5.2 %; Neutrophils # (manual) 11.52 K/uL (1.4-6.5); Neutrophils % (manual) 84.4 %; Toxic Granulation 1+
[2021-05-17 07:21] LABS: BUN Creatinine Ratio 33.3 (10-20); Calcium 8.7 mg/dl (8.5-10.1); Creatinine Clr Calc Pharmacy 36.7 ml/min; Est GFR (African American) 46.7 ml/min; Est GFR (Non-African American) 40.3 ml/min; Magnesium 1.8 mg/dl (1.8-2.4); Potassium 4.1 mmol/L (3.5-5.1)
[2021-05-17] MEDS: METOPROLOL SUCC 25MG EXT REL TAB PO SCH (08:32)
[2021-05-17] MEDS: SODIUM CHLORIDE 0.9% 10ML FLUSH IV SCH ×2 (08:32→20:46)
[2021-05-17] MEDS: FINASTERIDE 5 MG TAB PO SCH (08:33)
[2021-05-17] MEDS: DOCUSATE SODIUM 100 MG CAP PO SCH ×2 (08:33→20:49)
[2021-05-17] MEDS: CIPROFLOXACIN 250 MG TAB PO SCH ×2 (08:33→20:49)
[2021-05-17] MEDS: CYANOCOBALAMIN 500 MCG TABLET (VITAMIN B-12) PO SCH (08:33)
[2021-05-17] MEDS: dilTIAZem HCL 240 MG CAPCR PO SCH (08:33)
[2021-05-17] MEDS: FLUTICASONE FUROATE 100MCG 14 PUFFS/INHALER INH SCH (08:34)
[2021-05-17] MEDS: APIXABAN 5 MG TABLET PO SCH ×2 (08:34→20:45)
[2021-05-17] MEDS: BRINZOLAMIDE (AZOPT) OPS 10 ML BTL OPL SCH ×2 (08:35→20:44)
[2021-05-17] MEDS: UMECLIDINIUM/VILANTEROL 62.5/25MCG 7 PUFFS/INHALER INH SCH (08:35)
[2021-05-17] MEDS: ACYCLOVIR 400 MG TAB PO SCH ×2 (08:35→20:48)
[2021-05-17] MEDS: allopurinoL 300 MG TAB PO SCH (08:35)
[2021-05-17] MEDS: BRIMONIDINE TARTRATE 0.2% 5ML OPL SCH ×2 (08:37→20:44)
--- NOTE | 2021-05-17 09:52 | Hospitalist Progress Note ---
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 He recently developed bilateral PEs and Afib with RVR. He also has anemia, chronic respiratory failure with hypoxia, and COPD. He presented yesterday with shortness of breath. Shortness of breath - Likely multifactorial, including: - Bilateral PEs. Currently on Eliquis. Based on his history with recent admissions from [facility] due to shortness of breath, particularly the admission on the and CT showing slight improvement of pulmonary emboli, and development of pleural effusions, it seems that these are improving. - Continue on Apixiban per [facility] discharge - A fib with RVR - The RVR is a possible cause or exacerbating factor of his dyspnea. HR continues to improve. No longer dyspneic. - Differential also includes COPD exacerbation or infectious cause for shortness of breath. Given no consolidations on CTA on May 13, pt is afebrile, no leukocytosis, and no longer dyspneic does not seem to be pneumonia picture. - Additional Lasix dose given. - Fluid overload/congestive failure. Chest CXR in the ED revealed cardiomegaly with evidence of fluid overload. Lasix dose given on admission. Today, on physical exam, no crackles or rales were appreciated, mild edema. - Given improvement with Lasix dose and physical exam today, most consistent with fluid overload seen on CXR - 05/17: new leukocytosis to 13.65 without increase in SOB or other obvious symptoms; will continue to monitor Afib with RVR - New diagnosis since admission on May 13 - currently on treatment of Dilatezem, Metoprolol, Eliquis - Presented again with A Fib and A fib on exam this morning. Uncertain if he converted out on the or has been maintaining this rhythm; given his PEs, COPD, and metastatic cancer likely could have induced A Fib - Continue to monitor HR - Metoprolol IV PRN for tachycardia - Echo from January 2021 - grade I diastolic dysfunction Anemia - 7.6 on arrival, improved to 8.7 s/p transfusion of 1u pRBC - Possibly secondary to patient's chemotherapy - No signs of active bleeding - Trend daily CBC Hypotension - Soft pressures on admission, but have since improved - Continue to hold lisinopril 10mg DLBCL - Received chemotherapy mini-CHOP regiment and Neulasta injection at [facility] on 05/07. - Has follow-up appointments on with neurosurgery and follow-up with Dr. Rodriguez - Currently on Acyclovir and Cipro, likely prophylaxis after chemotherapy regimen [place] [facility] [place] FEN: gentle IVF, regular diet Code status: DNR/DNI DVT ppx: eliquis PT/OT: ordered Case management: following Dispo: med/surg tele, possibly home with hospice pending discussion about patient's wishes with palliative care Admission and Anticipated Discharge Date Admission Date: May 15, 2021 Supervising Physician Co-Signing Physician Notes I personally examined the patient and verified all brown points of history and exam, discussed case, and agree with decision making with Dr Villalba Biggest complaint today is back pain. vitals noted. Mildly uncomfortable from pain heent nc mmm breathing unlabored no accessory muscles good effort quiet but clear no r/r/w skin no rashes no pallor or icterus dyspnea -acute likely from anemia and probable acute diastolic CHF (likely A. fib RVR driven)- now improved overall -also easily from afib itself particularly if rates were higher now improving -also subacutely from PE but no reason to suspect worse - and anticoagulated Continuing to discuss goals of care with patienthe had a very ab discussion with Dr. Rodriguez, later he seemed a bit more ambivalent with resident physician, with me while he noted many times about pain control or "just shoot me" he also noted that his would not want him to stop treatments. We will need to have ongoing discussions with him, would be hugely helpful to involve the . as above continue current care otherwise Subjective Patient seen and evaluated at bedside this morning. No acute events overnight. Patient feels "okay" today and has no complaints. Patient denies CP, SOB, abdominal pain, nausea, vomiting, lightheadedness, dizziness, and diarrhea. No dysuria. Discussed next steps with patient. During interview this morning, patient reports being unsure about if he wants to pursue further treatment, but also reports being unsure about hospice, despite patient's conversation with Dr. Rodriguez yesterday during which he expressed no interest in further treatment and was interested in hospice. Will revisit this later today. Review of Systems Review of Systems: See HPI Physical Exam Physical Exam: Constitutional: comfortable-appearing, no acute distress CV: irregularly irregular rhythm, no murmur appreciated Resp: CTABL, no wheezes/rales/rhonchi appreciated, fair air movement Neuro: AOx4, no focal neurological deficits appreciated Psych: cooperative, pleasant, appropriate rate/volume/quantity of speech Results & Data Results & Data ([facility]) Vital Signs (Past 12 Hours) Vital Signs Temp Pulse Pulse Resp BP Pulse Ox 05/17/21 07:41 84 05/17/21 07:00 36.5 C 85 18 121/67 96 05/17/21 03:00 36.6 C 100 H 18 114/56 L 97 05/16/21 23:32 36.5 C 108 H 18 137/72 97 05/16/21 22:19 102 H Resident Activity Tracking Resident Involvement: Resident Care Provided Care Provided: Adult Hospital Medicine
[2021-05-17] MEDS: oxyCODONE HCL IR 5 MG TAB (IMMEDIATE RELEASE) PO PRN (16:18)
[2021-05-17] MEDS ORDERED: MoRPHine SULFATE 2 MG/ML CARP IV PRN (18:31)
--- NOTE | 2021-05-17 20:07 | Billing Data ---
Date of Service May 17, 2021 Coding Level of Care Code 36640 Subseq Hosp Care Lvl 2
[2021-05-17] MEDS: DOXAZosin MESYLATE TAB 2 MG TAB PO SCH (20:51)
[2021-05-18] MEDS: MELATONIN 3 MG TAB PO PRN (01:09)
[2021-05-18] MEDS: LEVOTHYROXINE SODIUM 100 MCG TABLET PO SCH (05:59)
--- NOTE | 2021-05-18 06:06 | Electrocardiogram Report ---
Test Reason : Blood Pressure : / mmHG Vent. Rate : 098 BPM Atrial Rate : 098 BPM P-R Int : 148 ms QRS Dur : 092 ms QT Int : 346 ms P-R-T Axes : 048 037 061 degrees QTc Int : 441 ms Normal sinus rhythm Low voltage QRS Borderline ECG When compared with ECG of 16-MAY-2021 06:15, Sinus rhythm has replaced Atrial fibrillation QT has lengthened Confirmed by Delgado Scott ([id number]) on 05/18/2021 6:06:40 AM Referred By: REFERRED SELF Confirmed By:Delgado Scott
--- NOTE | 2021-05-18 06:41 | Hospitalist Progress Note ---
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 He recently developed bilateral PEs and Afib with RVR. He also has anemia, chronic respiratory failure with hypoxia, and COPD. He presented yesterday with shortness of breath. Shortness of breath: resolved Likely multifactorial, including: * Bilateral PE - based on his history with recent admissions from [facility] due to SOB, particularly the admission on the and CT showing slight improvement of pulmonary emboli, and development of pleural effusions, it seems that these are improving * Atrial fibrillation with RVR (below) * COPD * Fluid overload/congestive failure; CXR showed fluid overload, lasix given on admission - appears to have resolved, patient without crackles 05/18: increased oxygen requirement, CXR with progression of pleural effusions; holding off on diuresis at this time due to soft pressures Will perform serial exams Leukocytosis likely secondary to pneumonia Patient with leukocytosis to 25.5 on 05/18 (previous day 14) No SOB but mild confusion, diminished breath sounds at bases Patient without urinary symptoms CXR with bibasilar densities concerning for pneumonia; will treat for hospital-acquired PNA given patients recent extended hospitalizations and immunosuppression Zosyn added (05/18); had added vancomycin although this was discontinued when MRSA nares returned negative Goals of care Patient has been pursuing palliative treatments over the past month (e.g. tumor debulking, palliative chemotherapy) but expressed to Dr. Rodriguez on 05/17 that he no longer desires further treatment Patient's concerned about a sudden mood change that day Will continue to discuss this with patient, along with palliative care consult, once patient's mild confusion improves Afib with RVR New diagnosis since admission on May 13 - currently on treatment of Dilatezem, Metoprolol, Eliquis Continue to monitor HR Metoprolol IV PRN for tachycardia Echo from January 2021 - grade I diastolic dysfunction Anemia 7.6 on arrival, improved to 8.7 s/p transfusion of 1u pRBC Possibly secondary to patient's chemotherapy Hgb stable, no signs of active bleeding Trend daily CBC Hypotension Soft pressures on admission, but have since improved Continue to hold lisinopril 10mg DLBCL Received chemotherapy mini-CHOP regiment and Neulasta injection at [facility] on 05/07. Has follow-up appointments on with neurosurgery and follow-up with Dr. Rodriguez Currently on Acyclovir and Cipro, likely prophylaxis after chemotherapy regimen [place] [facility] [place] FEN: gentle IVF, regular diet Code status: DNR/DNI DVT ppx: eliquis PT/OT: ordered Case management: following Dispo: med/surg tele, possibly home with hospice pending discussion about patient's wishes with palliative care Admission and Anticipated Discharge Date Admission Date: May 15, 2021 Supervising Physician Co-Signing Physician Notes I personally examined the patient and verified all brown points of history and exam, discussed case, and agree with decision making with Dr Villalba Bit more somnolent today, although he will wake up and converse. Denies any chest pain or shortness of breath. No abdominal pain. Generally just seems to feel weak. vitals noted. Mildly uncomfortable from pain heent nc mmm lungs somewhat diminished at the bases difficult exam, no accessory muscle use good effort. No focal neuro deficits. Metabolic encephalopathy -Appears most likely related to hospital environment and infectious stress Pneumonia -Right lower lobe findings appear much worse, shows new leukocytosis. Aspiration versus healthcare associated. Zosyn. MRSA nares negativeno need for further Vanco. dyspnea on admission -acute likely from anemia and probable acute diastolic CHF (likely A. fib RVR driven)- now improved overall -also easily from afib itself particularly if rates were higher now improving overall, although had a little bump in his heart rate that appears to been related to the pneumonia -also subacutely from PE but no reason to suspect worse - and anticoagulated Continuing to discuss goals of care with patient as possible. Today more delirious a bit hard to have serious discussions in a meaningful way as above continue current care otherwise Subjective Patient seen and evaluated at bedside this morning. No acute events overnight. This morning, patient has some confusion in addition to a mild itchy generalized rash which is a bit worse on his back. Denies CP, other pain, SOB, dysuria, diarrhea, or other symptoms. Review of Systems Review of Systems: See HPI Physical Exam Physical Exam: Constitutional: comfortable-appearing, no acute distress CV: irregularly irregular rhythm, no murmur appreciated Resp: CTABL but slightly diminished sounds in bases bilaterally, fair air movement Skin: mild generalized erythematous maculopapular rash on arms, chest, and back Neuro: asleep but arousable, oriented to person and place only, mild confusion, no focal defecits Results & Data Results & Data ([facility]) Vital Signs (Past 12 Hours) Vital Signs Temp Pulse Resp BP BP Pulse Ox 05/18/21 02:31 36.8 C 113 H 18 104/62 96 05/17/21 22:30 36.8 C 110 H 18 97/59 L 93 05/17/21 19:27 36.8 C 100 H 18 90/56 L 95 Resident Activity Tracking Resident Involvement: Resident Care Provided Care Provided: Adult Hospital Medicine
[2021-05-18] MEDS: HEPARIN 100 UNIT/ML 5ML FLUSH FLUSH PRN ×4 (07:13→14:10)
[2021-05-18 07:55] LABS: Hematocrit (blood only) 26.5 % (42-52); Hemoglobin 8.5 g/dL (14.0-18.0); Mean Corpuscular Hemoglobin 32.3 pg (25-34); Mean Corpuscular Hgb Conc 32.1 g/dL (32-36); Mean Corpuscular Volume 100.8 fL (80-100); Mean Platelet Volume 10.8 fL (7.4-10.4); Nucleated RBC # (auto) 0.05 K/uL (0-0); Nucleated RBC % (auto) 0.2 %; Platelet Count 179 K/uL (130-400); RDW Coefficient of Variation 18.6 % (11.5-14.5); Red Blood Count 2.63 M/uL (4.7-6.1); White Blood Count 25.54 K/uL (4.8-10.8)
[2021-05-18 08:23] LABS: ANC (manual) 22.68 K/uL (1.4-6.5); Basophils # (manual) 0.23 K/uL (0-0.2); Basophils % (manual) 0.9 %; Dohle Bodies 1+; Eosinophils # (manual) 0.43 K/uL (0-0.5); Eosinophils % (manual) 1.7 %; Lymphocytes % (manual) 4.3 %; Monocytes # (manual) 0.66 K/uL (0.11-0.59); Monocytes % (manual) 2.6 %; Myelocytes # (manual) 0.43 K/uL (0-0); Myelocytes % (manual) 1.7 %; Neutrophils # (manual) 22.68 K/uL (1.4-6.5); Neutrophils % (manual) 88.8 %; Toxic Granulation 2+
[2021-05-18 08:26] LABS: BUN Creatinine Ratio 31.1 (10-20); Calcium 8.9 mg/dl (8.5-10.1); Est GFR (African American) 42.6 ml/min; Est GFR (Non-African American) 36.8 ml/min; Potassium 4.5 mmol/L (3.5-5.1)
[2021-05-18] MEDS: ACYCLOVIR 400 MG TAB PO SCH ×2 (08:26→20:49)
[2021-05-18] MEDS: CYANOCOBALAMIN 500 MCG TABLET (VITAMIN B-12) PO SCH (08:27)
[2021-05-18] MEDS: FINASTERIDE 5 MG TAB PO SCH (08:27)
[2021-05-18] MEDS: dilTIAZem HCL 240 MG CAPCR PO SCH (08:27)
[2021-05-18] MEDS: DOCUSATE SODIUM 100 MG CAP PO SCH ×2 (08:27→20:48)
[2021-05-18] MEDS: CIPROFLOXACIN 250 MG TAB PO SCH ×2 (08:27→20:48)
[2021-05-18] MEDS: APIXABAN 5 MG TABLET PO SCH ×2 (08:27→20:48)
[2021-05-18] MEDS: METOPROLOL SUCC 25MG EXT REL TAB PO SCH (08:27)
[2021-05-18] MEDS: SODIUM CHLORIDE 0.9% 10ML FLUSH IV SCH ×2 (08:28→20:48)
[2021-05-18] MEDS: BRIMONIDINE TARTRATE 0.2% 5ML OPL SCH ×2 (08:28→20:50)
[2021-05-18] MEDS: allopurinoL 300 MG TAB PO SCH (08:28)
[2021-05-18] MEDS: FLUTICASONE FUROATE 100MCG 14 PUFFS/INHALER INH SCH (08:29)
[2021-05-18] MEDS: BRINZOLAMIDE (AZOPT) OPS 10 ML BTL OPL SCH ×2 (08:29→20:50)
[2021-05-18] MEDS: UMECLIDINIUM/VILANTEROL 62.5/25MCG 7 PUFFS/INHALER INH SCH (08:29)
[2021-05-18] MEDS ORDERED: diphenhydrAMINE 50 MG/ML VIAL IV STA (09:29)
[2021-05-18] MEDS ORDERED: PIPERACILL/TAZOBAC CONSULT ACTIVE PRN (10:50)
--- NOTE | 2021-05-18 10:52 | XRay Report ---
XR chest 1V portable HISTORY: leukocytosis, confusion COMPARISON: Chest 05/15/2021. FINDINGS: No pneumothorax. Right jugular central venous catheter terminates at the SVC. Rotated study . Thoracic spinal fusion hardware is again noted. The heart remains mildly enlarged. Interval progres lucila of the small bilateral pleural effusions, bibasilar densities, and interstitial pulmonary edema. Suggestion of a fracture through the tip of one of the right thoracic spine pedicle screws. IMPRESSION: Interval progression of the small bilateral pleural effusions, bibasilar densities, and interstitial pulmonary edema. ACT 112: Negative or not required by law. Electronically signed by: Leo Stout M.D. 05/18/2021 10:51 AM
[2021-05-18] MEDS ORDERED: PIPERACILLIN/TAZOBACTAM 4.5 GM in DEXTROSE 5% 100 ML IV SCH (11:00)
[2021-05-18] MEDS ORDERED: VANCOMYCIN HCL 1,000 MG/270 ML BAG IV STA (11:08)
[2021-05-18] MEDS ORDERED: VANCOMYCIN CONSULT ACTIVE PRN (11:08)
[2021-05-18] MEDS ORDERED: PIPERACILLIN/TAZOBACTAM 3.375 GM in DEXTROSE 5% 100 ML IV ONE (11:15)
[2021-05-18] MEDS ORDERED: VANCOMYCIN HCL 1,750 MG in SODIUM CHLORIDE 0.9% 500 ML IV ONE (12:15)
[2021-05-18] MEDS: PIPERACILLIN/TAZOBACTAM 3.375 GM in DEXTROSE 5% 100 ML IV SCH (17:11)
--- NOTE | 2021-05-18 17:44 | Billing Data ---
Date of Service May 18, 2021 Coding Level of Care Code 78244 Subseq Hosp Care Lvl 3
[2021-05-18] MEDS: DOXAZosin MESYLATE TAB 2 MG TAB PO SCH (20:49)
[2021-05-19] MEDS: PIPERACILLIN/TAZOBACTAM 3.375 GM in DEXTROSE 5% 100 ML IV SCH ×3 (01:49→17:06)
[2021-05-19] MEDS ORDERED: SODIUM CHLORIDE 0.9% 1000ML 250 ML IV STA (04:33)
[2021-05-19] MEDS ORDERED: METOPROLOL TARTRATE 1 MG/ML VIAL IV STA (05:07)
[2021-05-19 05:23] LABS: Appearance Urine Clear (Clear); Bilirubin Urine Negative (Negative); Blood Urine Negative (Negative); Color Urine Yellow; Glucose Urine UA Negative (Negative); Ketones Urine Negative (Negative); Leukocyte Esterase Urine Negative (Negative); Nitrite Urine Negative (Negative); Protein Urine 2+ (Negative); Specific Gravity Urine 1.022 (1.000-1.030); Urobilinogen Urine Negative (Negative)
[2021-05-19] MEDS: LEVOTHYROXINE SODIUM 100 MCG TABLET PO SCH (05:34)
[2021-05-19] MEDS ORDERED: SODIUM CHLORIDE 0.9% 1000ML 250 ML IV ONE (05:48)
[2021-05-19] MEDS ORDERED: DIGOXIN 125 MCG in SYRINGE 9.5 ML IV ONE (06:45)
--- NOTE | 2021-05-19 06:46 | Hospitalist Progress Note ---
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 He recently developed bilateral PEs and Afib with RVR. He also has anemia, chronic respiratory failure with hypoxia, and COPD. He presented yesterday with shortness of breath. Goals of care Patient has been pursuing palliative treatments over the past month (e.g. tumor debulking, palliative chemotherapy) but expressed to Dr. Rodriguez on 05/17 that he no longer desires further treatment 05/19: patient was able to very clearly express he wants to go home on hospice; CM working on arrangements Levothyroxine, finasteride, B12 discontinued Shortness of breath: resolved Likely multifactorial, including: * Bilateral PE - based on his history with recent admissions from [facility] due to SOB, particularly the admission on the and CT showing slight improvement of pulmonary emboli, and development of pleural effusions, it seems that these are improving * Atrial fibrillation with RVR (below) * COPD * Fluid overload/congestive failure; CXR showed fluid overload, lasix given on admission - appears to have resolved, patient without crackles 05/19: tachycardia developed overnight with a brief episode of hypotension to 76/45, was given cautious IVF, 1.25mg metoprolol, and digoxin 125mcg, HR and BP improved Continue close monitoring Leukocytosis Leukocytosis continues to worsen; increased from 26 to 37 from 05/18 to 05/19 No SOB at this time, no urinary symptoms, afebrile CT chest with findings suggestive of infection vs inflammation; will continue empiric antibiotic coverage Continue zosyn; vancomycin discontinued after MRSA nares resulted negative Afib with RVR New diagnosis since admission on May 13 - currently on treatment of Dila tezem, Metoprolol, Eliquis Continue to monitor HR Metoprolol IV PRN for tachycardia, use cautiously given soft BP's Echo from January 2021 - grade I diastolic dysfunction Digoxin 125mcg given on 05/19 Anemia 7.6 on arrival, improved to 8.7 s/p transfusion of 1u pRBC Possibly secondary to patient's chemotherapy Hgb stable, no signs of active bleeding Trend daily CBC Hypotension Soft pressures on admission, but have since improved Continue to hold lisinopril 10mg DLBCL Received chemotherapy mini-CHOP regiment and Neulasta injection at [facility] on 05/07. Has follow-up appointments on with neurosurgery and follow-up with Dr. Rodriguez Currently on Acyclovir and Cipro, likely prophylaxis after chemotherapy regimen (started at [facility] [place] FEN: gentle IVF, regular diet Code status: DNR/DNI DVT ppx: missy PT/OT: ordered Case management: following Dispo: med/surg tele until home hospice is arranged Admission and Anticipated Discharge Date Admission Date: May 15, 2021 Supervising Physician Co-Signing Physician Notes I personally examined the patient and verified all brown points of history and exam, discussed case, and agree with decision making with Dr Villalba Fatigued and falls asleep easily, but when he is awake he shows good understanding and capacity. He denies any new complaints, just notes that he is very tired. He and R2 have an extensive, ab, and detailed discussion about his current situation and wishes. The patient is very clear (and repeatedly so, and multiple different lines of questioning) that he does not want further treatment, and really just wants to be comfortable. Resident physician then called his family to update, and was able to have good discussions with them as well. Vitals noted, in general he is very fatigued but no distress. HEENT normocephalic atraumatic mucous membranes moist. Breathing unlabored no accessory muscle use good effort. The midline incision is back appears to be healing nicely. No focal neuro deficits. Septic appearancegiven the strange evolution of his white count and symptoms, we repeated chest imaging with CTthis actually did not show any pneumonia, showing that the chest x-ray yesterday probably was more basilar haze than infiltrate. Unfortunately with his white count rising and his clinical situation deteriorating, while there could be sepsis of an unknown source, the greater concern is this all relates to decompensation of his lymphoma. We will continue empiric antibiotics, but otherwise he wants no further treatment for the lymphoma. Lymphomavery clear he does not want treatment, given his overall deterioration/weakness etc., he expresses an interest in hospice. This is now being set up by case management, and family is visiting with him. Offered support of his decisions, given how weak/frail, and ill he is. dyspnea on admission -acute likely from anemia and probable acute diastolic CHF (likely A. fib RVR driven)- now improved overall -also easily from afib itself particularly if rates were higher -also subacutely from PE but no reason to suspect worse - and anticoagulated Goal of care is now hospiceworking on facilitating the best arrangements for possible out of hospital care. Subjective Patient seen and evaluated at bedside this morning. Overnight, patient became tachycardic to 170s and BP was soft. EKG showed afib with RVR. Patient was given a 250cc fluid bolus cautiously due to concern for fluid overload. Patient showed no improvement. Patient was then given 1.25mg metoprolol, which resulted in a brief reduction in HR to 100's before returning to 170s. Then patient developed hypotension to 76/45 and was given another 250cc bolus; afterward, HR improved to 110s and BP improved to 114/71. Patient was then given 125mcg of digoxin; there were no further events overnight. This morning, patient feels well and has no specific complaints. Patient's confusion from yesterday had resolved and so patient was able to engage in a lucid and meaningful discussion about end of life care. Patient expressed in very clear terms that he does not want to pursue any further treatment of his cancer and would like to go home on hospice. I felt patient had a very clear understanding of the situation and felt his decision-making was logical and rational. Spoke with CM to arrange home hospice. Denies CP, other pain, SOB, dysuria, diarrhea, or other symptoms. Review of Systems Review of Systems: See HPI Physical Exam Physical Exam: Constitutional: comfortable-appearing, no acute distress CV: irregularly irregular rhythm, no murmur appreciated Resp: CTABL but slightly diminished sounds in bases bilaterally, fair air movement Skin: mild generalized erythematous maculopapular rash on arms, chest, back, and head Neuro: sleepy but arousable, oriented to person and place only, no confusion, no focal deficits Results & Data Results & Data ([facility]) Vital Signs (Past 12 Hours) Vital Signs Temp Pulse Pulse Resp BP Pulse Ox 05/19/21 06:37 36.8 C 125 H 18 131/73 98 05/19/21 06:22 120 H 114/71 05/19/21 05:55 107 H 20 101/65 98 05/19/21 05:38 146 H 20 76/45 L 97 05/19/21 04:00 137 H 99/47 L 93 05/19/21 03:13 36.7 C 128 H 18 110/54 L 90 05/19/21 00:59 120 H 05/18/21 22:34 37 C 127 H 18 107/59 L 95 05/18/21 19:00 37 C 119 H 20 129/67 93 Resident Activity Tracking Resident Involvement: Resident Care Provided Care Provided: [facility] Medicine
[2021-05-19 06:49] LABS: RBC Urine Automated 0-4 /hpf (0-4)
[2021-05-19 06:51] LABS: Bacteria Urine Automated 1+ (Negative)
--- NOTE | 2021-05-19 07:08 | XRay Report ---
XR chest 1V portable CLINICAL HISTORY: pneumonia COMPARISON STUDY: Chest CT May 13, 2021. Chest radiograph May 18, 2021. FINDINGS: Right internal jugular [id number] is in place. There are postoperative findings within t he thoracic spine consistent with multilevel fusion. Cardiac mediastinal silhouette is stable. Inters titial thickening persists. There are persistent bilateral pleural effusions and bibasilar opacities. IMPRESSION: No significant change in pulmonary edema, bilateral pleural effusions and associated bib asilar opacities. ACT 112: Negative or not required by law. Electronically signed by: Matias Natarajan M.D. 05/19/2021 7:07 AM
[2021-05-19] MEDS: HEPARIN 100 UNIT/ML 5ML FLUSH FLUSH PRN (07:27)
[2021-05-19 07:36] LABS: BUN Creatinine Ratio 29.4 (10-20); Calcium 8.3 mg/dl (8.5-10.1); Creatinine Clr Calc Pharmacy 35.7 ml/min; Est GFR (African American) 45.2 ml/min; Potassium 4.3 mmol/L (3.5-5.1)
[2021-05-19 08:17] LABS: Hematocrit (blood only) 26.4 % (42-52); Hemoglobin 8.6 g/dL (14.0-18.0); Mean Corpuscular Hemoglobin 32.5 pg (25-34); Mean Corpuscular Hgb Conc 32.6 g/dL (32-36); Mean Corpuscular Volume 99.6 fL (80-100); Mean Platelet Volume 10.3 fL (7.4-10.4); Nucleated RBC # (auto) 0.03 K/uL (0-0); Nucleated RBC % (auto) 0.1 %; Platelet Count 163 K/uL (130-400); RDW Coefficient of Variation 18.8 % (11.5-14.5); RDW Standard Deviation 67.6 fL (36.4-46.3); Red Blood Count 2.65 M/uL (4.7-6.1); White Blood Count 37.49 K/uL (4.8-10.8)
[2021-05-19] MEDS ORDERED: diphenhydrAMINE 50 MG/ML VIAL IV STA ×2 (08:30→19:26)
[2021-05-19 09:15] LABS: ANC (manual) 34.79 K/uL (1.4-6.5); Basophilic Stippling 1+; Eosinophils % (manual) 0.8 %; Lymphocytes % (manual) 2.4 %; Myelocytes % (manual) 1.6 %; Neutrophils # (manual) 34.79 K/uL (1.4-6.5); Neutrophils % (manual) 92.8 %; Platelet Estimate Normal (Normal); Polychromasia 1+; Promyelocytes % (manual) 2.4 %; Toxic Granulation 1+; Toxic Vacuolation 1+
[2021-05-19] MEDS: ACYCLOVIR 400 MG TAB PO SCH ×2 (09:22→21:21)
[2021-05-19] MEDS: ACETAMINOPHEN 500 MG TAB PO SCH ×3 (09:22→21:20)
[2021-05-19] MEDS: SODIUM CHLORIDE 0.9% 10ML FLUSH IV SCH ×2 (09:22→21:20)
[2021-05-19] MEDS: BRINZOLAMIDE (AZOPT) OPS 10 ML BTL OPL SCH ×2 (09:23→21:19)
[2021-05-19] MEDS: APIXABAN 5 MG TABLET PO SCH ×2 (09:23→21:20)
[2021-05-19] MEDS: allopurinoL 300 MG TAB PO SCH (09:23)
[2021-05-19] MEDS: CIPROFLOXACIN 250 MG TAB PO SCH (09:23)
[2021-05-19] MEDS: dilTIAZem HCL 240 MG CAPCR PO SCH (09:24)
[2021-05-19] MEDS: CYANOCOBALAMIN 500 MCG TABLET (VITAMIN B-12) PO SCH (09:24)
[2021-05-19] MEDS: DOCUSATE SODIUM 100 MG CAP PO SCH ×2 (09:25→21:21)
[2021-05-19] MEDS: METOPROLOL SUCC 25MG EXT REL TAB PO SCH (09:25)
[2021-05-19] MEDS: FINASTERIDE 5 MG TAB PO SCH (09:25)
[2021-05-19] MEDS: UMECLIDINIUM/VILANTEROL 62.5/25MCG 7 PUFFS/INHALER INH SCH (09:26)
[2021-05-19] MEDS: FLUTICASONE FUROATE 100MCG 14 PUFFS/INHALER INH SCH (09:26)
[2021-05-19] MEDS: oxyCODONE HCL IR 5 MG TAB (IMMEDIATE RELEASE) PO PRN (09:27)
[2021-05-19] MEDS: BRIMONIDINE TARTRATE 0.2% 5ML OPL SCH ×2 (10:46→21:19)
--- NOTE | 2021-05-19 10:55 | CT Scan Report ---
CT chest diagnostic wo con CLINICAL HISTORY: sepsis, concern for pneumonia +/- fluid overload COMPARISON STUDY: May 13, 2021 CT DOSE: 446.08 mGy.cm TECHNIQUE: CT of the thorax was performed from the thoracic inlet to the lung bases. Images are revi ewed in the axial, sagittal, and coronal planes. IV contrast was not administered for this examinatio n. A dose lowering technique was utilized adhering to the principles of ALARA. FINDINGS: There is no axillary, supra clavicle or internal mammary lymphadenopathy seen. Multiple mediastinal lymph nodes are not enlarged. Right-sided central line is seen with tip terminating within distal aspect of superior vena cava. Thyroid: Thyroid gland is not well seen. Thoracic aorta: Ascending thoracic aorta is normal in caliber. Previously seen slightly hypoattenuati ng collection surrounding descending portion of thoracic aorta is unchanged on current exam, however evaluation is suboptimal due to lack of IV contrast. It was better evaluated on recent CT of the ches t performed less than one week ago. Heart: The heart is normal in size and configuration, without pericardial effusion. Calcifications of coronary arteries are seen. Lungs and pleural spaces: Tracheobronchial tree is patent. Mild centrilobular upper lobe predominant emphysema is seen. Interval worsening of bilateral pleural effusion, now appear moderate and associated with atelectasis at dependent portions of bilateral lower lobes. Interval development of focal area of ground glass attenuation and small nodular opacities within rig ht upper lobe (). Also interval development of small groundglass nodule within anterior subpleura l aspect of the right upper lobe is seen on the same level. Interval development of ill-defined opacity at subpleural aspect of the right upper lobe which was no t seen on recent prior study () Overall evaluation of pulmonary parenchyma is limited due to motion artifact. Upper abdomen: No acute abnormalities. Evaluation is limited due to mild motion artifact. Skeletal structures: Stable position of transpedicular screws and metallic plates within thoracic spi ne within T4, T5, T7 and T8 as well as multilevel laminectomy changes. Degenerative changes of the sp ine are again seen. Sclerotic appearance/blastic lesion of the T7 vertebral body is unchanged since r ecent prior. IMPRESSION: 1. Interval development of multiple focal consolidative opacities predominantly within the right jeremiah g which could represent infectious/inflammatory process. Differential diagnosis could also include pu lmonary necrosis which could be seen in pulmonary embolus. Please correlate above-mentioned findings with clinical presentation. 2. Interval worsening of bilateral pleural effusion associated with atelectasis at dependent portion s of bilateral lower lobes. 3. Emphysema. 4. Redemonstration of hypoattenuating mass surrounding descending portion of aorta which is better s een during prior study due to intravenous contrast administration. 5. Stable position and appearance of orthopedic hardware within thoracic spine. 6. The rest of findings as above. ACT 112: Negative or not required by law. The above report was generated using voice recognition software. It may contain grammatical, syntax o r spelling errors. Electronically signed by: Iva Jin DO 05/19/2021 10:54 AM
--- NOTE | 2021-05-19 12:17 | Electrocardiogram Report ---
Test Reason : Blood Pressure : / mmHG Vent. Rate : 148 BPM Atrial Rate : 166 BPM P-R Int : 000 ms QRS Dur : 082 ms QT Int : 286 ms P-R-T Axes : 000 046 053 degrees QTc Int : 449 ms Atrial fibrillation with rapid ventricular response Low voltage QRS Abnormal ECG When compared with ECG of 17-MAY-2021 05:29, Atrial fibrillation has replaced Sinus rhythm Vent. rate has increased BY 50 BPM Confirmed by Sanjay Waldron ([id number]) on 05/19/2021 12:16:28 PM Referred By: REFERRED SELF Confirmed By:Rex Waldron
--- NOTE | 2021-05-19 16:31 | Billing Data ---
Date of Service May 19, 2021 Coding Level of Care Code 92343 Subseq Hosp Care Lvl 3
[2021-05-19] MEDS ORDERED: diphenhydrAMINE 50 MG/ML VIAL IV PRN ×2 (19:48→19:58)
[2021-05-19] MEDS: DOXAZosin MESYLATE TAB 2 MG TAB PO SCH (21:21)
[2021-05-20] MEDS: PIPERACILLIN/TAZOBACTAM 3.375 GM in DEXTROSE 5% 100 ML IV SCH ×2 (01:30→09:13)
[2021-05-20] MEDS: ACETAMINOPHEN 500 MG TAB PO SCH ×2 (06:09→13:46)
[2021-05-20] MEDS: HEPARIN 100 UNIT/ML 5ML FLUSH FLUSH PRN ×3 (06:09→13:44)
[2021-05-20] MEDS ORDERED: VANCOMYCIN CONSULT ACTIVE PRN (07:31)
--- NOTE | 2021-05-20 07:43 | Hospitalist Progress Note ---
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 He recently developed bilateral PEs and Afib with RVR. He also has anemia, chronic respiratory failure with hypoxia, and COPD. He presented yesterday with shortness of breath. Goals of care Patient has been pursuing palliative treatments over the past month (e.g. tumor debulking, palliative chemotherapy) but expressed to Dr. Rodriguez on 05/17 that he no longer desires further treatment 05/19: patient was able to very clearly express he wants to go home on hospice; CM working on arrangements Levothyroxine, finasteride, B12 discontinued Shortness of breath: resolved Likely multifactorial, including: * Bilateral PE - based on his history with recent admissions from [facility] due to SOB, particularly the admission on the and CT showing slight improvement of pulmonary emboli, and development of pleural effusions, it seems that these are improving * Atrial fibrillation with RVR (below) * COPD * Fluid overload/congestive failure; CXR showed fluid overload, lasix given on admission - appears to have resolved, patient without crackles 05/19: tachycardia developed overnight with a brief episode of hypotension to 76/45, was given cautious IVF, 1.25mg metoprolol, and digoxin 125mcg, HR and BP improved Continue close monitoring Leukocytosis Leukocytosis continues to worsen; increased from 26 to 37 from 05/18 to 05/19 No SOB at this time, no urinary symptoms, afebrile CT chest with findings suggestive of infection vs inflammation; will continue empiric antibiotic coverage Continue zosyn; vancomycin discontinued after MRSA nares resulted negative Afib with RVR New diagnosis since admission on May 13 - currently on treatment of Dila tezem, Metoprolol, Eliquis Continue to monitor HR Metoprolol IV PRN for tachycardia, use cautiously given soft BP's Echo from January 2021 - grade I diastolic dysfunction Digoxin 125mcg given on 05/19 Anemia 7.6 on arrival, improved to 8.7 s/p transfusion of 1u pRBC Possibly secondary to patient's chemotherapy Hgb stable, no signs of active bleeding Trend daily CBC Hypotension Soft pressures on admission, but have since improved Continue to hold lisinopril 10mg DLBCL Received chemotherapy mini-CHOP regiment and Neulasta injection at [facility] on 05/07. Has follow-up appointments on with neurosurgery and follow-up with Dr. Rodriguez Currently on Acyclovir and Cipro, likely prophylaxis after chemotherapy regimen ([place] [facility] FEN: gentle IVF, regular diet Code status: DNR/DNI DVT ppx: missy PT/OT: ordered Case management: following Dispo: med/surg tele until home hospice is arranged Admission and Anticipated Discharge Date Admission Date: May 15, 2021 Review of Systems Review of Systems: See HPI Results & Data Results & Data ([facility]) Vital Signs (Past 12 Hours) Vital Signs Temp Pulse Pulse Resp BP Pulse Ox 05/20/21 07:28 36.3 C L 88 18 117/61 95 05/20/21 07:18 104 H 05/20/21 04:01 36.4 C L 103 H 18 113/63 92 05/20/21 00:13 94 H 05/19/21 23:55 36.6 C 72 18 98/59 L 98
[2021-05-20] MEDS: dilTIAZem HCL 240 MG CAPCR PO SCH (09:19)
[2021-05-20] MEDS: UMECLIDINIUM/VILANTEROL 62.5/25MCG 7 PUFFS/INHALER INH SCH (09:19)
[2021-05-20] MEDS: allopurinoL 300 MG TAB PO SCH (09:20)
[2021-05-20] MEDS: ACYCLOVIR 400 MG TAB PO SCH (09:20)
[2021-05-20] MEDS: DOCUSATE SODIUM 100 MG CAP PO SCH (09:21)
[2021-05-20] MEDS: APIXABAN 5 MG TABLET PO SCH (09:21)
[2021-05-20] MEDS: METOPROLOL SUCC 25MG EXT REL TAB PO SCH (09:22)
--- NOTE | 2021-05-20 09:27 | Pharmacy Report ---
Pharmacy Abx Initial Consult - Date of Service May 20, 2021 - Pharmacy Dosing Scope Date of Consult: 05/20/21 Consultation requested by: Dr. Villalba Pharmacy is consulted to initiate VANCOMYCIN IV dosing therapy, order appropriate labs and adjust drug dose/frequency. - Subjective The patient is a 86 year old M admitted on 05/15/21 18:50. - Objective Height: 5 ft 11 in Weight: 89.8 kg Vital Signs (Past 12hrs): Vital Signs Temp Pulse Pulse Resp BP Pulse Ox 05/20/21 07:28 36.3 C L 88 18 117/61 95 05/20/21 07:18 104 H 05/20/21 04:01 36.4 C L 103 H 18 113/63 92 05/20/21 00:13 94 H 05/19/21 23:55 36.6 C 72 18 98/59 L 98 Lab Results (24hrs): Laboratory Tests (24 Hours) 05/19/21 05/19/21 05/19/21 09:11 09:11 06:46 WBC Creatinine 1.58 H Est Cr Clr Drug Dosing 35.7 C-Reactive Protein 8.61 H Procalcitonin 0.33 05/19/21 06:46 WBC 37.49 H* D Creatinine Est Cr Clr Drug Dosing C-Reactive Protein Procalcitonin Micro Results: 05/19/21 11:28 Aerobic Blood Culture - Pending Blood 05/19/21 11:20 Aerobic Blood Culture - Pending Blood Anaerobic Blood Culture - Pending 05/19/21 05:06 Urine Culture - Pending Urine,Clean Catch - Risk Factors for Resistance * Immunocompromised (chronic steroid therapy, chemotherapy, immunomodulators) - Assessment & Plan Assessment 86 year old M receiving Vancomycin + Zosyn for sepsis. Plan Vancomycin IV * Loading dose: 1500mg (17 mg/kg) * Maintenance dose: 1000mg IV (11 mg/kg) every 24 hours * Dosing to achieve an AUC between 400-600, Trough ~16. Piperacillin/tazobactam * Continue 3.375g IV extended infusion every 8 hours for CrCl greater than 20 mL/min. Pharmacy will continue to follow and will adjust dose/frequency as necessary. Thank you.
[2021-05-20] MEDS ORDERED: VANCOMYCIN HCL 1,500 MG in SODIUM CHLORIDE 0.9% 500 ML IV ONE (09:30)
[2021-05-20] MEDS: BRIMONIDINE TARTRATE 0.2% 5ML OPL SCH (09:33)
[2021-05-20] MEDS: BRINZOLAMIDE (AZOPT) OPS 10 ML BTL OPL SCH (09:34)
[2021-05-20] MEDS: SODIUM CHLORIDE 0.9% 10ML FLUSH IV SCH (09:35)
--- NOTE | 2021-05-20 14:03 | Discharge Summary ---
Date of Service May 20, 2021 Admission HPI Per Admitting Provider Mr. Wiggins is an 86 y/o male with PMHx of Aggressive B Cell Lymphoma on Chemotherapy, Bilateral PEs on Eliquis, Atrial Fibrillation, Chronic Respiratory Failure with Hypoxia/COPD (Chronic 3 L O2), T2DM, CKD, HLD, HTN, Hypothyroidism, and Spinal Surgery due to Mass who presents from [facility] due to SOB. Pt was admitted to [facility] on April 20 due to bilateral lower extremity weakness due to mass compression on spinal cord. He was also found to have PEs and a liver mass. He underwent surgery on 21 April for the spinal cord mass. 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 He underwent initial chemotherapy and Neulasta treatment while at [facility]. states he was in the hospital approx. 2 weeks. He has been sent over from [facility] multiple times due to SOB and may be too aggressive of rehab for him. On 13 May, he was sent over and found to be in A Fib RVR and a Hgb of 6.8. He was transfused 1 unit and the heart rates resolved. He was sent back to [facility] that night. states he had a very good day yesterday, improved appetite and energy. However, patient was reporting SOB today. Per report, facility wanted to have new PEs ruled out. Patient is resting laying predominantly flat in the bad. He had a pain medication and is sleepy but easily awakens and answers questions appropriately. He reports his SOB feels better since arrival. Pt did present in A Fib with RVR and possibly the cause of his SOB. Hgb was 7.6 on labs and a receiving 1 unit PRBC currently. CTA on 13 May revealed slight improvement in bilateral PEs with no new ones identified and pleural effusions. CXR today reveals evidence of fluid overload and congestive failure and layering pleural effusion with bibasilar consolidation. Is currently on anticoagulation with Eliquis. No signs of active bleeding. Admission Exam Per Admitting Provider General Appearance: Chronically ill appearing male in NAD who is A&O x 3; had a pain medication so falls asleep but wakes up easily HEENT: Head is normocephalic/atraumatic; EOMI; PERRLA; Hearing grossly intact; Mucous membranes moist; Pharynx negative for exudate/lesions Neck: Supple; Trachea midline; Neg JVD; Neg lymphadenopathy Heart: RRR with no M/G/R Lungs: CTA in all lung palma bilaterally; Respirations unlabored; Neg accessory muscle use Abdomen: Soft, non-tender, non-distended; Positive BS x 4 quadrants; Neg organomegaly Extremities: Capillary refill < 2 seconds; Neg cyanosis or edema Neurological: Speech clear; Gross motor/sensory function intact; Neg focal neurologic deficits Psychiatric: Appropriate mood/affect Skin: Normal Color; Warm/Dry; superficial abrasion to R knee without signs of erythema, drainage, or bleed Principal Diagnosis lymphoma Discharge Exam Constitutional: comfortable-appearing, no acute distress CV: irregularly irregular rhythm, no murmur appreciated Resp: CTABL but slightly diminished sounds in bases bilaterally, fair air movement Skin: mild generalized erythematous maculopapular rash on arms, chest, back, and head Neuro: sleepy but arousable, oriented to person and place only, no confusion, no focal deficits Discharge Data Allergies Allergy/AdvReac Type Severity Reaction Status Date / Time No Known Allergies Allergy Verified 05/15/21 15:20 Consultations 05/15/21 20:47 Consult Hematology Routine Ordered Studies 05/19/21 09:49 CT chest diagnostic wo con Urgent Hospital Course (1) SOB (shortness of breath): Patient's SOB improved with diuresis in addition to rate control. Patient's symptoms were felt to multifactorial in etiology, including patient's rapid heart rate, known bilateral pulmonary emboli, fluid overload, COPD, anemia, and deconditioning. Patient developed a leukocytosis which was initially felt to be secondary to a developing pneumonia, and empiric antibiotics were started; however, after patient's leukocytosis increased to 37.5, it was suspected to represent a worsening of patient's very aggressive lymphoma. At multiple times throughout this hospitalization, patient was able to engage in meaningful and rational conversations about end-of-life care, and expressed in no uncertain terms that he was no longer interested in continued lymphoma treatment. Patient did however express interest in treating infections if they arose. After multiple discussions with patient and patient's family, patient elected for discharge home with home hospice. On hospital day five, one of two blood cultures grew gram-positive cocci. Patient was offered the options of withdrawing treatment, continuing empiric IV antibiotic therapy, or treating wi th oral antibiotic therapy from home; patient and family chose the latter. Patient was discharged on hospital day six with a one-week course of oral augmentin, palliative medications, and home hospice arrangements in place. Total Time Total Time Spent Total Time Spent (In Minutes): <30 Discharge Plan Discharge Items Patient Disposition: Hospice - Home Reason For Visit: ACUTE ANEMIAL ATRIAL FIBRILLATION WITH RVR Discharge Diagnosis: DLBCL, afib with RVR, CHF exacerbation Activity: Resume your previous activity Non-emergency contact: Primary Care Provider Call non-emergency contact if: your symptoms worsen and your pain is not controlled Follow-up/Referrals: PCP,NO [Physician] - Diet: Regular Addtl Attending Provider Instructions: You were admitted to the hospital for shortness of breath. You were treated with diuresis (water pills), antibiotics, pain control, and heart medicine. You have decided to go home on hospice, and we support your decision. Medications: Your medication list has been reviewed and reconciled upon discharge to ensure a ccuracy and continuity of care. An updated list of all your medications is included with your hospital discharge paperwork. Please review this list closely, and make note of any changes. * We sent a new medication called lorazepam (Ativan) to your pharmacy. Take lorazepam (0.5mg) one tablet every six hours for restlessness or anxiety. You can also use lorazepam for "air hunger" (or shortness of breath) if oxycodone (below) isn't working well enough. * We sent a new medication called oxycodone to your pharmacy. Take oxycodone (5mg) one tablet every six hours for pain or "air hunger" (shortness of breath). You can also use oxycodone for restlessness if lorazepam (above) isn't working well enough. * We sent a new medication called amoxicillin-clavulanate (also known as Augmentin) to your pharmacy. This is an antibiotic which we will use to treat the potential blood infection that Jose Alejandro might have. Take amoxicillin- clavulanate (15mL or one tablespoon) twice daily for one week. Take your medications as instructed; do not skip a dose of your medicines. Make sure all of your doctors know every medicine you are taking (including gukq-jjh-gzmnysm medicines, vitamins, and supplements). Call your primary care provider before taking any new medicines (including pzeu-mjz-shehssx medicines, vitamins, and supplements), because some of these may interact with your current medications, or may make your symptoms worse. Tell your primary care provider if you cannot afford your medications. If you have any questions or concerns, please contact the [facility]. We wish you and your family the best. It's been a pleasure to participate in your care. Pending Studies at Discharge: No Stand-Alone Forms: [facility] Medications and DC Order Prescriptions: New lorazepam 0.5 mg tablet 0.5 mg PO Q6H PRN (Reason: anxiety) Qty: 10 RF: 0 oxycodone 5 mg tablet 5 mg PO Q6H PRN (Reason: pain) Qty: 10 RF: 0 amoxicillin-pot clavulanate [Augmentin] 250-62.5 mg/5 mL suspension for reconstitution 15 ml PO BID 7 Days Qty: 210 RF: 0 Continued (DME) CPAP Supplies Misc See Rx Instructions .ROUTE .MEDSUPPLY Qty: 1 RF: 0 (DME) CPAP Machine Misc See Dose Instructions .ROUTE .MEDSUPPLY Qty: 1 RF: 0 diclofenac sodium 1 % gel 2 g topical QID PRN (Reason: Pain) RF: 0 docusate sodium 100 mg tablet 100 mg PO BID RF: 0 doxazosin 2 mg tablet 2 mg PO HS Qty: 90 RF: 1 Eliquis 5 mg Tablet 5 mg PO BID RF: 0 ciprofloxacin HCl 250 mg Tablet 250 mg PO Q12H RF: 0 acyclovir 400 mg Tablet 400 mg PO BID RF: 0 allopurinol 300 mg Tablet 300 mg PO DAILY RF: 0 brinzolamide 1 % Drops,Suspension 1 drp OPL Q12 RF: 0 brimonidine 0.2 % Drops 1 drp OPL Q12 RF: 0 Trelegy Ellipta 100-62.5-25 mcg Blister With Device 1 inh INHALATION DAILY RF: 0 Albuterol Cfc Free 90 Mcg/Inh 2 puff inhalation Q4H PRN (Reason: Shortness Of Breath Or Wheezing) RF: 0 acetaminophen [Tylenol] 325 mg Tablet 650 mg PO Q4H PRN (Reason: Pain (Scale Score 1-3)) RF: 0 polyethylene glycol 3350 [Miralax] 17 gram Powder In Packet 17 g PO DAILY PRN (Reason: Constipation) RF: 0 sennosides-docusate sodium [Senokot-S] 8.6-50 mg Tablet 1 tab-cap PO QDL PRN (Reason: Constipation) RF: 0 diltiazem HCl 240 mg Capsule,Extended Release 24 Hr 240 mg PO DAILY RF: 0 magnesium hydroxide [Milk of Magnesia] 400 mg/5 mL Suspension 30 ml PO DAILY PRN (Reason: Constipation) RF: 0 bisacodyl 10 mg Suppository 10 mg OK DAILY PRN (Reason: Constipation) RF: 0 Fleet Enema 19-7 gram/118 mL Enema 133 ml OK DAILY PRN (Reason: Constipation) RF: 0 metoprolol succinate 25 mg Tablet Extended Release 24 Hr 25 mg PO DAILY RF: 0 oxycodone 5 mg Tablet 7.5 mg PO Q6H PRN (Reason: Pain (Scale Score 4-10)) RF: 0 Rocklatan 0.02-0.005 % Drops 1 drp OPB PM RF: 0 Discontinued cyanocobalamin (vitamin B-12) 500 mcg Tablet 1,000 mcg PO QAM 30 Days Qty: 60 RF: 3 lisinopril 10 mg Tablet 10 mg PO DAILY RF: 0 sodium chloride 0.9 % (flush) [Normal Saline Flush] Syringe 10 ml IV Q12H RF: 0 Narcan 4 mg/actuation [place],Non-Aerosol 4 mg INTRANASAL ONCE PRN (Reason: OVER SEDATION) RF: 0 levothyroxine 100 mcg tablet 100 mcg PO DAILYBB RF: 0 finasteride 5 mg tablet 5 mg PO QAM RF: 0 No Action (DME) Wheelchair (Manual) Device See Rx Instructions .Route Qty: 1 RF: 0 Discharge Orders: Discharge Order (Routine); Ordered 05/20/21 Ordered By: Vinnie Villalba Admission Data Admit Date/Time: 05/15/21 18:50 Attending Provider: Anthony Pate Admit Provider: Joseph Jacobsen Primary Care Provider: Kt Valerio III Other Providers: Rudy Rodriguez V. ; Joseph Jacobsen ; [facility] Other Interventions: Discharge Summary Assessment (RN) Last Done: 05/20/21 13:57 Supervising Physician Co-Signing Physician Notes I personally examined the patient and verified all brown points of history and exam, discussed case, and agree with decision making with Dr Villalba Mostly really just wants to go home. Vitals noted, in general he is very fatigued but no distress. HEENT normocephalic atraumatic mucous membranes moist. Breathing unlabored no accessory muscle use good effort. The midline incision is back appears to be h ealing nicely. No focal neuro deficits. Septic appearanceconcerned predominantly this may be decompensation of the lymphoma. Could be sepsisblood cultures are showing 1 out of 2 gram-positive cocci in chains. Patient really wants to be able to pass at home, and given his overall severity of illness, he would prefer to go home rather than stay for full diagnosis and treatment of this septic appearance. That said, and does seem reasonable to at least treat (even if it is partially treat) the potential for sepsis with p.o. antibiotics to maybe buy him a little bit more time with his family. Lymphomavery clear he does not want treatment, given his overall deterioration/weakness etc., this is really reasonable. Set up for home with hospice. dyspnea on admission -acute likely from anemia and probable acute diastolic CHF (likely A. fib RVR driven)- now improved overall -also easily from afib itself particularly if rates were higher -also subacutely from PE but no reason to suspect worse - and anticoagulated Goal of care is now hospiceeverything set up and he is going home with hospice today. Resident Activity Tracking Resident Involvement: Resident Care Provided Care Provided: Adult Hospital Medicine
--- NOTE | 2021-05-20 19:03 | Billing Data ---
Date of Service May 20, 2021 Coding Level of Care Code D/C DAY MANAGEMENT <30 MINS
[2021-05-21] MEDS ORDERED: VANCOMYCIN HCL 1,000 MG in SODIUM CHLORIDE 0.9% 250 ML IV SCH (09:00)
--- NOTE | 2021-05-22 18:22 | Communication Note ---
Date of Service: May 22, 2021 I was notified today between 12:30pm and 1:00pm that one of two blood cultures from 05/19/2021 was positive for vancomycin-resistant Enterococcus faecium. Prior to patient's discharge with home hospice on 05/20/2021, this blood culture had been positive for Gram-positive cocci in chains. Patient was offered the options of withdrawing treatment, continuing empiric IV antibiotic therapy, or treating with oral antibiotic therapy from home; patient and family chose the latter. Patient went home with home hospice with one week of augmentin therapy. Today, when I received the call about the culture and speciation resulting with VRE, I went to discuss this with an attending physician to decide what type of oral antibiotic therapy we could offer to patient. While this discussion was ongoing, RN had just spoken with patient's family on the phone, and was told by patient's that patient had moments prior. Condolences were offered and patient's family expressed appreciation. Resident Activity Tracking Resident Involvement: Resident Care Provided Care Provided: Adult Hospital Medicine
== END 2021-05-20 15:30 | disposition hospice, home (50) | DRG 308 ==
LOC: ED 12:18 → 2W 18:50 → SUATTDRO 18:50 → 2W 20:06